=== PATIENT | female | born 1990 | race Caucasian/White ===

== ENCOUNTER 2020-07-30 08:14 | Emergency (ER) | payer OTHER, SELFPAY ==
[2020-07-30 08:21] VITALS: BMI 38.1
[2020-07-30 08:30] VITALS: BP 140/89; PULSE 92; RESP 16; TEMP 36.9; O2SAT 97; O2SAT 98
[2020-07-30] MEDS: diphenhydrAMINE 50 mg/mL SDV 1mL IVP (08:53)
[2020-07-30] MEDS: promethazine 25 mg/mL SDV 1 mL IM (08:55)
[2020-07-30] MEDS: ketorolac 30 mg/mL INJ IVP (08:56)
[2020-07-30] MEDS: sodium chloride 0.9% 1,000 ML 999 ML IV (08:57)
--- NOTE | 2020-07-30 09:04 | ED_ITS ---
HPI - General Adult General: Chief complaint: General Medical Stated complaint: Migrane Time Seen by Provider: 07/30/20 08:20 History of Present Illness: HPI narrative: 30-year-old female presents emergency room with migraine for the last 8 days. She has tried Toradol and Phenergan at the walk-in clinic is also tried various other home remedies and prescription Flexeril with no relief of pain. No vomiting she does have some visual effects she has a dull ache in the left occipital region. This is similar to previous migraines but is become more intense and longer lasting than usual. Normally she treats it with Tylenol and ibuprofen she is on valproic acid for prophylaxis. She was seen this morning in her walk-in clinic at her primary care doctor's office and referred here for potential DHE infusion. Onset (ago): day(s) (8) Location: head Severity: severe Quality: dull and constant Pain Consistency: constant Relieving factors: none Exacerbating factors: none Associated symptoms: Reports headache(s) and nausea; Deny chest pain, confusion, cough, diaphoresis, decreased appetite, dyspnea, fevers/chills, malaise, rash, palpitations, seizures, short of breath, syncope, vomiting or weakness Treatments prior to arrival: none Review of Systems Const: Denies: malaise or diaphoresis ENMT: Denies: throat pain, ear or mastoid pain, nasal discharge or nasal congestion Card: Denies: chest pain, palpitations or syncope Resp: Denies: dyspnea GI: Reports: nausea; Denies: vomiting : Denies: flank pain, difficulty voiding, dysuria, urinary frequency or urinary urgency Skin/Breast: Denies: rash Neuro: Reports: headache(s); Denies: confusion PFSH ED PFSH: Family History Mother Diabetes pre-stage Denies family history of Colon cancer Ovarian cancer Clotting disorder Heart disease Hyperlipidemia Breast cancer Suicide Bleeding disorder Hypertension Uterine cancer Stroke Social History Smoking and tobacco status: former smoker Alcohol intake: current Alcohol intake frequency: few times a week Alcohol type: wine and hard liquor Physical Exam Const: COMMON NORMALS: no acute distress GENERAL APPEARANCE: cooperative and comfortable ORIENTATION/CONSCIOUSNESS: Yes awake, Yes oriented to person, Yes oriented to place and Yes oriented to time HENMT: COMMON NORMALS: normocephalic, atraumatic and hearing grossly normal bilaterally HEAD & SCALP: normocephalic and atraumatic Eye: COMMON NORMALS: Equal, round and reactive pupils present, EOMs intact bilaterally, conjunctivae normal and no scleral icterus CONJUNCTIVA: Yes conjunctivae normal PUPIL: Yes Equal, round and reactive pupils present Neck/C-Spine: COMMON NORMALS: no JVD Resp: COMMON NORMALS: normal respiratory effort, No retractions, No use of accessory muscles and clear to auscultation bilaterally AUSCULTATION: clear to auscultation bilaterally Cardio: COMMON NORMALS: no JVD, regular rate, regular rhythm and No murmurs present (Cardio) RATE: regular rate RHYTHM: regular rhythm Extremity: COMMON NORMALS: normal to inspection, capillary refill normal, no clubbing, cyanosis or edema, no calf tenderness and no pedal edema Neuro: SENSORIUM/ORIENTATION: Yes oriented to person, Yes oriented to place and Yes oriented to time Skin: COMMON NORMALS: no rashes or lesions noted GENERAL SKIN EXAM: no rashes or lesions noted Course Vital Signs: Vital signs: Vital Signs Temperature 98.5 F 07/30/20 08:30 Pulse Rate 86 07/30/20 09:40 Respiratory Rate 12 07/30/20 09:40 Blood Pressure 139/99 07/30/20 09:40 Pulse Oximetry 99 07/30/20 09:40 MDM - General Adult MDM Narrative: Medical decision making narrative: Patient feeling much better. Is requesting to go home. Encouraged her to rest the remainder of the day to prevent or rebound. Discharged home with Phenergan to use as needed for breakthrough headaches follow-up with her primary care doctor. Lab Data: Labs: Lab Results 07/30/20 07/30/20 07/30/20 Range/Units 09:00 09:00 09:00 WBC 11.6 H (4.0-10.0) 10^3/ uL RBC 4.26 (4.1-5.3) 10^6/u L Hgb 11.2 L (11.5-15.3) g/dL Hct 35.5 L (37.0-47.0) % MCV 83.3 (81-99) fL MCH 26.3 L (28.0-34.0) pg MCHC 31.5 (30.0-36.0) g/dL RDW 14.1 (12.1-15.1) % Plt Count 244 (130-400) 10^3/c mm MPV 9.7 (7.4-10.4) fL Neut % (Auto) 62.8 % Lymph % (Auto) 28.3 % [place] % (Auto) 7.2 % Eos % (Auto) 0.9 % Baso % (Auto) 0.5 % Neut # (Auto) 7.28 (1.8-7.7) 10^3/u L Lymph # (Auto) 3.3 (0.8-4.8) 10^3/u L [place] # (Auto) 0.8 (0.2-0.9) 10^3/u L Eos # (Auto) 0.1 (0.0-0.8) 10^3/u L Baso # (Auto) 0.1 (0.0-0.1) 10^3/u L Nucleated RBC % (a uto) 0 % Nucleated RBCs # 0.0 /100WBC Sodium 136 (136-145) mmol/L Potassium 3.9 (3.5-5.1) mmol/L Chloride 102 (98-107) mmol/L Carbon Dioxide 24 (22-29) mmol/L Anion Gap 13.9 (5-19) BUN 9 (6-20) mg/dL Creatinine 0.4 L (0.5-0.9) mg/dL GFR Calculation 185.0 H (90-130) mL/min Glucose 83 (65-115) mg/dL Calculated Osmolal ity 280 L (285-295) mOsm/k g Calcium 8.5 (8.5-10.5) mg/dL Total Bilirubin 0.2 (0.15-1.2) mg/dL AST 14 (0-32) U/L ALT 12 (0-33) U/L Alkaline Phosphata se 59 (35-105) IU/L Total Protein 7.1 (6.6-8.7) g/dL Albumin 3.9 (3.5-5.2) g/dL Globulin 3.2 (1.3-4.6) g/dL HCG, Qual Negative (Negative) Urine Color (Yellow) Urine Appearance (CLEAR) Urine pH (5-7) Ur Specific Gravit y (1.005-1.030) Urine Protein (Negative) Urine Glucose (UA) (Normal) Urine Ketones (Negative) Urine Blood (Negative) Urine Nitrate (Negative) Urine Bilirubin (Negative) Urine Urobilinogen (Negative) mg/dL Ur Leukocyte Bria ase (Negative) Urine RBC (0-2) /hpf Urine WBC (0-5) /hpf Ur Squamous Epith Cells (0-5) /hpf Amorphous Sediment Urine Bacteria (NONE) /hpf Urine Mucus /hpf 07/30/20 Range/Units 09:00 WBC (4.0-10.0) 10^3/ uL RBC (4.1-5.3) 10^6/u L Hgb (11.5-15.3) g/dL Hct (37.0-47.0) % MCV (81-99) fL MCH (28.0-34.0) pg MCHC (30.0-36.0) g/dL RDW (12.1-15.1) % Plt Count (130-400) 10^3/c mm MPV (7.4-10.4) fL Neut % (Auto) % Lymph % (Auto) % [place] % (Auto) % Eos % (Auto) % Baso % (Auto) % Neut # (Auto) (1.8-7.7) 10^3/u L Lymph # (Auto) (0.8-4.8) 10^3/u L [place] # (Auto) (0.2-0.9) 10^3/u L Eos # (Auto) (0.0-0.8) 10^3/u L Baso # (Auto) (0.0-0.1) 10^3/u L Nucleated RBC % (a uto) % Nucleated RBCs # /100WBC Sodium (136-145) mmol/L Potassium (3.5-5.1) mmol/L Chloride (98-107) mmol/L Carbon Dioxide (22-29) mmol/L Anion Gap (5-19) BUN (6-20) mg/dL Creatinine (0.5-0.9) mg/dL GFR Calculation (90-130) mL/min Glucose (65-115) mg/dL Calculated Osmolal ity (285-295) mOsm/k g Calcium (8.5-10.5) mg/dL Total Bilirubin (0.15-1.2) mg/dL AST (0-32) U/L ALT (0-33) U/L Alkaline Phosphata se (35-105) IU/L Total Protein (6.6-8.7) g/dL Albumin (3.5-5.2) g/dL Globulin (1.3-4.6) g/dL HCG, Qual (Negative) Urine Color Yellow (Yellow) Urine Appearance Clear (CLEAR) Urine pH 7 (5-7) Ur Specific Gravit y 1.020 (1.005-1.030) Urine Protein Neg (Negative) Urine Glucose (UA) Norm (Normal) Urine Ketones Negative (Negative) Urine Blood 2+ H (Negative) Urine Nitrate Negative (Negative) Urine Bilirubin Neg (Negative) Urine Urobilinogen Norm (Negative) mg/dL Ur Leukocyte Bria ase Negative (Negative) Urine RBC 0-4 H (0-2) /hpf Urine WBC 0-4 H (0-5) /hpf Ur Squamous Epith Cells 0-4 H (0-5) /hpf Amorphous Sediment Not Reportable Urine Bacteria Trace (NONE) /hpf Urine Mucus 3+ /hpf Discharge Plan Discharge Patient Disposition: Home Clinical Impression: Migraine, intractable Condition: Stable Prescriptions: New promethazine 25 mg tablet 25 mg PO Q6H PRN (Reason: as needed for headache) Qty: 20 RF: 0 No Action divalproex [Depakote ER] 500 mg tablet extended release 24 hr 500 mg PO BID RF: 0 quetiapine [Seroquel] 50 mg tablet 50 mg PO DAILY RF: 0 fluoxetine [Prozac] 10 mg capsule 10 mg PO DAILY RF: 0 drospirenone-estradiol 0.25-0.5 mg tablet PO RF: 0 multivitamin with iron Tablet 1 tab PO DAILY RF: 0 metformin 500 mg tablet 500 mg PO BID Qty: 60 RF: 0 Discharge Orders: Discharge ED (Routine); Ordered 07/30/20 Ordered By: Justin Estrella Discharge Diet: Usual diet Discharge Activity: Increase activity as tolerated Patient Instructions: Opioid Safety Activity Restrictions/Additional Instructions: Recommend you rest for the remainder of the day and resume your usual activities tomorrow. 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
[2020-07-30] MEDS: dihydroergotamine 1 mg/mL Inj 0.5 MG IVP (09:17)
[2020-07-30 09:25] LABS: Basophils # 0.1 10^3/uL (0.0-0.1); Basophils % 0.5 %; Eosinophils # 0.1 10^3/uL (0.0-0.8); Eosinophils % 0.9 %; Hematocrit 35.5 % (37.0-47.0); Hemoglobin 11.2 g/dL (11.5-15.3); Lymphocytes # 3.3 10^3/uL (0.8-4.8); Lymphocytes % 28.3 %; Mean Corpuscular HGB Conc 31.5 g/dL (30.0-36.0); Mean Corpuscular Hemoglobin 26.3 pg (28.0-34.0); Mean Corpuscular Volume 83.3 fL (81-99); Mean Platelet Volume 9.7 fL (7.4-10.4); Monocytes # 0.8 10^3/uL (0.2-0.9); Monocytes % 7.2 %; Neutrophils # 7.28 10^3/uL (1.8-7.7); Neutrophils % 62.8 %; Nucleated Red Blood Cells % 0 %; Platelet Count 244 10^3/cmm (130-400); Red Blood Count 4.26 10^6/uL (4.1-5.3); Red Cell Distribution Width 14.1 % (12.1-15.1); White Blood Count 11.6 10^3/uL (4.0-10.0)
[2020-07-30 09:32] LABS: HCG, Serum Qual Negative (Negative)
[2020-07-30 09:36] LABS: Alanine Aminotransferase 12 U/L (0-33); Albumin Level 3.9 g/dL (3.5-5.2); Alkaline Phosphatase 59 IU/L (35-105); Anion Gap 13.9 (5-19); Aspartate Amino Transferase 14 U/L (0-32); Blood Urea Nitrogen 9 mg/dL (6-20); Calcium 8.5 mg/dL (8.5-10.5); Carbon Dioxide 24 mmol/L (22-29); Chloride 102 mmol/L (98-107); Globulin 3.2 g/dL (1.3-4.6); Glucose 83 mg/dL (65-115); Osmolality Calculated 280 mOsm/kg (285-295); Potassium 3.9 mmol/L (3.5-5.1); Sodium 136 mmol/L (136-145); Total Bilirubin 0.2 mg/dL (0.15-1.2); Total Protein 7.1 g/dL (6.6-8.7)
[2020-07-30 09:40] VITALS: BP 139/99; PULSE 86; RESP 12; O2SAT 99
[2020-07-30 09:47] LABS: Urine Appearance Clear (CLEAR); Urine Color Yellow (Yellow); pH Urine 7 (5-7)
[2020-07-30 09:48] LABS: Add Urine Microscopic? YES; Bilirubin Urine Neg (Negative); Blood Urine 2+ (Negative); Glucose Urine UA Norm (Normal); Ketones Urine Negative (Negative); Leukocyte Esterase Urine Negative (Negative); Nitrate Urine Negative (Negative); Protein Urine Neg (Negative); Urobilinogen Urine Norm (Negative)
[2020-07-30 09:49] LABS: RBC Urine 0-4 /hpf (0-2); Squamous Epithelial Cell Urine 0-4 /hpf (0-5); WBC Urine 0-4 /hpf (0-5)
[2020-07-30 09:50] LABS: Add Urine Culture? No; Bacteria Urine TRACE /hpf; Mucus Urine 3+ /hpf
== END 2020-07-30 09:52 | disposition home or self-care (01) ==
PROVIDERS: Emergency Provider Family Medicine
DX: G43.819 Other migraine, intractable, without status migrainosus (principal); Z87.891 Personal history of nicotine dependence
CPT/HCPCS: 80053; 81001; 84703; 85025; 96361; 96374; 96375; J1110; J1200; J1885; J2550; J7030

== ENCOUNTER → 2020-12-21 10:29 | Outpatient (BNVA) | payer OTHER, SELFPAY | PROVIDERS: Visit Provider Obstetrics & Gynecology | DX: N92.0 Excessive and frequent menstruation with regular cycle (principal) | CPT/HCPCS: 88305 ==

== ENCOUNTER → 2021-01-05 08:05 | Outpatient (BNVA) | payer OTHER, SELFPAY | PROVIDERS: Visit Provider Obstetrics & Gynecology | DX: N88.8 Other specified noninflammatory disorders of cervix uteri (principal); N92.0 Excessive and frequent menstruation with regular cycle; N94.6 Dysmenorrhea, unspecified | CPT/HCPCS: 76830 ==

== ENCOUNTER → 2021-01-21 13:16 | Outpatient (BNVA) | payer OTHER, SELFPAY | PROVIDERS: Visit Provider Obstetrics & Gynecology | DX: N93.9 Abnormal uterine and vaginal bleeding, unspecified (principal); N94.6 Dysmenorrhea, unspecified; R10.2 Pelvic and perineal pain; N92.0 Excessive and frequent menstruation with regular cycle; Z20.822 Contact with and (suspected) exposure to COVID-19 | CPT/HCPCS: 87635 ==

== ENCOUNTER 2021-01-25 08:53 | Observation (INO) | payer OTHER, SELFPAY ==
[2021-01-24 11:11] VITALS: BMI 38.2
[2021-01-25] VITALS (20 sets, daily range): BP systolic 102–145; BP diastolic 64–84; PULSE 53–99; RESP 14–20; TEMP 36.2–36.7; O2SAT 92–100
[2021-01-25] MEDS: sodium chloride 0.9% 1,000 ML 30 ML IV (06:34)
[2021-01-25] MEDS: acetaminophen 1,000 MG/100 ML PIGGYBACK 400 MG IV (06:39)
[2021-01-25] MEDS: CELEcoxib 200 mg Capsule 400 MG PO (06:47)
[2021-01-25] MEDS: gabapentin 300 mg Capsule PO (06:47)
[2021-01-25] MEDS: phenazopyridine 100 mg Tablet 200 MG PO (06:47)
[2021-01-25] MEDS: scopolamine 1.5 Patch 1 PATCH TRANSDERMA (06:47)
[2021-01-25 06:49] LABS: Basophils # 0.1 10^3/uL (0.0-0.1); Basophils % 0.5 %; Eosinophils # 0.1 10^3/uL (0.0-0.8); Eosinophils % 1.1 %; Hematocrit 39.1 % (37.0-47.0); Hemoglobin 12.2 g/dL (11.5-15.3); Lymphocytes # 3.7 10^3/uL (0.8-4.8); Lymphocytes % 36.4 %; Mean Corpuscular HGB Conc 31.2 g/dL (30.0-36.0); Mean Corpuscular Hemoglobin 26.4 pg (28.0-34.0); Mean Corpuscular Volume 84.6 fl (81-99); Mean Platelet Volume 9.8 fL (7.4-10.4); Monocytes # 0.9 10^3/uL (0.2-0.9); Monocytes % 8.9 %; Neutrophils # 5.42 10^3/uL (1.8-7.7); Neutrophils % 52.8 %; Nucleated Red Blood Cells % 0 %; Platelet Count 239 10^3/cmm (130-400); Red Blood Count 4.62 10^6/uL (4.1-5.3); Red Cell Distribution Width 14.2 % (12.1-15.1); White Blood Count 10.3 10^3/uL (4.0-10.0)
[2021-01-25 06:50] LABS: OR HCG Qualitative Urine Negative (Negative)
[2021-01-25] MEDS: ketorolac 30 mg/mL INJ IVP ×4 (06:55→21:22)
--- NOTE | 2021-01-25 06:55 | W.PM.OPSUD ---
Surgery/Procedure H&P Update DATE OF PROCEDURE: January 25, 2021 DATE H&P PERFORMED: 12/21/20 H&P UPDATE INFORMATION: I have reviewed H&P completed within last 30 days, I have examined patient prior to procedure and No changes to prior documentation PREOP DIAGNOSIS: menorrhagia, dysmenorrhea, pelvic pain PLANNED PROCEDURE: Operation Date: 01/25/21 07:00 Proposed Procedures p Laparoscopic assisted vaginal hysterectomy, bilateral salpingectomy (92147) r10.2 n94.6 n93.9(Not Applicable) - Lucy Reynolds MD
--- NOTE | 2021-01-25 06:58 | ANES.PREANE2 ---
Pre-Anesthetic Assessment Pre-Anesthetic Assessment: Height/Weight: Height 1.65 m Weight 104.326 kg Temp Pulse Resp BP Pulse Ox 97.1 F L 90 18 145/84 96 01/25/21 06:21 01/25/21 06:21 01/25/21 06:21 01/25/21 06:21 01/25/21 06:21 Preop Diagnosis: menorrhagia, dysmenorrhea, pelvic pain Proposed Procedure: Operation Date: 01/25/21 07:00 Proposed Procedures p Laparoscopic assisted vaginal hysterectomy, bilateral salpingectomy (44066) r10.2 n94.6 n93.9(Not Applicable) - Lucy Reynolds MD Was Beta Sylvia taken within 24 hours: Yes Was Clonidine taken within 24 hours: N/A Last intake: Intake Last Liquid Date 01/24/21 Last Liquid Time 21:00 Last Solid Date 01/24/21 Last Solid Time 21:00 Social: Social History: No alcohol and No tobacco Exam: Pre-Anes Outpt Exam: alert, oriented x 3, clear to auscultation bilaterally and regular rate & rhythm Airway: Submandibular: WNL Cervical ROM: WNL MP: 2 Dentition: Full Metabolic: Metabolic: Morbid obesity Neuropsych: Neuropsych: Anxiety and Depression Anesthetic Plan: ASA status: 2 Anesthesia: General Risk of > 500 ml blood loss (7ml/kg in children): No Meds/Allergies Current Medications: Current Medications Generic Name Dose Route Start Last Admin Trade Name Freq PRN Reason Stop Dose Admin Sodium Chloride 1,000 mls @ 30 ml s/hr 01/25/21 06:15 01/25/21 06:34 Sodium Chloride 0.9% IV 01/26/21 06:14 30 mls/hr .Q24H TONY Administration PFSH Anesthesia PFSH: Family History Mother Diabetes pre-stage Denies family history of Colon cancer Ovarian cancer Clotting disorder Heart disease Hyperlipidemia Breast cancer Suicide Bleeding disorder Hypertension Uterine cancer Stroke Social History Smoking and tobacco status: former smoker Alcohol intake: current Alcohol intake frequency: few times a week Alcohol type: wine and hard liquor Female Reproductive History: Date of last menstrual period: 01/12/21 Data Anesthesia CBC & Chem 7: 01/25/21 06:34 01/25/21 06:34 Other Labs: Laboratory Results - last 48 hr 01/25/21 01/25/21 06:15 06:34 WBC 10.3 H RBC 4.62 Hgb 12.2 Hct 39.1 MCV 84.6 MCH 26.4 L MCHC 31.2 RDW 14.2 Plt Count 239 MPV 9.8 Neut % (Auto) 52.8 Lymph % (Auto) 36.4 [place] % (Auto) 8.9 Eos % (Auto) 1.1 Baso % (Auto) 0.5 Neut # (Auto) 5.42 Lymph # (Auto) 3.7 [place] # (Auto) 0.9 Eos # (Auto) 0.1 Baso # (Auto) 0.1 Nucleated RBC % (auto) 0 Nucleated RBCs # 0.0 Urine HCG, Qual Negative Cardiac Studies: No Data to Display
[2021-01-25] MEDS: levofloxacin-dextrose 5 % 500 MG/100 ML PREMIX 100 MG IV (07:02)
[2021-01-25] MEDS: metroNIDAZOLE IV 500 MG/100 ML PREMIX 100 MG IV (07:10)
[2021-01-25 07:17] LABS: Anion Gap 15.8 (5-19); Blood Urea Nitrogen 13 mg/dL (6-20); Calcium 8.3 mg/dL (8.5-10.5); Carbon Dioxide 25 mmol/L (22-29); Chloride 102 mmol/L (98-107); Glucose 84 mg/dL (65-115); Osmolality Calculated 287 mOsm/kg (285-295); Potassium 3.8 mmol/L (3.5-5.1); Sodium 139 mmol/L (136-145)
[2021-01-25] MEDS: vasopressin 20 unit/mL INJ INJECTION (08:06)
--- NOTE | 2021-01-25 08:56 | P.OP_ITS ---
Operative Report Date of procedure: January 25, 2021 Pre-op Diagnosis: menorrhagia, dysmenorrhea, pelvic pain Post-op diagnosis: same Post-op Findings: 10 week sized uterus, normal appearing ovaries, falope rings on fallopian tubes, otherwise normal appearing. Procedure Done: laparscopic assisted vaginal hysterectomy with bilateral salpingectomy and cystoscopy Specimens removed/disposition: uterus and bilateral fallopian tubes to pathology Anesthesia: General Estimated blood loss (mL): 100 IV fluids (mL): 1,000 Urine output (mL): 150 Complications: none Condition: stable Disposition: floor Brief History: The patient was seen for a complaint of menorrhagia, dysmenorrhea and pelvic pain. an ultrasound showed an enlarged uterus without fibroids. Procedure: The patient was taken to the operating room where general anesthesia was administered and found to be adequate. She was prepped and draped in the normal sterile fashion in the dorsal lithotomy position in [facility]. A Schwartz catheter was placed. A weighted speculum was placed into the vagina and the anterior lip of the cervix was grasped with a single tooth tenaculum. The Zumi uterine manipulator was placed. The weighted speculum was removed. The gloves were changed and attention was turned to the abdomen. A 5 mm infraumbilical incision was made. Using a 5 mm port with the camera, the port was placed into the abdomen. The abdomen was insufflated. Two low, lateral 5 mm ports were placed on the left and right under direct visualization from the camera. The right tube was grasped and elevated. Using the laparoscopic cautery, the mesosalpinx was divided between the ovary and tube. The tube was removed. This was performed the same way on the left. The uteroovarian ligaments as well as the round ligaments were ligated. Attention was then turned to the vaginal portion of the procedure. The weighted speculum was placed into the vagina. The zumi manipulator was removed. The single tooth tenaculum was removed and replaced with the rose's tenaculum. 10 mL of dilute Pitressin was injected at the vesicovaginal junction. A circumferential incision was made at the vesicovaginal junction and the vaginal mucosa reflected cephalad. The posterior peritoneum was entered sharply with the Metzenbaum scissors and the long weighted speculum replaced. Using the Junior clamps the uterosacral ligaments were clamped cut and suture- ligated. The anterior peritoneum was entered sharply with the metzenbaum scissors. Then sequentially the uterine arteries and cardinal ligaments were clamped cut and suture-ligated. A single-tooth tenaculum was used to deliver the uterus. The remaining segement of the utero-ovarian ligaments were clamped cut and suture-ligated bilaterally and the specimen was removed. There was good hemostasis with only mild bleeding from the cuff. The peritoneum was closed with a pursestring using 2-0 Vicryl. The vaginal cuff was closed with 0 Vicryl in a running locked pattern incorporating the uterosacral ligaments into the la teral aspects of the vaginal cuff. The Schwartz catheter was removed and the cystoscope advanced into the bladder. The patient was given pyridium and bilateral spill was noted. There were no injuries or deficits noted in the bladder. The cystoscope was removed and the Schwartz was replaced. Vaginal packing was placed for good hemostasis. Tolerated the procedure well. Sponge lap and needle counts were correct x3. She was taken to the recovery room in stable condition.
[2021-01-25] MEDS: HYDROmorphone 1 mg/mL INJ 1 mL 0.5 MG IVP ×3 (09:20→09:42)
--- NOTE | 2021-01-25 09:53 | SUR.PHASEI ---
PT AWAKE ALERT TAKIING ICE CHIPS PT STILL C/O OF PAIN TO LOWER BACK NOW AND ABD SEE EARLIER MEDS GIVEN PT RELAX LOOKING NOW WITH HR OF 56 SATS 97% ON 3LNC PT DOZING OFF AND ON , VSS REPORT CALLED TO FLOOR
--- NOTE | 2021-01-25 10:30 | SUR.PHASEI ---
0905 DR DUNAWAY AT BEDSIDE AND ACCOUNTING SUPPORT SPECIALIST AND DR BENAVIDEZ TO GIVE TORDOL 30 MG IV NOW FOR PT PAIN OF 10 SEE OTHER MEDS ORDERED
--- NOTE | 2021-01-25 10:31 | SUR.PHASEI ---
1005 PT TO OB AWAKE ALERT WALKED DOWN TO OB WAITING ROOM, PT MOVES SELF TO BED WITH NO ASSIST, BUT STILL C/O OF PAIN AND NOW NAUSEA, PT REPOSITIONED AND COOL CLOTH TO FOREHEAD. HANDOFF AT BEDSIDE.
[2021-01-25] MEDS: ondansetron 2 mg/ML SDV 2 mL 4 MG IVP (10:32)
[2021-01-25] MEDS: HYDROcodone-acetaminophen 5-325 mg Tablet PO ×2 (10:32→17:56)
[2021-01-25] MEDS: clindamycin 900 MG/50 ML PREMIX 100 MG IV ×2 (10:33→17:48)
[2021-01-25] MEDS: HYDROmorphone 1 mg/mL INJ 1 mL 1.5 MG IVP (12:37)
[2021-01-25] MEDS: dextrose 5%-lactated ringers 1,000 ML 125 ML IV ×2 (14:43→22:55)
--- NOTE | 2021-01-25 16:01 | ANE.PACU2 ---
Inpatient post-anesthesia follow up: Airway intact: Yes Vital signs: Temperature 98.1 F Pulse Rate 69 Respiratory Rate 15 Blood Pressure 118/74 Pulse Oximetry 97 Oxygen Delivery Me thod Nasal Cannula Oxygen Flow Rate 1.5 Fraction of Inspir ed Oxygen Hydration adequate: Yes Nausea and vomiting: No Pain level: 2 Mental status: Baseline
[2021-01-25] MEDS: divalproex ER 500 mg Tablet (24H) 1000 MG PO (17:49)
[2021-01-25] MEDS: docusate sodium 100 mg Capsule PO (17:49)
[2021-01-25] MEDS: hyDROXYzine 25 mg Capsule 50 MG PO (19:27)
[2021-01-25] MEDS: fluoxetine 10 mg Capsule PO (21:20)
[2021-01-25] MEDS: quetiapine 100 mg Tablet 50 MG PO (21:20)
[2021-01-25] MEDS: propranolol 20 mg Tablet 10 MG PO (21:21)
[2021-01-26] MEDS: HYDROcodone-acetaminophen 5-325 mg Tablet PO ×2 (00:23→06:12)
[2021-01-26 01:18] VITALS: RESP 18
[2021-01-26] MEDS: HYDROmorphone 1 mg/mL INJ 1 mL 1.5 MG IVP (01:18)
[2021-01-26] MEDS: ketorolac 30 mg/mL INJ IVP (03:38)
[2021-01-26 03:44] VITALS: BP 97/58; PULSE 75; RESP 17; O2SAT 94
[2021-01-26] MEDS: hyDROXYzine 25 mg Capsule 50 MG PO (04:45)
[2021-01-26 05:48] LABS: Hematocrit 33.8 % (37.0-47.0); Hemoglobin 10.4 g/dL (11.5-15.3); Mean Corpuscular HGB Conc 30.8 g/dL (30.0-36.0); Mean Corpuscular Hemoglobin 27.1 pg (28.0-34.0); Mean Platelet Volume 10.3 fL (7.4-10.4); Platelet Count 190 10^3/cmm (130-400); Red Blood Count 3.84 10^6/uL (4.1-5.3); Red Cell Distribution Width 14.3 % (12.1-15.1); White Blood Count 12.5 10^3/uL (4.0-10.0)
[2021-01-26] MEDS: divalproex ER 500 mg Tablet (24H) PO (06:07)
--- NOTE | 2021-01-26 06:53 | PM.DCS ---
Discharge Providers Date of Admission: 01/25/21 08:53 Date of Discharge: January 26, 2021 Attending Provider at Admission: Lucy Reynolds MD Attending Provider at Discharge: Lucy Reynolds MD Primary Care Provider: Heidi Spangler Diagnoses at Discharge Discharge Diagnosis (1) Postoperative state: Status: Acute Reason for Visit Reason for Visit: Laparoscopic assisted vaginal hysterectomy, bilate Hospital Course Hospital Course The patient was admitted for surgery. She did well postoperatively and was ready for discharge. Physical Exam Narrative: EXAM NARRATIVE: The patient is having some pain this morning. A constant dull ache. otherwise doing well. Const: COMMON NORMALS: no acute distress, patient oriented x3, no limitations, healthy appearing, alert and well nourished GENERAL APPEARANCE: cooperative, comfortable, well kempt and well developed ORIENTATION/CONSCIOUSNESS: Yes awake, Yes oriented to person, Yes oriented to place and Yes oriented to time Resp: COMMON NORMALS: normal respiratory effort EFFORT & INSPECTION: Yes able to speak in complete sentences : OTHER: packing removed Extremity: COMMON NORMALS: no clubbing, cyanosis or edema and no calf tenderness Neuro: COMMON NORMALS: patient oriented x3 SENSORIUM/ORIENTATION: Yes alert, Yes oriented to person, Yes oriented to place and Yes oriented to time Psych: APPEARANCE: Yes well kempt Urinary Catheter Management^: Schwartz: Cath Placed During This Visit: yes, but has since been removed by the nurse Reason for Continuing Indwelling Catheter: Decision to DC Catheter Urinary Catheter Date of Insertion: 01/25/21 Urinary Catheter Time of Insertion: 07:34 Date Urinary Catheter Removed: 01/26/21 Time Urinary Catheter Discontinued: 05:00 Discharge Data Data Completed and Pending: Pending at discharge Category Date Time Status ES surgery / GI i mages Routine Exams 01/25/21 06:40 Taken Urine Culture Rou iv[facility] Lab 01/25/21 07:36 Received Pathology: Surgic al [PTH] Routine Pth 01/25/21 08:49 Received Labs from last 24 hours 01/26/21 01/25/21 05:18 06:34 WBC 12.5 H RBC 3.84 L Hgb 10.4 L Hct 33.8 L MCV 88.0 MCH 27.1 L MCHC 30.8 RDW 14.3 Plt Count 190 MPV 10.3 Sodium 139 Potassium 3.8 Chloride 102 Carbon Dioxide 25 Anion Gap 15.8 BUN 13 Creatinine 0.4 L GFR Calculation 185.0 H Glucose 84 Calculated Osmolal ity 287 Calcium 8.3 L Vitals: Last Vital Signs Temp 98.1 F 01/25/21 09:06 Pulse 75 01/26/21 03:44 Resp 17 01/26/21 03:44 BP 97/58 01/26/21 03:44 Pulse Ox 94 01/26/21 03:44 Discharge Plan Discharge Patient Disposition: Home Condition: Stable Prescriptions: New hydrocodone-acetaminophen 5-325 mg Tablet 1 tab PO Q4H PRN (Reason: Moderate To Severe Pain) Qty: 30 RF: 0 Continued quetiapine [Seroquel] 50 mg tablet 50 mg PO DAILY RF: 0 fluoxetine [Prozac] 10 mg capsule 10 mg PO DAILY RF: 0 multivitamin with iron Tablet 1 tab PO DAILY RF: 0 divalproex [Depakote ER] 500 mg tablet extended release 24 hr See Rx Instructions PO BID RF: 0 propranolol 10 mg tablet 20 mg PO BID RF: 0 hydroxyzine HCl 25 mg tablet 25 mg PO BID PRN (Reason: pain) RF: 0 cyclobenzaprine 5 mg tablet 5 mg PO TID PRN (Reason: muscle spasm ) RF: 0 promethazine 25 mg tablet 25 mg PO Q6H PRN (Reason: nausea) RF: 0 Discharge Orders: Discharge Order (Routine); Ordered 01/26/21 Ordered By: Lucy Reynolds Patient Instructions: Opioid Safety Discharge Attestations Time Spent in Discharge Care*: less than 30 min Quality Metrics Clinical Quality Measures During this hospital stay, did patient experience: None Coding Level of Care Code Acute g DC note Diagnoses Postoperative state Z98.890
[2021-01-26] MEDS: propranolol 20 mg Tablet PO (08:19)
[2021-01-26] MEDS: docusate sodium 100 mg Capsule PO (08:19)
[2021-01-26] MEDS: ibuprofen 800 mg tablet PO (08:19)
[2021-01-26 09:47] VITALS: BP 116/77; PULSE 69; RESP 17; O2SAT 98
--- NOTE | 2021-01-26 18:50 | PC.NURSE ---
Dilaudid waste witnessed with Dionisio Enriquez RN but was not documented in the pixys for 01/25/21 1237 admin.
--- NOTE | 2021-01-27 15:20 | W.PM.OPSUD ---
Surgery/Procedure H&P Update DATE OF PROCEDURE: January 25, 2021 DATE H&P PERFORMED: 01/21/21 H&P UPDATE INFORMATION: I have reviewed H&P completed within last 30 days, I have examined patient prior to procedure and No changes to prior documentation PREOP DIAGNOSIS: menorrhagia, dysmenorrhea, pelvic pain PLANNED PROCEDURE: Operation Date: 01/25/21 07:00 Proposed Procedures p Laparoscopic assisted vaginal hysterectomy, bilateral salpingectomy (32206) r10.2 n94.6 n93.9(Not Applicable) - Lucy Reynolds MD
== END 2021-01-26 10:36 | disposition home or self-care (01) ==
LOC: OBGYN 08:59
PROVIDERS: Anesthesiology; Admitting Provider Obstetrics & Gynecology; PCP Physician Assistant; Visit Provider Obstetrics & Gynecology
PROC: 0UT9FZZ Resection of Uterus, Via Natural or Artificial Opening With Percutaneous Endoscopic Assistance (ICD-10-PCS; CPT 58552; principal; 2021-01-25 07:00)
PROC: (CPT 58661; 2021-01-25 07:00)
PROC: 0TJB8ZZ Inspection of Bladder, Via Natural or Artificial Opening Endoscopic (ICD-10-PCS; CPT 52000; 2021-01-25 07:00)
DX: N92.0 Excessive and frequent menstruation with regular cycle (principal); N94.6 Dysmenorrhea, unspecified; R10.2 Pelvic and perineal pain; E66.01 Morbid (severe) obesity due to excess calories; Z68.38 Body mass index [BMI] 38.0-38.9, adult; F41.9 Anxiety disorder, unspecified; F32.9 Major depressive disorder, single episode, unspecified; Z87.891 Personal history of nicotine dependence
CPT/HCPCS: 58552; 36415; 80048; 81025; 84703; 85025; 85027; 87086; 88307; 96365; 96374; G0378; J1100; J1170; J1885; J1956; J2405; J2704; J2710; J3010; J3490; J7030; S0030

== ENCOUNTER → 2021-01-31 11:10 | Outpatient (BNVA) | payer OTHER, SELFPAY | PROVIDERS: PCP Physician Assistant; Visit Provider Obstetrics & Gynecology | DX: Z98.890 Other specified postprocedural states (principal) | CPT/HCPCS: 80053; 85025 ==

== ENCOUNTER → 2021-12-15 08:45 | Outpatient (BNVA) | payer OTHER, SELFPAY | PROVIDERS: PCP Physician Assistant; Referring Provider Physician Assistant; Visit Provider Internal Medicine | DX: R79.82 Elevated C-reactive protein (CRP) (principal); R76.8 Other specified abnormal immunological findings in serum; M25.50 Pain in unspecified joint; M70.60 Trochanteric bursitis, unspecified hip; M72.2 Plantar fascial fibromatosis; L40.9 Psoriasis, unspecified | CPT/HCPCS: 72202; 73120; 80053; 82784; 83516; 83735; 84100; 85651; 86140; 86704; 86803; 87340 ==

== ENCOUNTER → 2022-01-18 15:27 | Outpatient (BNVA) | payer OTHER, SELFPAY | PROVIDERS: PCP Physician Assistant; Visit Provider Emergency Medicine | DX: J18.9 Pneumonia, unspecified organism (principal) | CPT/HCPCS: 71046 ==

== ENCOUNTER 2022-01-18 17:09 | Observation (INO) | payer OTHER, SELFPAY ==
[2022-01-18 17:52] VITALS: BMI 37.0
[2022-01-18 18:24] VITALS: BP 121/71; PULSE 102; RESP 17; TEMP 37.1; O2SAT 95
[2022-01-18] MEDS: sodium chloride 0.9% 1,000 ML 100 ML IV (19:30)
[2022-01-18] MEDS: cefepime 2,000 MG in sodium chloride 0.9% (plus) 50 ML 100 MG IV (19:31)
--- NOTE | 2022-01-18 19:43 | PM.HP ---
Providers/Chief Complaint Admitting Physician: Rip Gaytan DO Primary Care Provider: Heidi Spangler Chief Complaint: pneumonia History of Present Illness Bibiana Tan is a 31 year old female who began having symptoms around January 03 or . She does not feel well weak and tired with a low-grade fever and occasional nonproductive cough. She was treated with a Z-Aren which was completed on January 10. She was not any better. 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 On January 13 she was flush did not feel well her blood pressure was up heart rate was around 130 and she had a low-grade temp. She went to an urgent care and chest x-ray was done that showed a right middle lobe pneumonia. She was placed on a 5-day course of Levaquin. Which she finished today. She went back to an urgent care for similar complaints a repeat chest x-ray showed pneumonia. She was severely tachycardic with activity. Her resting heart rate was around 110 and elevated to 150 with activity. Review of Systems Const: Denies: chills Eyes: Denies: change in vision ENMT: Denies: throat pain or nasal congestion Card: Denies: chest pain or palpitations Resp: Denies: dyspnea or productive cough GI: Denies: abdominal pain, nausea, vomiting or change in stool character : Denies: dysuria Musc: Denies: back pain or extremity pain Skin/Breast: Denies: rash or lesions Neuro: Denies: dizziness Psych: Denies: anxiety or depression Masoud/Lymph: Denies: easy bruising or easy bleeding Medications/Allergies Home Medications Medication Instructions Recorded Confirmed Last Taken Type cyclobenzaprine 5 mg tablet 5 mg PO TID PRN muscle spasm #20 12/10/21 01/10/22 Unknown Rx tabs hydroxychloroquine 200 mg tablet 200 mg PO BID #60 tabs 01/10/22 01/10/22 Unknown Rx levofloxacin 750 mg tablet 750 mg PO DAILY 01/18/22 01/18/22 Unknown History Allergies Allergy/AdvReac Type Severity Reaction Status Date / Time minocycline Allergy Severe severe Verified 01/18/22 14:52 hives, jiont swelling vancomycin Allergy Severe red man Verified 01/18/22 14:52 syndrome sulfamethoxazole Allergy Mild fine white Verified 01/18/22 14:52 [From Bactrim] rash/ itching trimethoprim [From Bactrim] Allergy Mild fine white Verified 01/18/22 14:52 rash/ itching amoxicillin Allergy hives Verified 01/18/22 14:52 PFSH Acute PFSH: Medical History RAYNE positive Family History Mother Diabetes pre-stage Arthritis Denies family history of Colon cancer Ovarian cancer Clotting disorder Heart disease Hyperlipidemia Breast cancer Suicide Bleeding disorder Hypertension Uterine cancer Stroke Social History Smoking and tobacco status: never smoked Alcohol intake: current Alcohol intake frequency: few times a week Alcohol type: wine and hard liquor Lives independently: Yes Household members: spouse and children Marital status: Female Reproductive History: Date of last menstrual period: 01/12/21 Vitals/I&O/Wt Last Vital Signs Temp 98.8 F 01/18/22 18:24 Pulse 102 H 01/18/22 18:24 Resp 17 01/18/22 18:24 BP 121/71 01/18/22 18:24 Pulse Ox 95 01/18/22 18:24 O2 Del Method 01/18/22 18:24 Weight last 48 hrs Weight 104.054 kg Physical Exam Narrative: In general patient appears her stated age. She is mildly obese. She appears comfortable. H EENT. Head is normocephalic atraumatic pupils are equal round reactive to light and accommodation extraocular muscles are intact there is no scleral icterus neck is supple no JVD carotid bruits or lymphadenopathy mucous membranes in the nasal and pharyngeal pharynx are normal. Lymphatic. No lymphadenopathy appreciated. Chest. Rises symmetrically with inspiration. No use of accessory muscles Cardio. Normal S1-S2 without murmurs clicks gallops or rubs the rate is tachycardic GI. Normal active bowel sounds soft nontender nondistended no hepatosplenomegaly Back. No scoliosis or pain on spine. No CVA tenderness Extremities. No clubbing cyanosis or edema Psych. Patient is alert and oriented with normal thought process and mood. Skin. No lesions or rashes noted. Data Other Labs: Pending labs CXR: My impression: Hazy infiltrate of the right lower lobe. Radiologist's impression: Findings: There is a patchy opacity extending from the right hilum into the right lower lobe which probably represents acute pneumonia. No nodules, masses or effusions are seen. The heart is normal. The pulmonary vascularity is not increased. No pneumothorax is seen. There is an neck plus obscuring minimal detail over the chest. There are calcified granulomas throughout both lungs. XR/XR chest 2V* [id number] Impression: Probable patchy right lower lobe pneumonia. A&P Assessment and plan (1) Pneumonia: Patient will be admitted for IV antibiotics. Due to her multiple allergies, I chose cefepime and repeat Levaquin at higher dose. We will obtain a urine for lead and Legionella. And also baseline labs. Will place on albuterol nebs Status: Acute (2) Tachycardia: Treat with fluids for now and follow. Status: Acute (3) Failure of outpatient treatment: Failed both full course of Zithromax and Levaquin as an outpatient Status: Acute (4) Allergy to multiple antibiotics: Allergic to minocycline and vancomycin Bactrim and amoxicillin. Status: Acute Plan Placed under observation treat with IV antibiotics and IV fluids. I will order a CT scan to rule out PE and/or obstructive pneumonia. Attestations Medical Necessity Statement*: Patient has failed 2 antibiotics as an outpatient for the pneumonia seen on chest x-ray. At this time she requires IV antibiotics and IV fluids and work-up to prevent worsening of symptoms. 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
--- NOTE | 2022-01-18 19:53 | CTR_ITS ---
PROCEDURE INFORMATION: Exam: CTA Chest With Contrast Exam date and time: 01/18/2022 10:33 PM Age: 31 years old Clinical indication: Shortness of breath and other: Tachycardia; Patient HX: Direct admit. C/O SOB with tachycardia. Abnormal cxr from outside facility. ; Additional info: Abnormal cxr, tachycardia TECHNIQUE: Imaging protocol: Computed tomographic angiography of the chest with contrast. 3D rendering (Not supervised by radiologist): MIP and/or 3D reconstructed images were created by the technologist. Radiation optimization: All CT scans at this facility use at least one of these dose optimization techniques: automated exposure control; mA and/or kV adjustment per patient size (includes targeted exams where dose is matched to clinical indication); or iterative reconstruction. Contrast material: OMNI 350; Contrast volume: 95 ml; Contrast route: INTRAVENOUS (IV); COMPARISON: CR XR chest 2V* [id number] 01/18/2022 3:36 PM RADIATION DOSE METRICS: Total DLP (mGy-cm): 396.52 FINDINGS: Pulmonary arteries: Normal. No pulmonary emboli. Aorta: Unremarkable. No aortic aneurysm. No aortic dissection. Lungs: Follow-up CT scan after clearing of pneumonia may be helpful to rule out underlying tumor. No obvious endobronchial lesion. Pleural spaces: Unremarkable. No pneumothorax. No pleural effusion. Heart: Unremarkable. No cardiomegaly. No pericardial effusion. Lymph nodes: Dense airspace disease in the right middle lobe with perihilar adenopathy consistent with prominent right middle lobe pneumonia and reactive adenopathy. Liver: Severe fatty infiltration of the liver. Spleen: Calcified splenic granulomas. Bones/joints: Unremarkable. No acute fracture. Soft tissues: Unremarkable. CT/CT angio chest PE protcl [id number] IMPRESSION: 1. Dense airspace disease in the right middle lobe with perihilar adenopathy consistent with prominent right middle lobe pneumonia and reactive adenopathy. 2. Follow-up CT scan after clearing of pneumonia may be helpful to rule out underlying tumor. 3. Severe fatty infiltration of the liver.
[2022-01-18 20:00] VITALS: BP 144/82; PULSE 115; RESP 18; TEMP 37; O2SAT 96
[2022-01-18 20:25] VITALS: PULSE 128; RESP 18; O2SAT 98
[2022-01-18 20:25] LABS: Basophils # 0.1 10^3/uL (0.0-0.1); Basophils % 0.4 %; Eosinophils # 0.1 10^3/uL (0.0-0.8); Eosinophils % 0.5 %; Hematocrit 41.7 % (37.0-47.0); Hemoglobin 13.3 g/dL (11.5-15.3); Lymphocytes # 3.3 10^3/uL (0.8-4.8); Lymphocytes % 22.8 %; Mean Corpuscular HGB Conc 31.9 g/dL (30.0-36.0); Mean Corpuscular Hemoglobin 26.3 pg (28.0-34.0); Mean Corpuscular Volume 82.6 fl (81-99); Mean Platelet Volume 9.5 fL (7.4-10.4); Neutrophils # 10.07 10^3/uL (1.8-7.7); Nucleated Red Blood Cells % 0 %; Platelet Count 309 10^3/cmm (130-400); Red Blood Count 5.05 10^6/uL (4.1-5.3); Red Cell Distribution Width 13.4 % (12.1-15.1); White Blood Count 14.6 10^3/uL (4.0-10.0)
[2022-01-18 20:27] VITALS: O2SAT 98
[2022-01-18 20:29] VITALS: PULSE 118
[2022-01-18] MEDS: ipratropium-albuterol 3 mL Neb INHALATION (20:30)
[2022-01-18] MEDS: levofloxacin-dextrose 5 % 750 MG/150 ML PREMIX 100 MG IV (20:38)
[2022-01-18 20:46] LABS: Alanine Aminotransferase 25 U/L (0-33); Albumin Level 4.2 g/dL (3.5-5.2); Alkaline Phosphatase 91 U/L (35-105); Anion Gap 18.1 (5-19); Aspartate Amino Transferase 14 U/L (0-32); Blood Urea Nitrogen 10 mg/dL (6-20); Calcium 9.2 mg/dL (8.5-10.5); Carbon Dioxide 26 mmol/L (22-29); Chloride 100 mmol/L (98-107); Globulin 2.7 g/dL (1.3-4.6); Glomerular Filtration Rate 142.1 mL/min (90-130); Glucose 79 mg/dL (65-115); Magnesium 1.8 mg/dL (1.7-2.3); Osmolality Calculated 288 mOsm/kg (285-295); Phosphorus 4.2 mg/dL (2.5-4.5); Potassium 4.1 mmol/L (3.5-5.1); Sodium 140 mmol/L (136-145); Total Bilirubin 0.4 mg/dL (0.15-1.2); Total Protein 6.9 g/dL (6.6-8.7)
[2022-01-18] MEDS: acetaminophen 325 mg Tablet 650 MG PO (21:33)
[2022-01-18] MEDS: diphenhydrAMINE 50 mg Capsule PO (21:55)
[2022-01-18] MEDS: iohexol 350 mg/mL 100 mL Btl IV (22:35)
[2022-01-18 23:52] VITALS: BP 121/82; PULSE 113; RESP 20; TEMP 36.8; O2SAT 96
[2022-01-19] VITALS (9 sets, daily range): BP systolic 106–131; BP diastolic 66–85; PULSE 77–107; RESP 14–17; TEMP 36.8–37.3; O2SAT 94–99
--- NOTE | 2022-01-19 00:54 | PC.NURSE ---
Assumed pt care at this time. Report given from MING Kennedy.
[2022-01-19] MEDS: ipratropium-albuterol 3 mL Neb INHALATION ×2 (03:37→09:47)
[2022-01-19] MEDS: cefepime 2,000 MG in sodium chloride 0.9% (plus) 50 ML 100 MG IV (06:52)
--- NOTE | 2022-01-19 09:02 | PC.PHAR ---
pt states she finished her zpac and prednisone on 01/10/22 rx filled on 01/06/22-pt states she is no longer taking divalproex dr 500mg,prozac 10mg,propranolol 20mg or vit d 50,000units filled on 10/14/21 30d/s-pt states she hasnt started taking hydroxychloroquine 200mg bid filled on 01/10/22 30d/s-notes are made in the pharmacy comments
--- NOTE | 2022-01-19 10:33 | PC.CHAP ---
Pastoral Care Encounter/Spiritual Assessment Type of Contact [x] Declined freelance interpreter/translator visit [] Patient/Family/Request visit [] Outpatient visit [] Follow-up visit [] Physician referral [] Code/Alert [] Routine visit [] Staff referral [] Actively dying [] Patient sleeping [] Family support [] [] Out of room [] Palliative care [] [] Receiving care in room [] Pre-surgical visit [] Trauma [] Long length of stay [] ICU visit [] Other: Relational/Emotional Strength [] Patient feels connected with others/family/visitors/staff [] Distress [] Loneliness/isolation [] Abandonment Spirituality of Patient [] Person of Alondra [] Attends Jew of their Alondra [] Believes in Prayer [] Reads Bible or Worship materials [] There are Spiritual issues to be addressed Cloth Packer Interventions [] Prayer [] Active listening [] Non-anxious presence [] Spiritual/emotional support [] Crisis/trauma care [] Spiritual counseling [] Bereavement support [] Provided bereavement packet [] Provided Bible/devotional materials [] Provided toy/stuffed animal, coloring book to patient or family member [] Provided Communion [] Anointing/[place] [] Salvation [] Completed spiritual assessment [] Other: Impact on Illness or Injury [] Angry [] Fearful [] Anxious [] Often cries [] Exhaustion [] Unable to work [] Unable to attend gnosticist [] Unable to walk/stand [] Unable to read [] Unable to drive [] Unable to eat/drink [] Unable to sleep [] Unable to be with family [] Patient intubated [] Other: Summary Declined freelance interpreter/translator visit Time spent with patient 5 mins
--- NOTE | 2022-01-19 18:17 | PM.DCS ---
Discharge Providers Date of Admission: 01/18/22 17:09 Date of Discharge: January 19, 2022 Attending Provider at Admission: Rip Gaytan DO Attending Provider at Discharge: Rip Gaytan DO Primary Care Provider: Heidi Spangler Diagnoses at Discharge Discharge Diagnosis (1) Pneumonia: Status: Acute (2) Tachycardia: Status: Acute (3) Failure of outpatient treatment: Status: Acute (4) Allergy to multiple antibiotics: Status: Acute Reason for Visit Reason for Visit: pneumonia Brief History: Symptomatic pneumonia resistant to 2 rounds to outpatient antibiotics. Hospital Course Hospital Course Patient was admitted to the hospital placed on fluids. She was started on IV antibiotics including a cephalosporin and the Levaquin. I did a side consult with infectious disease who stated that strep pneumonia is losing its sensitivity to Levaquin. She agreed with starting the cephalosporin. We kept the Levaquin on for atypicals just for a longer course. Sent a urine for Legionella which was negative. MR Darrel henley screening is pending. Will follow up on MRSA tomorrow. If positive will prescribe Zyvox twice daily for 10 to 14 days. And still continue the other 2 antibiotics. If continues to be symptomatic she will likely need referral to pulmonology for bronchoscopy with sputum cultures. Also have asked her to stay off work until Sunday. Physical Exam Narrative: In general patient appears her stated age. She is mildly obese. She appears comfortable. H EENT. Head is normocephalic atraumatic pupils are equal round reactive to light and accommodation extraocular muscles are intact there is no scleral icterus neck is supple no JVD carotid bruits or lymphadenopathy mucous membranes in the nasal and pharyngeal pharynx are normal. Lymphatic. No lymphadenopathy appreciated. Chest. Rises symmetrically with inspiration. No use of accessory muscles Cardio. Normal S1-S2 without murmurs clicks gallops or rubs the rate is tachycardic GI. Normal active bowel sounds soft nontender nondistended no hepatosplenomegaly Back. No scoliosis or pain on spine. No CVA tenderness Extremities. No clubbing cyanosis or edema Psych. Patient is alert and oriented with normal thought process and mood. Skin. No lesions or rashes noted. Discharge Data Studies Completed and Pending Completed Studies During Hospitalization Category Date Time Status CTA chest [CT angio chest PE protcl [id number]] Stat Cat Scan 01/18/22 19:53 Completed Pending at discharge Category Date Time Status MRSA by PCR Stat Lab 01/19/22 15:00 Received Radiology Impressions Chest CTA 01/18/22 19:53 IMPRESSION: 1. Dense airspace disease in the right middle lobe with perihilar adenopathy consistent with prominent right middle lobe pneumonia and reactive adenopathy. 2. Follow-up CT scan after clearing of pneumonia may be helpful to rule out underlying tumor. 3. Severe fatty infiltration of the liver. Laboratory Results WBC 14.6 10^3/uL (4.0-10.0) H 01/18/22 19:32 RBC 5.05 10^6/uL (4.1-5.3) 01/18/22 19:32 Hgb 13.3 g/dL (11.5-15.3) 01/18/22 19:32 Hct 41.7 % (37.0-47.0) 01/18/22 19:32 MCV 82.6 fl (81-99) 01/18/22 19:32 MCH 26.3 pg (28.0-34.0) L 01/18/22 19:32 MCHC 31.9 g/dL (30.0-36.0) 01/18/22 19:32 RDW 13.4 % (12.1-15.1) 01/18/22 19:32 Plt Count 309 10^3/cmm (130-400) 01/18/22 19:32 MPV 9.5 fL (7.4-10.4) 01/18/22 19:32 Neut % (Auto) 69.0 % 01/18/22 19:32 Lymph % (Auto) 22.8 % 01/18/22 19:32 [place] % (Auto) 7.0 % 01/18/22 19:32 Eos % (Auto) 0.5 % 01/18/22 19:32 Baso % (Auto) 0.4 % 01/18/22 19:32 Neut # (Auto) 10.07 10^3/uL (1.8-7.7) H 01/18/22 19:32 Lymph # (Auto) 3.3 10^3/uL (0.8-4.8) 01/18/22 19:32 [place] # (Auto) 1.0 10^3/uL (0.2-0.9) H 01/18/22 19:32 Eos # (Auto) 0.1 10^3/uL (0.0-0.8) 01/18/22 19:32 Baso # (Auto) 0.1 10^3/uL (0.0-0.1) 01/18/22 19:32 Nucleated RBC % (auto) 0 % 01/18/22 19:32 Nucleated RBCs # 0.0 /100WBC 01/18/22 19:32 Sodium 140 mmol/L (136-145) 01/18/22 19:32 Potassium 4.1 mmol/L (3.5-5.1) 01/18/22 19:32 Chloride 100 mmol/L (98-107) 01/18/22 19:32 Carbon Dioxide 26 mmol/L (22-29) 01/18/22 19:32 Anion Gap 18.1 (5-19) 01/18/22 19:32 BUN 10 mg/dL (6-20) 01/18/22 19:32 Creatinine 0.5 mg/dL (0.5-0.9) 01/18/22 19:32 GFR Calculation 142.1 mL/min (90-130) H 01/18/22 19:32 Glucose 79 mg/dL (65-115) 01/18/22 19:32 Calculated Osmolality 288 mOsm/kg (285-295) 01/18/22 19:32 Calcium 9.2 mg/dL (8.5-10.5) 01/18/22 19:32 Phosphorus 4.2 mg/dL (2.5-4.5) 01/18/22 19:32 Magnesium 1.8 mg/dL (1.7-2.3) 01/18/22 19:32 Total Bilirubin 0.4 mg/dL (0.15-1.2) 01/18/22 19:32 AST 14 U/L (0-32) 01/18/22 19:32 ALT 25 U/L (0-33) 01/18/22 19:32 Alkaline Phosphatase 91 U/L (35-105) 01/18/22 19:32 Total Protein 6.9 g/dL (6.6-8.7) 01/18/22 19:32 Albumin 4.2 g/dL (3.5-5.2) 01/18/22 19:32 Globulin 2.7 g/dL (1.3-4.6) 01/18/22 19:32 Urine HCG, Qual Negative (Negative) 01/18/22 20:45 Imaging CXR: Radiologist's impression: Right middle lobe pneumonia Vitals Last Vital Signs Temp 99.2 F 01/19/22 16:00 Pulse 107 H 01/19/22 16:33 Resp 14 01/19/22 16:00 BP 130/85 01/19/22 16:00 Pulse Ox 95 01/19/22 16:33 O2 Del Method 01/19/22 16:33 Discharge Plan Discharge Patient Disposition: Home Prescriptions: New levofloxacin 750 mg tablet 750 mg PO Q24H 14 Days Qty: 14 0RF cefdinir 300 mg capsule 300 mg PO Q12H 14 Days Qty: 28 0RF Continued cyclobenzaprine 5 mg tablet 5 mg PO TID PRN (Reason: muscle spasm) Qty: 20 0RF hydroxychloroquine 200 mg tablet 200 mg PO BID Qty: 60 3RF Advil 200 mg Tablet 600 mg PO Q6H PRN (Reason: Pain) albuterol sulfate 90 mcg/actuation HFA aerosol inhaler 2 puff INHALATION QID PRN (Reason: Shortness Of Breath) Excedrin Migraine 250-250-65 mg Tablet 2 tab PO Q6H PRN (Reason: Migraine Headache) Discontinued levofloxacin 750 mg tablet 750 mg PO DAILY Rx Instructions: rx filled 01/13/22 7d/s Discharge Orders: Discharge Order (Routine); Ordered 01/19/22 Ordered By: Rip aGytan Referrals: Heidi Spangler PA [Primary Care Provider] - 01/26/22 11:00 am Discharge Diet: Advance as tolerated Discharge Activity: Increase activity as tolerated and Return to work/school after cleared by PCP/Specialist Discharge Attestations Time Spent in Discharge Care*: greater than 30 min Quality Metrics Clinical Quality Measures [ No reported AMI, CVA or VTE this stay] Coding Level of Care Code Acute Chg FW DC note Diagnoses Pneumonia J18.9 Tachycardia R00.0 Failure of outpatient treatment Z78.9 Allergy to multiple antibiotics Z88.1
== END 2022-01-19 19:00 | disposition home or self-care (01) ==
PROVIDERS: Admitting Provider Internal Medicine; PCP Physician Assistant; Visit Provider Internal Medicine
DX: J18.9 Pneumonia, unspecified organism (principal); R00.0 Tachycardia, unspecified; Z78.9 Other specified health status; Z88.1 Allergy status to other antibiotic agents
CPT/HCPCS: 36415; 71275; 80053; 81025; 83735; 84100; 85025; 87449; 87641; 94640; 94664; G0378; G0379; J0692; J1956; J7030; Q0163; Q9967

== ENCOUNTER 2022-06-16 15:35 | Emergency (ER) | payer OTHER, SELFPAY ==
[2022-06-16 15:42] VITALS: BP 174/103; PULSE 94; RESP 16; TEMP 36.7; O2SAT 98
--- NOTE | 2022-06-16 16:03 | ED_ITS ---
HPI - Headache General: Chief Complaint: Headache Stated Complaint: Headache Time Seen by Provider: 06/16/22 15:46 Source: patient Mode of arrival: ambulatory Limitations: no limitations History of Present Illness: See nursing assessment. Patient states she has had a migraine headache to the left side of her head for the past 4 to 5 days. She states she has had occasional nausea and dry heaves. She has had mild blurred vision at times. She denies any other neurological symptoms. She denies any neck or back pain. She denies any rash. She denies any photophobia. She states this headache is similar to previous migraines. She states she has tried Advil migraine, Excedrin Migraine medications. She went to the clinic yesterday and got a Toradol injection that did help with her headache for about 2 to 3 hours. She states Imitrex does not help typically and usually causes her chest discomfort. Patient has a history of migraine headaches, histoplasmosis. She denies any history of hypertension. She states her blood pressure normally runs 130s over 80s. Associated symptoms: Reports nausea and vomiting; Deny chest pain, confusion, fever(s) or rash Review of Systems Const: Denies: fever(s) or chills Eyes: Reports: blurry vision; Denies: blind spots, photophobia or seeing flashes ENMT: Denies: throat pain Card: Denies: chest pain, palpitations or irregular heart rhythm Resp: Denies: dyspnea, productive cough, non-productive cough or wheezing GI: Reports: nausea and vomiting; Denies: abdominal pain : Denies: flank pain Musc: Denies: neck pain, back pain, extremity pain or extremity swelling Skin/Breast: Denies: rash or pruritus Neuro: Reports: headache(s); Denies: numbness in extremities, weakness in extremities, sensory changes, lack of coordination, difficulty walking, dizziness, vertigo or confusion Psych: Denies: anxiety Masoud/Lymph: Denies: enlarged lymph nodes PFSH ED PFSH: Medical History RAYNE positive Family History Mother Diabetes pre-stage Arthritis Denies family history of Colon cancer Ovarian cancer Clotting disorder Heart disease Hyperlipidemia Breast cancer Suicide Bleeding disorder Hypertension Uterine cancer Stroke Social History Smoking and tobacco status: never smoked Alcohol intake: current Alcohol intake frequency: few times a week Alcohol type: wine and hard liquor Lives independently: Yes Household members: spouse and children Marital status: Female Reproductive History: Date of last menstrual period: 01/12/21 Physical Exam Const: COMMON NORMALS: no acute distress, patient oriented x3, no limitations and well nourished GENERAL APPEARANCE: cooperative OTHER: Appears in minimal discomfort due to headache. Speech is clear. No focal neurological deficits. HENMT: COMMON NORMALS: normocephalic and atraumatic HEAD & SCALP: normocephalic and atraumatic FACE & SINUS: normal facial exam Eye: COMMON NORMALS: Equal, round and reactive pupils present and EOMs intact bilaterally PUPIL: Yes Equal, round and reactive pupils present and Yes Pupil accommodation reflex normal Neck/C-Spine: COMMON NORMALS: full ROM, no lymphadenopathy, supple and no meningeal signs GENERAL: Yes normal visual inspection Lymph: LYMPHATIC: no lymphadenopathy noted Chest: COMMONS NORMALS: normal inspection of the chest and normal palpation of entire chest wall CHEST: No Ecchymosis present and No rash Resp: COMMON NORMALS: normal respiratory effort, No retractions and clear to auscultation bilaterally EFFORT & INSPECTION: No respiratory distress AUSCULTATION: clear to auscultation bilaterally Cardio: COMMON NORMALS: regular rate, regular rhythm and Peripheral pulses 2+ throughout JUGULAR VENOUS DISTENTION: no JVD RATE: regular rate RHYTHM: regular rhythm PERIPHERAL PULSES: Peripheral pulses 2+ throughout GI: COMMON NORMALS: Normal to inspection, nondistended, normoactive bowel sounds present and non-tender : COMMON NORMALS: Yes no CVA tenderness BLADDER/KIDNEY EXAM: Yes no CVA tenderness Back/Pelvis: COMMON NORMALS: no CVA tenderness Extremity: COMMON NORMALS: normal to inspection, full ROM and capillary refill normal Neuro: COMMON NORMALS: patient oriented x3, CN's II-XII intact bilaterally, no focal motor deficits and no sensory deficits noted MENINGEAL SIGNS: Yes no meningeal signs Psych: COMMON NORMALS: mental status grossly normal and Normal thought process present THOUGHT PROCESS: Normal thought process present Skin: COMMON NORMALS: no rashes or lesions noted and no wounds GENERAL SKIN EXAM: no rashes or lesions noted Course Vital Signs: Vital signs: Vital Signs Temperature 98.1 F 06/16/22 15:42 Pulse Rate 94 06/16/22 15:42 Respiratory Rate 16 06/16/22 15:42 Blood Pressure 174/103 06/16/22 15:42 Pulse Oximetry 98 06/16/22 15:42 MDM - Headache Medical Decision Making Persistent migraine headache. Do not see any signs of intracranial hemorrhage. Therefore, I do not believe CT scan of the head is warranted at this time. Patient states she is drive herself home. Therefore we will give patient prescriptions to fill at home. Discharge Plan Discharge Patient Disposition: Home Clinical Impression: Migraine Qualifiers: Migraine type: without aura Status migrainosus presence: without status migrainosus Intractability: not intractable Qualified Code(s): G43.009 - Migraine without aura, not intractable, without status migrainosus Nausea & vomiting Qualifiers: Vomiting type: unspecified Qualified Code(s): R11.2 - Nausea with vomiting, unspecified Condition: Stable Prescriptions: New Depakote ER 500 mg tablet extended release 24 hr 500 mg PO DAILY PRN (Reason: for headache) Qty: 5 1RF Compazine 5 mg tablet 5 mg PO Q8H PRN (Reason: headache or nausea) Qty: 10 1RF No Action cyclobenzaprine 5 mg tablet 5 mg PO TID PRN (Reason: muscle spasm) Qty: 20 0RF hydroxychloroquine 200 mg tablet 200 mg PO BID Qty: 60 3RF Advil 200 mg Tablet 600 mg PO Q6H PRN (Reason: Pain) albuterol sulfate 90 mcg/actuation HFA aerosol inhaler 2 puff INHALATION QID PRN (Reason: Shortness Of Breath) Excedrin Migraine 250-250-65 mg Tablet 2 tab PO Q6H PRN (Reason: Migraine Headache) Discharge Orders: Discharge ED (Routine); Ordered 06/16/22 Ordered By: Benito Louis Referrals: Heidi Spangler PA [Primary Care Provider] - 06/19/22 Discharge Diet: Advance as tolerated Discharge Activity: Increase activity as tolerated Patient Instructions: Migraine Headache (ED), Acute Nausea and Vomiting (ED) Activity Restrictions/Additional Instructions: May take Depakote daily for the next few days as needed for headache. May take Compazine or Zofran as needed for headache or nausea. May take Benadryl 50 mg every 6-8 hours as needed for headache also. Follow-up family doctor early this coming week. Return if symptoms worsen. 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
[2022-06-16] MEDS: divalproex ER 500 mg Tablet (24H) PO (16:09)
[2022-06-16] MEDS: diphenhydrAMINE 50 mg Capsule PO (16:09)
[2022-06-16] MEDS: ketorolac 30 mg/mL INJ IM (16:12)
== END 2022-06-16 16:14 | disposition home or self-care (01) ==
PROVIDERS: Emergency Provider Family Medicine; PCP Physician Assistant
DX: G43.009 Migraine without aura, not intractable, without status migrainosus (principal); R11.2 Nausea with vomiting, unspecified
CPT/HCPCS: 96372; 99284; J1885; Q0163

== ENCOUNTER 2022-06-17 14:45 | Emergency (ER) | payer OTHER, SELFPAY ==
[2022-06-17 15:08] VITALS: BP 164/93; PULSE 87; RESP 16; TEMP 36.7; O2SAT 97
--- NOTE | 2022-06-17 16:17 | PC.NURSE ---
WHILE IN LOBBY WITH PT IS SITTING IN CHAIR AWAKE AND ALERT AND IN NAD.
--- NOTE | 2022-06-17 17:43 | ED_ITS ---
Documented by User: Pete Tejada DO 06/17/22 17:46 HPI - Headache General: Chief Complaint: Headache Stated Complaint: Migraine Time Seen by Provider: 06/17/22 16:55 History of Present Illness: 31-year-old female presents with migraine. Is been going on for couple days. She was seen 2 days ago and got a Toradol shot. She was seen in in the ER yesterday and received medications. She reports that she is continue to have a migraine. The last time she had a migraine similar to this was in July 2000 in which she needed DHE infusion to help stop it. She reports that she had had a headache since that infusion. She complains of some photophobia, nausea, no vomiting, difficulty with both sounds and smells. Associated symptoms: Reports nausea; Deny chest pain, fever(s), rash or vomiting Review of Systems Const: Denies: fever(s) or chills Card: Denies: chest pain or palpitations Resp: Denies: dyspnea or productive cough GI: Reports: nausea; Denies: abdominal pain or vomiting : Denies: flank pain or difficulty voiding Musc: Denies: neck pain or back pain Skin/Breast: Denies: rash Neuro: Reports: headache(s) Psych: Denies: anxiety or depression PFSH ED PFSH: Medical History Allergy to multiple antibiotics RAYNE positive Failure of outpatient treatment Pneumonia Tachycardia Family History Mother Diabetes pre-stage Arthritis Denies family history of Colon cancer Ovarian cancer Clotting disorder Heart disease Hyperlipidemia Breast cancer Suicide Bleeding disorder Hypertension Uterine cancer Stroke Social History Smoking and tobacco status: never smoked Alcohol intake: current Alcohol intake frequency: few times a week Alcohol type: wine and hard liquor Lives independently: Yes Household members: spouse and children Marital status: Female Reproductive History: Date of last menstrual period: 01/12/21 Course Vital Signs: Vital signs: Vital Signs Temperature 98.1 F 06/17/22 15:08 Pulse Rate 87 06/17/22 15:08 Respiratory Rate 16 06/17/22 15:08 Blood Pressure 164/93 06/17/22 15:08 Pulse Oximetry 97 06/17/22 15:08 Discharge Plan Discharge Patient Disposition: Home Clinical Impression: Headache Condition: Stable Prescriptions: No Action cyclobenzaprine 5 mg tablet 5 mg PO TID PRN (Reason: muscle spasm) Qty: 20 0RF hydroxychloroquine 200 mg tablet 200 mg PO BID Qty: 60 3RF Advil 200 mg Tablet 600 mg PO Q6H PRN (Reason: Pain) albuterol sulfate 90 mcg/actuation HFA aerosol inhaler 2 puff INHALATION QID PRN (Reason: Shortness Of Breath) Excedrin Migraine 250-250-65 mg Tablet 2 tab PO Q6H PRN (Reason: Migraine Headache) Depakote ER 500 mg tablet extended release 24 hr 500 mg PO DAILY PRN (Reason: for headache) Qty: 5 1RF Compazine 5 mg tablet 5 mg PO Q8H PRN (Reason: headache or nausea) Qty: 10 1RF Discharge Orders: Discharge ED (Routine); Ordered 06/17/22 Ordered By: Rola Duran Referrals: Heidi Spangler PA [Primary Care Provider] - 1-3 days Discharge Diet: Advance as tolerated Discharge Activity: Resume usual activity Patient Instructions: General Headache (ED) Coding Level of Care Code ED Healthcare Market Consultant for Chg Fwd Documented by User: Rola Duran MD 06/17/22 18:36 HPI - Headache General: Chief Complaint: Headache Stated Complaint: Migraine Time Seen by Provider: 06/17/22 16:55 PFSH ED PFSH: Medical History Allergy to multiple antibiotics RAYNE positive Failure of outpatient treatment Pneumonia Tachycardia Family History Mother Diabetes pre-stage Arthritis Denies family history of Colon cancer Ovarian cancer Clotting disorder Heart disease Hyperlipidemia Breast cancer Suicide Bleeding disorder Hypertension Uterine cancer Stroke Social History Smoking and tobacco status: never smoked Alcohol intake: current Alcohol intake frequency: few times a week Alcohol type: wine and hard liquor Lives independently: Yes Household members: spouse and children Marital status: Course Vital Signs: Vital signs: Vital Signs Temperature 98.1 F 06/17/22 15:08 Pulse Rate 87 06/17/22 15:08 Respiratory Rate 16 06/17/22 15:08 Blood Pressure 164/93 06/17/22 15:08 Pulse Oximetry 97 06/17/22 15:08 MDM - Headache Medical Decision Making Patient presents with headache likely migraine headache she feels much improved. Headache has resolved no signs of meningitis or subarachnoid hemorrhage she is stable for discharge she is to follow-up with PCP and return if worsening. Discharge Plan Discharge Patient Disposition: Home Clinical Impression: Headache Condition: Stable Prescriptions: No Action cyclobenzaprine 5 mg tablet 5 mg PO TID PRN (Reason: muscle spasm) Qty: 20 0RF hydroxychloroquine 200 mg tablet 200 mg PO BID Qty: 60 3RF Advil 200 mg Tablet 600 mg PO Q6H PRN (Reason: Pain) albuterol sulfate 90 mcg/actuation HFA aerosol inhaler 2 puff INHALATION QID PRN (Reason: Shortness Of Breath) Excedrin Migraine 250-250-65 mg Tablet 2 tab PO Q6H PRN (Reason: Migraine Headache) Depakote ER 500 mg tablet extended release 24 hr 500 mg PO DAILY PRN (Reason: for headache) Qty: 5 1RF Compazine 5 mg tablet 5 mg PO Q8H PRN (Reason: headache or nausea) Qty: 10 1RF Discharge Orders: Discharge ED (Routine); Ordered 06/17/22 Ordered By: Rola Duran Referrals: Heidi Spangler PA [Primary Care Provider] - 1-3 days Discharge Diet: Advance as tolerated Discharge Activity: Resume usual activity Patient Instructions: General Headache (ED) Coding Level of Care Code ED Healthcare Market Consultant for Maxine Mcgee
[2022-06-17] MEDS: diphenhydrAMINE 50 mg/mL SDV 1mL 25 MG IVP (18:00)
[2022-06-17] MEDS: metoclopramide 5 mg/mL SDV 2 mL 10 MG IVP (18:00)
[2022-06-17] MEDS: dihydroergotamine 1 mg/mL Inj IVP (18:01)
[2022-06-17] MEDS: sodium chloride 0.9% 500 ML IV (18:01)
[2022-06-17 19:08] VITALS: BP 136/79; PULSE 81; RESP 14; TEMP 36.9; O2SAT 99
== END 2022-06-17 18:57 | disposition home or self-care (01) ==
PROVIDERS: Emergency Provider Emergency Medicine; PCP Physician Assistant
DX: R51.9 Headache, unspecified (principal)
CPT/HCPCS: 96374; 96375; 99284; J1110; J1200; J2765; J7040

== ENCOUNTER 2022-08-17 06:08 | Outpatient (CLI) | payer OTHER, SELFPAY ==
--- NOTE | 2022-08-17 06:30 | CT_ITS ---
WS: [id number] CT CHEST WITHOUT INTRAVENOUS CONTRAST HISTORY: Follow-up histoplasmosis. TECHNIQUE: Contiguous 5 mm axial imaging performed on the thorax. Coronal and sagittal reformats are submitted. All CT scans at [facility] use at least one of these dose optimization techniques: automated exposure control; mA and/or kV adjustment per patient size (includes targeted exams where dose is matched to clinical indication); or iterative reconstruction. CONTRAST: None DLP: 513.86 mGy.cm COMPARISON: 01/18/2022 Lungs and central airway: Marked improvement in the previously described RIGHT lung pneumonia since . There is persistent bronchial wall thickening with atelectasis beginning at the RIGHT hilum extending into the RIGHT middle lobe and along the minor fissure. There is a additional irregular op acification RIGHT lower lobe measuring 11 x 13 mm. There is subtle 7 mm nodule LEFT upper lobe not de finitely visualized on the prior exam. Pleura: Normal. No pleural effusion. Heart and pericardium: Normal size heart with no pericardial effusion. Mediastinum and johnna: Mediastinal lymph nodes are very difficult to evaluate without IV contrast. The re is fullness at the RIGHT hilum and lymph nodes were noted on the prior study. I suspect there are probably residual lymph nodes with adjacent atelectasis contributing to the hilar fullness. Vessels: Normal size aortic and pulmonary artery. No coronary artery calcifications. Chest wall and lower neck: No soft tissue masses. Upper abdomen: Hepatic steatosis. Gallstones are suspected without acute cholecystitis. No adrenal ma ss. Spleen is not enlarged. Osseous structures: No destructive process. CT/CT chest [facility] [id number] IMPRESSION: 1. Significant improvement in the areas of consolidation and pneumonia through out the RIGHT lung as described on 01/18/2022. 2. Residual bronchial wall thickening and subsegmental atelectasis beginning a t the RIGHT hilum extending into the RIGHT middle lobe. 3. Residual opacification RIGHT lower lobe measures 11 x 13 mm. 4. 7 mm subtle nodule LEFT upper lobe. 5. Fullness at the RIGHT hilum cannot be further evaluated without IV contrast . Lymph nodes were noted on the prior study in this location. Fullness is proba ni due to combination of residual hilar lymph nodes and the atelectasis in the RIGHT middle lobe beginning at the hilum. 6. Recommend [address] follow-up with IV contrast. 7. Cholelithiasis.
== END 2022-08-17 06:09 | disposition home or self-care (01) ==
PROVIDERS: PCP Physician Assistant; Visit Provider Student in an Organized Health Care Education/Training Program
DX: B39.9 Histoplasmosis, unspecified (principal); K80.20 Calculus of gallbladder without cholecystitis without obstruction; R91.1 Solitary pulmonary nodule; J98.11 Atelectasis; J18.9 Pneumonia, unspecified organism
CPT/HCPCS: 71250

== ENCOUNTER 2022-11-03 18:11 | Emergency (ER) | payer OTHER, MEDICAID, SELFPAY ==
[2022-11-03 18:17] VITALS: BP 146/90; PULSE 91; RESP 16; TEMP 36.8; O2SAT 96
--- NOTE | 2022-11-03 18:20 | ECG_ITS ---
[facility] Test Date: 2022-11-03 Pat Name: Bibiana Tan Department: Room: Gender: Female Student Services Representative: : 1990 Requested By: Leoncio Christensen Order Number: [id number] Teo MD: Héctor Bailey M.D. Measurements Intervals [place] Rate: 94 P: 24 WI: 153 QRS: -18 QRSD: 81 T: 5 QT: 342 QTc: 428 Interpretive Statements SINUS RHYTHM LOW QRS VOLTAGE IN PRECORDIAL LEADS [QRS DEFLECTION < 1.0 mV IN CHEST LEADS] PATTERN CONSISTENT WITH PULMONARY DISEASE VOLTAGE CRITERIA FOR LVH [MEETS CRITERIA IN ONE OF: R(aVL), S(V1), R(V5), R(V5/V6)+S(V1)] No previous ECG available for comparison Electronically Signed On 11-04-2022 10:25:07 CDT by Héctor Bailey M.D. [email or web address]
--- NOTE | 2022-11-03 18:32 | ED_ITS ---
HPI - Chest Pain General: Chief Complaint: Chest Pain Stated Complaint: chest discomfert, SOB Time Seen by Provider: 11/03/22 18:32 History of Present Illness: Ms. Tan is a 32-year-old lady with significant past medical history of pulmonary histoplasmosis presented to the emergency department for chest discomfort and abnormal heart rate. She notes onset of symptoms 2 nights ago while at rest with an episode of racing heart that persisted for a number of hours. Mild associated shortness of breath. Subsequently she has developed intermittent episodes of palpitations associated with substernal chest discomfort with radiation right shoulder. She has had chronic cough for 2 months which is not worse or nonproductive, no other URI or infectious symptoms. At times she has been nauseous but no vomiting. No other specific changes in health, exacerbating, or alleviating factors identified. Onset (ago): day(s) Timing of current episode: constant Prior episodes: Yes Onset: during rest Pain location: substernal Pain radiation: right shoulder Severity: moderate Quality: aching and heaviness Relieving factors: nothing Exacerbating factors: nothing Associated symptoms: Reports nausea, palpitations and other Review of Systems General: Reports: 10 or more systems reviewed and unremarkable except in HPI and below Card: Reports: palpitations GI: Reports: nausea PFSH ED PFSH: Medical History Allergy to multiple antibiotics RAYNE positive Failure of outpatient treatment Palpitation Pneumonia Tachycardia Family History Mother Diabetes pre-stage Arthritis Denies family history of Colon cancer Ovarian cancer Clotting disorder Heart disease Hyperlipidemia Breast cancer Suicide Bleeding disorder Hypertension Uterine cancer Stroke Social History Smoking and tobacco status: never smoked Alcohol intake: current Alcohol intake frequency: few times a week Alcohol type: wine and hard liquor Substance/Drug Use: never Lives independently: Yes Household members: spouse and children Marital status: Physical Exam Const: COMMON NORMALS: alert GENERAL APPEARANCE: cooperative and well developed HENMT: COMMON NORMALS: normocephalic and atraumatic HEAD & SCALP: normocephalic and atraumatic Eye: COMMON NORMALS: conjunctivae normal CONJUNCTIVA: Yes conjunctivae normal SCLERA: sclerae normal Neck/C-Spine: COMMON NORMALS: supple GENERAL: Yes trachea midline Resp: COMMON NORMALS: clear to auscultation bilaterally EFFORT & INSPECTION: Yes able to speak in complete sentences AUSCULTATION: clear to auscultation bilaterally Cardio: COMMON NORMALS: regular rate and regular rhythm RATE: regular rate RHYTHM: regular rhythm GI: COMMON NORMALS: Soft to palpation PALPATION: Yes Soft to palpation and No Tenderness to palpation present (GI) Extremity: GENERAL: Yes normal exam except as noted and No edema Neuro: COMMON NORMALS: moves all extremities SENSORIUM/ORIENTATION: Yes alert and No Orientation impaired Psych: COMMON NORMALS: mental status grossly normal and Normal thought process present THOUGHT PROCESS: Normal thought process present Course Vital Signs: Vital signs: Vital Signs Temperature 98.2 F 11/03/22 18:17 Pulse Rate 97 11/03/22 20:55 Respiratory Rate 13 11/03/22 20:30 Blood Pressure 124/97 11/03/22 20:55 Pulse Oximetry 96 11/03/22 20:55 Oxygen Delivery Me thod Room Air 11/03/22 18:17 MDM - Chest Pain Medical Decision Making 32-year-old lady with complex history including pulmonary histoplasmosis and related complications presenting to the emergency department for chest discomfort and shortness of breath. EKG demonstrates sinus rhythm with borderline left axis deviation, normal intervals, no STEMI. Labs notable for minimal leukocytosis and hemoconcentration, normal hemoglobin and platelet count. Metabolic panel without acute electrolyte derangement. D- dimer is negative. Negative troponin with greater than 6 hours of symptoms. Chest x-ray negative for infiltrate or pneumothorax. Patient feels improved with Toradol. Patient is high risk for atypical infection given pulmonary history and will be treated. The results of ED evaluation were discussed with the patient including prescriptions and/or symptomatic cares (if applicable) including appropriate and responsible use, followup plan, and return precautions. The patient verbalized understanding and felt safe for discharge. Medical Records I reviewed the patient's medical records. Lab Data I reviewed the patient's lab results. 11/03/22 18:50 11/03/22 18:50 Radiology Impressions Chest X-Ray 11/03/22 18:42 IMPRESSION: No acute findings. Laboratory Results WBC 10.3 10^3/uL (4.0-10.0) H 11/03/22 18:50 RBC 5.33 10^6/uL (4.1-5.3) H 11/03/22 18:50 Hgb 14.5 g/dL (11.5-15.3) 11/03/22 18:50 Hct 45.2 % (37.0-47.0) 11/03/22 18:50 MCV 84.8 fl (81-99) 11/03/22 18:50 MCH 27.2 pg (28.0-34.0) L 11/03/22 18:50 MCHC 32.1 g/dL (30.0-36.0) 11/03/22 18:50 RDW 13.2 % (12.1-15.1) 11/03/22 18:50 Plt Count 280 10^3/cmm (130-400) 11/03/22 18:50 MPV 10.2 fL (7.4-10.4) 11/03/22 18:50 Neut % (Auto) 56.2 % 11/03/22 18:50 Lymph % (Auto) 34.5 % 11/03/22 18:50 [place] % (Auto) 7.4 % 11/03/22 18:50 Eos % (Auto) 1.2 % 11/03/22 18:50 Baso % (Auto) 0.4 % 11/03/22 18:50 Neut # (Auto) 5.77 10^3/uL (1.8-7.7) 11/03/22 18:50 Lymph # (Auto) 3.5 10^3/uL (0.8-4.8) 11/03/22 18:50 [place] # (Auto) 0.8 10^3/uL (0.2-0.9) 11/03/22 18:50 Eos # (Auto) 0.1 10^3/uL (0.0-0.8) 11/03/22 18:50 Baso # (Auto) 0.0 10^3/uL (0.0-0.1) 11/03/22 18:50 Nucleated RBC % (auto) 0 % 11/03/22 18:50 Nucleated RBCs # 0.0 /100WBC 11/03/22 18:50 D-Dimer 0.30 ug/mIFEU (0-0.59) 11/03/22 18:50 Sodium 138 mmol/L (136-145) 11/03/22 18:50 Potassium 3.9 mmol/L (3.5-5.1) 11/03/22 18:50 Chloride 103 mmol/L (98-107) 11/03/22 18:50 Carbon Dioxide 24 mmol/L (22-29) 11/03/22 18:50 Anion Gap 14.9 (5-19) 11/03/22 18:50 BUN 10 mg/dL (6-20) 11/03/22 18:50 Creatinine 0.5 mg/dL (0.5-0.9) 11/03/22 18:50 GFR Calculation 141.2 mL/min (90-130) H 11/03/22 18:50 Glucose 78 mg/dL (65-115) 11/03/22 18:50 Calculated Osmolality 284 mOsm/kg (285-295) L 11/03/22 18:50 Calcium 8.8 mg/dL (8.5-10.5) 11/03/22 18:50 Magnesium 2.1 mg/dL (1.7-2.3) 11/03/22 18:50 Total Bilirubin 0.3 mg/dL (0.15-1.2) 11/03/22 18:50 AST 25 U/L (0-32) 11/03/22 18:50 ALT 35 U/L (0-33) H 11/03/22 18:50 Alkaline Phosphatase 81 U/L (35-105) 11/03/22 18:50 Troponin T Baseline 6 ng/L (0-10) 11/03/22 18:50 NT-Pro-B Natriuret Pep 36 pg/mL (0-125) 11/03/22 18:50 Total Protein 7.8 g/dL (6.6-8.7) 11/03/22 18:50 Albumin 4.6 g/dL (3.5-5.2) 11/03/22 18:50 Globulin 3.2 g/dL (1.3-4.6) 11/03/22 18:50 Lipase 18 U/L (13-60) 11/03/22 18:50 TSH 1.18 uIU/mL (0.27-4.20) 11/03/22 18:50 Discharge Plan Discharge Patient Disposition: Home Clinical Impression: Heart palpitations, Chest discomfort, Light-headedness Condition: Stable Prescriptions: New azithromycin 250 mg tablet See Rx Instructions .ROUTE .COMPLEX Qty: 6 0RF Rx Instructions: For 250 mg dose pack: take 500 mg today (day 1), then 250 mg for 4 days (days 2-5) No Action miscellaneous medical supply Misc 1 ea miscellaneous .prn Qty: 1 0RF Rx Instructions: knee immobilizer Advil 200 mg Tablet 600 mg PO Q6H PRN (Reason: Pain) albuterol sulfate 90 mcg/actuation HFA aerosol inhaler 2 puff INHALATION QID PRN (Reason: Shortness Of Breath) Excedrin Migraine 250-250-65 mg Tablet 2 tab PO Q6H PRN (Reason: Migraine Headache) Discharge Orders: Discharge ED (Routine); Ordered 11/03/22 Ordered By: Kameron France Referrals: Heidi Spangler PA [Primary Care Provider] - Discharge Diet: Usual diet Discharge Activity: Increase activity as tolerated Patient Instructions: Chest Pain (ED), Heart Palpitations (ED), Lightheadedness (ED) Activity Restrictions/Additional Instructions: Thank you for visiting the emergency department. You were seen and evaluated for shortness of breath, chest discomfort, palpitations, lightheadedness. The exact cause of your symptoms is unclear however does not appear to need hospitalization at this time. Given pulmonary history you may have underlying lung disease and this will be treated with azithromycin. Additionally I will discuss with infectious disease for further recommendations. You may try Xopenex instead of albuterol as this sometimes causes less tachyca rdia. Please follow-up with your primary care provider. Return to the emergency department for worsening symptoms or anything else that you are concerned about and feel needs emergency department evaluation. Stand Alone Forms: Work/School Release Coding Level of Care Code ED Patient Account Representative for Maxine Mcgee
--- NOTE | 2022-11-03 18:42 | XRR_ITS ---
PROCEDURE INFORMATION: Exam: XR Chest Exam date and time: 11/03/2022 6:58 PM Age: 32 years old Clinical indication: Pain; Chest pressure; Additional info: Cp, tachycardia TECHNIQUE: Imaging protocol: Radiologic exam of the chest. Views: 1 view. COMPARISON: CT chest con [id number] 08/17/2022 6:37 AM FINDINGS: Lungs: Unremarkable. No consolidation. Pleural spaces: Unremarkable. No pleural effusion. No pneumothorax. Heart/Mediastinum: Unremarkable. No cardiomegaly. Bones/joints: Unremarkable. XR/XR chest 1V portable [id number] IMPRESSION: No acute findings.
[2022-11-03 19:00] VITALS: BP 128/93; PULSE 91; RESP 16; O2SAT 97
[2022-11-03 19:02] LABS: Basophils % 0.4 %; Eosinophils # 0.1 10^3/uL (0.0-0.8); Eosinophils % 1.2 %; Hematocrit 45.2 % (37.0-47.0); Hemoglobin 14.5 g/dL (11.5-15.3); Lymphocytes # 3.5 10^3/uL (0.8-4.8); Lymphocytes % 34.5 %; Mean Corpuscular HGB Conc 32.1 g/dL (30.0-36.0); Mean Corpuscular Hemoglobin 27.2 pg (28.0-34.0); Mean Corpuscular Volume 84.8 fl (81-99); Mean Platelet Volume 10.2 fL (7.4-10.4); Monocytes # 0.8 10^3/uL (0.2-0.9); Monocytes % 7.4 %; Neutrophils # 5.77 10^3/uL (1.8-7.7); Neutrophils % 56.2 %; Nucleated Red Blood Cells % 0 %; Platelet Count 280 10^3/cmm (130-400); Red Blood Count 5.33 10^6/uL (4.1-5.3); Red Cell Distribution Width 13.2 % (12.1-15.1); White Blood Count 10.3 10^3/uL (4.0-10.0)
[2022-11-03 19:39] LABS: Troponin(5th) Baseline 6 ng/L (0-10)
[2022-11-03 19:49] LABS: Alanine Aminotransferase 35 U/L (0-33); Albumin Level 4.6 g/dL (3.5-5.2); Alkaline Phosphatase 81 U/L (35-105); Aspartate Amino Transferase 25 U/L (0-32); Blood Urea Nitrogen 10 mg/dL (6-20); Calcium 8.8 mg/dL (8.5-10.5); Carbon Dioxide 24 mmol/L (22-29); Chloride 103 mmol/L (98-107); Globulin 3.2 g/dL (1.3-4.6); Glomerular Filtration Rate 141.2 mL/min (90-130); Glucose 78 mg/dL (65-115); Lipase 18 U/L (13-60); Magnesium 2.1 mg/dL (1.7-2.3); NT Pro B Type Natriuretic Pept 36 pg/mL (0-125); Osmolality Calculated 284 mOsm/kg (285-295); Sodium 138 mmol/L (136-145); Thyroid Stimulating Hormone 1.18 uIU/mL (0.27-4.20); Total Bilirubin 0.3 mg/dL (0.15-1.2); Total Protein 7.8 g/dL (6.6-8.7)
[2022-11-03 19:53] LABS: Anion Gap 14.9 (5-19); Potassium 3.9 mmol/L (3.5-5.1)
[2022-11-03 19:56] VITALS: PULSE 93; RESP 18; O2SAT 97
[2022-11-03 20:00] VITALS: PULSE 94; RESP 14; O2SAT 97
[2022-11-03 20:30] VITALS: PULSE 94; RESP 13; O2SAT 97
[2022-11-03 20:55] VITALS: BP 124/97; PULSE 97; O2SAT 96
== END 2022-11-03 20:56 | disposition home or self-care (01) ==
PROVIDERS: Emergency Provider Emergency Medicine; PCP Physician Assistant
DX: R07.89 Other chest pain (principal); R00.2 Palpitations; R42 Dizziness and giddiness
CPT/HCPCS: 71045; 80053; 83690; 83735; 83880; 84443; 84484; 85025; 85378; 93005; 99285

== ENCOUNTER → 2022-11-05 17:58 | Outpatient (BNVA) | payer OTHER, SELFPAY | PROVIDERS: PCP Physician Assistant; Visit Provider Emergency Medicine | DX: M23.91 Unspecified internal derangement of right knee (principal) | CPT/HCPCS: 73562 ==

== ENCOUNTER 2022-11-16 07:11 | Outpatient (CLI) | payer MEDICAID, SELFPAY ==
--- NOTE | 2022-11-16 07:20 | MR_ITS ---
WS: [id number] MRI RIGHT KNEE NONCONTRAST TECHNIQUE: Axial PD, coronal PD fat sat, coronal PD, sagittal PD, and sagittal PD fat-sat images obta ined. CLINICAL INFORMATION: BUCKET HANDLE TEAR OF MENISCUS,CURRENT INJURY R KNEE COMPARISON: None. FINDINGS: Distal quadriceps and patella tendons are intact. Tiny suprapatellar effusion. ACL and PCL appear int act. Normal bone marrow signal in the femoral condyles and tibial plateau. Small amount of prepatella r and infrapatellar soft tissue edema. Slightly hypertrophic patella. Moderate chondromalacia patella . Normal medial and lateral patellar retinaculum. Medial and lateral collateral ligaments are intact. Normal popliteus. Peripheral extrusion of the med ial meniscus. Narrowing of the medial joint compartment with complex bucket-handle type tear extendin g to the meniscal root. Displaced fragment extends into the posterior intercondylar notch deep to the PCL. Normal lateral meniscus. MR/MR knee RT wo con* [id number] IMPRESSION: 1. ACL and PCL appear intact. 2. Small suprapatellar effusion. 3. Medial and lateral collateral ligaments appear intact. 4. Bucket-handle type tear of the medial meniscus with displaced meniscal frag ment deep to the PCL. Narrowing of the medial joint compartment. 5. Normal lateral meniscus. 6. Moderate chondromalacia patella. Outbridge grading: grade II: blister-like swelling/fraying of articular cartila ge extending to surface
== END 2022-11-16 07:12 | disposition home or self-care (01) ==
LOC: RAD 07:12
PROVIDERS: PCP Physician Assistant; Visit Provider Nurse Practitioner Family
DX: S83.211A Bucket-handle tear of medial meniscus, current injury, right knee, initial encounter (principal); M22.41 Chondromalacia patellae, right knee; M25.461 Effusion, right knee; X58.XXXA Exposure to other specified factors, initial encounter; Y93.9 Activity, unspecified; Y92.9 Unspecified place or not applicable; Y99.9 Unspecified external cause status
CPT/HCPCS: 73721

== ENCOUNTER 2022-11-28 11:42 | Day surgery (SDC) | payer MEDICAID, SELFPAY ==
[2022-11-27 17:04] VITALS: BMI 35.5
[2022-11-28] VITALS (12 sets, daily range): BP systolic 106–143; BP diastolic 62–99; PULSE 87–97; RESP 16–18; TEMP 36.6–36.7; O2SAT 92–97
[2022-11-28] MEDS: ketorolac 30 mg/mL INJ IVP (12:26)
[2022-11-28] MEDS: scopolamine 1.5 Patch 1 PATCH TRANSDERMA (12:28)
[2022-11-28] MEDS: sodium chloride 0.9% 1,000 ML 30 ML IV (12:29)
[2022-11-28] MEDS: acetaminophen 1,000 MG/100 ML PIGGYBACK 400 MG IV (12:30)
--- NOTE | 2022-11-28 12:55 | W.PM.OPSFHP ---
Same Day Surgery H&P Indication for Procedure/HPI DATE OF PROCEDURE: November 28, 2022 CHIEF COMPLAINT/INDICATIONFOR SURGICAL PROCEDURE: Right knee medial meniscus tear bucket-handle Patient was initially seen evaluated worked up by my partner MRI findings consistent with a right knee medial meniscus bucket-handle tear. This has been going on for several months however she did have a more recent incident where she bent down to grab a chicken and felt her knee lock. She had an MRI and worked up by my partner. Unfortunately my partner is no longer with the practice and this patient was inherited by me. I reviewed the MRI as well as the patient's history and physical examination I agree with his findings at this point time given her young age would like to strive for meniscal preservation if at all possible. We talked about her treatment options for his nonoperative and operative intervention. Through shared decision-making she agreed to proceed with surgical intervention of her right knee diagnostic and surgical arthroscopy with possible partial medial meniscectomy versus meniscal repair. Patient understands the risk benefits complication alternatives with surgery. Risk of surgery include not limited to make a better make it worse injury to nerves vessels or tendons, arthrofibrosis, persistent pain, possible retear, infection. Understanding risk of surgery she agrees to proceed with surgical intervention. All questions answered. PREOP DIAGNOSIS: Right knee medial meniscus tear PLANNED PROCEDURE: Operation Date: 11/28/22 13:25 Proposed Procedures p right knee arthroscopy with meniscectomy vs repair/ 2988, S83.211A(Right) - Rell Hou, Medications/Allergies* Home Medications Medication Instructions Recorded Confirmed Type ibuprofen 200 mg tablet (Advil) 600 mg PO Q6H PRN Pain 01/19/22 11/27/22 History Allergies/Adverse Reactions Allergy/AdvReac Type Severity Reaction Status Date / Time minocycline Allergy Severe severe Verified 11/27/22 17:07 hives, jiont swelling vancomycin Allergy Severe red man Verified 11/27/22 17:07 syndrome sulfamethoxazole Allergy Mild fine white Verified 11/27/22 17:07 [From Bactrim] rash/ itching trimethoprim [From Bactrim] Allergy Mild fine white Verified 11/27/22 17:07 rash/ itching amoxicillin Allergy hives Verified 11/27/22 17:07 Current Medications: Generic Name Dose Route Start Last Admin Trade Name Freq PRN Reason Stop Dose Admin Sodium Chloride 1,000 mls @ 30 mls/hr 11/28/22 11:45 11/28/22 12:29 Sodium Chloride 0.9% IV 11/29/22 11:44 30 mls/hr .Q24H TONY Administration Scopolamine 1 patch 11/28/22 11:45 11/28/22 12:28 Scopolamine 1.5 Patch TRANSDERMA 1 patch ONCE PRN Administration anesthetic related nausea Pertinent History/Comorbid Conditions* Medical History (Updated 11/11/22 @ 00:01 by CAYLA Lazo) Allergy to multiple antibiotics RAYNE positive Failure of outpatient treatment Palpitation Pneumonia Tachycardia Family History (Updated 12/15/21 @ 09:01 by Rosa Glaser RN) Diabetes Mother pre-stage Arthritis Mother Denies family history of Colon cancer Ovarian cancer Clotting disorder Heart disease Hyperlipidemia Breast cancer Suicide Bleeding disorder Hypertension Uterine cancer Stroke Social History Smoking and tobacco status: never smoked Alcohol intake: current Alcohol intake frequency: few times a week Alcohol type: wine and hard liquor Substance/Drug Use: never Lives independently: Yes Household members: spouse and children Marital status: Pertinent Exam Findings alert, oriented x 3, operative site marked and procedure specific exam findings Right knee examination mild joint effusion noted. Patient is able to perform full extension however she does have guarding past 110 degrees of flexion. Medial joint line tenderness to palpation positive Arslan's medially. Stable varus valgus stress, negative Becca's. Patient is able to wiggle toes plantarflex and dorsiflex ankle sensations intact light touch distally. Recommendations Surgery/Procedure today Other Plans: Understands the risk benefits complication alternatives with surgery and elects proceed with surgical intervention of the right knee diagnostic and surgical arthroscopy with partial medial meniscectomy versus meniscal repair. All questions answered. We will proceed with surgery today. Coding Level of Care Code Acute Code for Chg Fwd Diagnoses
--- NOTE | 2022-11-28 12:58 | P.ANESASSM_ITS ---
Pre-Anesthetic Assessment Height/Weight: Height 1.68 m Weight 99.79 kg Temp Pulse Resp BP Pulse Ox O2 Del Method 98.1 F 91 18 143/99 97 Room Air 11/28/22 12:04 11/28/22 12:04 11/28/22 12:04 11/28/22 12:28 11/28/22 12:04 11/28/22 12:10 Preop Diagnosis: Right knee medial meniscus tear Operation Date: 11/28/22 13:25 Proposed Procedures p right knee arthroscopy with meniscectomy vs repair/ 2988, S83.211A(Right) - Rell Unicoi, Familial anesthetic complications: None Was Beta Sylvia taken within 24 hours: N/A Was Clonidine taken within 24 hours: N/A Last intake: Intake Last Liquid Date 11/27/22 Last Liquid Time 11:36 Last Solid Date 11/27/22 Last Solid Time 20:00 Social No alcohol and No tobacco Exam alert, oriented x 3, clear to auscultation bilaterally and regular rate & rhythm Airway Submandibular: within normal limits Cervical ROM: within normal limits Mallampati: Class II Dentition: full History/ROS No significant history except as noted Pulmonary Cough (Chronic) History of pulmonary histoplasmosis CV/HEM Hypertension None reported Hepatic None reported GI None reported Metabolic Morbid Obesity Musc/skel None reported Neuropsych Anxiety and Headache (Migraines) Anesthetic Plan ASA status: 2 Anesthesia: Anesthesia Evaluation and General Risk of > 500 ml blood loss (7ml/kg in children): No Medications/Allergies Home Medications Medication Instructions Recorded Confirmed Last Taken Type ibuprofen 200 mg tablet (Advil) 600 mg PO Q6H PRN Pain 01/19/22 11/27/22 2 Days Ago History ~11/25/22 miscellaneous medical supply 1 ea miscellaneous .prn #1 ea 11/05/22 11/24/22 Unknown Rx Allergies Allergy/AdvReac Type Severity Reaction Status Date / Time minocycline Allergy Severe severe Verified 11/27/22 17:07 hives, jiont swelling vancomycin Allergy Severe red man Verified 11/27/22 17:07 syndrome sulfamethoxazole Allergy Mild fine white Verified 11/27/22 17:07 [From Bactrim] rash/ itching trimethoprim [From Bactrim] Allergy Mild fine white Verified 11/27/22 17:07 rash/ itching amoxicillin Allergy hives Verified 11/27/22 17:07 Current Medications Generic Name Dose Route Start Last Admin Trade Name Freq PRN Reason Stop Dose Admin Sodium Chloride 1,000 mls @ 30 mls/hr 11/28/22 11:45 11/28/22 12:29 Sodium Chloride 0.9% IV 11/29/22 11:44 30 mls/hr .Q24H TONY Administration Scopolamine 1 patch 11/28/22 11:45 11/28/22 12:28 Scopolamine 1.5 Patch TRANSDERMA 1 patch ONCE PRN Administration anesthetic related nausea PFSH Anesthesia Medical History Allergy to multiple antibiotics RAYNE positive Failure of outpatient treatment Palpitation Pneumonia Tachycardia Family History Mother Diabetes pre-stage Arthritis Denies family history of Colon cancer Ovarian cancer Clotting disorder Heart disease Hyperlipidemia Breast cancer Suicide Bleeding disorder Hypertension Uterine cancer Stroke Social History Smoking and tobacco status: never smoked Alcohol intake: current Alcohol intake frequency: few times a week Alcohol type: wine and hard liquor Substance/Drug Use: never Lives independently: Yes Household members: spouse and children Marital status: Data Anesthesia Cardiac Studies: No Data to Display
[2022-11-28] MEDS: clindamycin 600 MG/50 ML PREMIX 100 MG IV (13:12)
[2022-11-28] MEDS: clindamycin 300 MG/50 ML PREMIX 100 MG IV (13:13)
[2022-11-28] MEDS: lidocaine-epi 2% 20 mL INJ INJECTION (13:47)
[2022-11-28] MEDS: HYDROmorphone 1 mg/mL INJ 1 mL 0.5 MG IVP (16:04)
[2022-11-28] MEDS: ondansetron 2 mg/ML SDV 2 mL 4 MG IVP (16:09)
--- NOTE | 2022-11-28 16:25 | PM.OP2 ---
Brief Operative Note Date of procedure: 11/28/22 Pre-op diagnosis: Right knee medial meniscus bucket-handle tear Post-op diagnosis: same (Right knee synovitis) Procedure Done: Right knee diagnostic and surgical arthroscopy with all inside medial meniscus bucket-handle repair Right knee diagnostic and surgical arthroscopy with limited synovectomy Surgeon: Rell Hou Estimated blood loss (mL): 2 Complications: None Post-op Plan: Patient taken to PACU in stable condition. Patient recovering well. Patient will receive appropriate discharge instructions as well as pain medication postoperatively. Placed in a [place] hinged knee brace and locked in full extension. To be toe-touch weightbearing. Utilize crutches. Meniscal repair postoperative protocol. We will follow-up in the orthopedic office in 2 weeks. Given appropriate dressing changes. Patient given aspirin for blood clot prevention. Condition: stable Disposition: same day Coding Level of Care Code Acute Code for Maxine Mcgee
--- NOTE | 2022-11-28 16:25 | PM.PACU ---
PACU note Narrative: Patient is taken to PACU in stable condition recovering well. Pain controlled. Dressings on in place clean dry and intact distal pulses are palpable toes warm well perfused. Right knee examination limited secondary to dressing. Patient is able to wiggle toes plantarflex and dorsiflex ankle. Sensations intact light touch distally. Exam: awake Disposition: discharged
--- NOTE | 2022-11-28 16:25 | PM.OP ---
Operative Report Date of procedure: November 28, 2022 Pre-op diagnosis: Preop Diagnosis Right knee medial meniscus tear Procedure: Post-op diagnosis: Right knee medial meniscus tear bucket handle Right knee synovitis Procedure done: Right knee diagnostic and surgical arthroscopy with medial meniscus repair (all inside and outside in repair) Right knee diagnostic and surgical arthroscopy with limited synovectomy Surgeon: Rell Hou DO Estimated blood loss: 2 Tourniquet: None IV fluids: See anesthesia record Complications: None Findings: See operative report narrative Condition: stable Disposition: same day Brief History: Patient been worked up in the outpatient setting and findings consistent with preoperative diagnosis.? Pt had an MRI.? Given her meniscal injury failure to improve with conservative approach as well as concern for preservation of the meniscus we talked about nonoperative and operative intervention given her meniscal tear and age and healthy cartilage would recommend meniscal preservation with a right knee diagnostic and surgical arthroscopy with medial meniscus repair vs partial menisectomy. Patient understand the ins and outs of the procedure the risk benefits complication alternatives to treatment options.? Understanding risk of surgery they agree to proceed with surgical intervention.? ? Understanding this and they agree to proceed with surgical intervention all questions answered. MR/MR knee RT wo con* [id number] IMPRESSION: ? 1.? ACL and PCL appear intact. 2.? Small suprapatellar effusion. 3.? Medial and lateral collateral ligaments appear intact. 4.? Bucket-handle type tear of the medial meniscus with displaced meniscal fragment deep to the PCL. Narrowing of the medial joint compartment. 5.? Normal lateral meniscus. 6.? Moderate chondromalacia patella. ? Outbridge grading: grade II: blister-like swelling/fraying of articular cartilage extending to surface ? ? ? Procedure: Patient seen and evaluated in the preoperative holding area.? Consent was reviewed and signed with patient.? Correct extremity was then marked.? Patient seen evaluated Anesthesia Department once cleared for surgery patient was taken back to the operative suite.? Patient was transported onto the OR table in supine position.? All bony prominences well-padded patient was appropriate secured to the bed.? Once appropriately anesthetized a nonsterile tourniquet was applied to the right thigh.? The right lower extremity was then prepped and draped in standard orthopedic fashion.? Final timeout performed.? Patient received appropriate preoperative antibiotics. Patient received local anesthetic of lidocaine with epinephrine into the joint as well as around the portal sites.??Esmarch tourniquet was used exsanguinate the right lower extremity and tourniquet was insufflated to 250 mmHg. A standard 2 portal vertical incision diagnostic and surgical arthroscopy of the right knee was performed in standard fashion.? Small stab incision made in the inferolateral portal introduced trocar and arthroscope into the suprapatellar pouch.? Suprapatellar pouch was subsequently visualized and found to have significant synovitis but no loose bodies.? Patient had noticeable significant inflamed infrapatellar fat pad. ?The medial gutter was free of loose bodies I then introduced the arthroscope into the medial compartment.? Within the medial compartment I then established my inferior medial working portal utilizing spinal needle outside in technique.? Once established I then visualized our articular cartilage of the medial compartment with a valgus stress.? Patient was found to have grade 1 chondromalacia throughout the medial compartment.? Articular cartilage was found to be intact with no defects.? Next I inspected the meniscus.? Patient had a large bucket-handle meniscus tear. Bucket-handle attached anteriorly was more in the white white to white-red zone junction posteriorly this did track into the white-red zone. Given patient's young age pristine cartilage as well as my preoperative discussion with patient to try and salvage meniscus is much as possible I felt as though this would be appropriate to give this patient a chance to heal this bucket-handle meniscus tear utilizing posteriorly and all inside technique and around the periphery utilizing an outside in technique. Arthroscopic probe was utilized to visual? all aspects of the meniscus.? Meniscal root was found to be intact.? I proceeded with the rest of the diagnostic portion of the arthroscopy and then was going to finish with the meniscal repair. Next a introduced the arthroscope to the intercondylar notch.? PCL and ACL were intact.? I then performed an limited synovectomy with the arthroscopic shaver of the patellofemoral and intercondylar notch. Advance the scope into the retrocruciate space and no loose bodies were found. Next I introduced the arthroscope into the lateral compartment the lateral compartment was found to have grade?0 chondromalacia.??Arthroscopic probe was utilized to evaluate the lateral meniscus this was pristine and intact with no evidence of tearing. Meniscal root was intact. Next of the arthroscope was placed into the lateral gutter and this was free of loose bodies.? Finally I reintroduced the arthroscope into the patellofemoral compartment.? The patellofemoral was found to have grade 0 chondromalacia.??At this point I utilized arthroscopic shaver as well as thermal wand to perform finalize my limited synovectomy of the patellofemoral and intercondylar notch.? Once again visualized the articular surface of the patella and trochlea and was found to be grade 0 chondromalacia and pristine with no injury.? Patella was found to have excellent tracking.? I then switch my portal sites to the medial working portal.? And the rest of my examination was normal. I then turned my attention back towards the medial compartment. In order to have appropriate trajectory for my initial all inside repair technique I switched portals visualizing the medial and passing my plan stitches from the lateral portal. I utilized an 18-gauge spinal needle to fenestrate the MCL to open up the medial joint space to accommodate for less chondral injury during my repair. Once I had excellent visualization I utilized the arthroscopic shaver to debride the edges of the meniscus to stimulate bleeding and healing from my repair. Once I had excellent visualization I then utilized the arthroscopic probe to reduce the bucket-handle meniscus tear. At this point in time at the body to posterior horn junction I then subsequently passed an Arthrex fiber stitch utilizing all inside technique. I subsequently pierced the bucket-handle tear and then in attempted to perform this in a horizontal mattress fashion this did not have appropriate security and the meniscus still had some instability in the corner and as a result I removed the stitch and plan to perform vertical mattress stitches in a hay bale fashion as this seemed to appropriately lay down the meniscus as best as possible otherwise the meniscus would bunched up in its repair. As result I planned on utilizing a bale stitch throughout the posterior to anterior portion. As result I then placed sequentially 3 fiber stitches in vertical fashion performing a tibial stitch starting at the posterior horn to the posterior horn body junction all the way to the body junction these were spaced out roughly 1 cm each and had excellent fixation. Once I was satisfied with the posterior horn and body repair I finalize my repair of the anterior horn. Once again this did taper into the more the white white zone however I felt appropriate with my discussion with this patient of trying to salvage this meniscus. I then utilized a spinal needle and PDS suture spinal needle was then passed just above the meniscus and shuttled the PDS suture into the joint and then utilizing a BirdBeak grasper I then penetrated the capsule inferiorly to the meniscus and grabbed the PDS suture and once again hay bale fashion and then utilizing an arthroscopic knot pusher subsequently tied and secured the PDS suture. This was performed at the body to anterior horn junction first. [place] as though there would be improvement in fixation with 1 more stitch at the anterior horn and then subsequently in standard sequential repeat fashion shuttled the PDS suture through the spinal needle superiorly grabbed it with the BirdBeak inferiorly and again a bale stitch then tied utilizing arthroscopic knot pusher and tied this over the capsule anteriorly. This had excellent fixation. I then switched my camera into the lateral viewing portal introduced the arthroscopic probe and then subsequently attempted to stress my repair and the meniscus bucket-handle repair stayed in excellent position and had appropriate opposition. This completed patient's diagnostic and surgical arthroscopy.? All fluid was suctioned from the joint.? Once again hemostasis was satisfactory.? All instruments were withdrawn.? Portal sites were closed with interrupted nylon suture.?? portal sites were then covered with with Xeroform 4 x 4's ABD Curlex and [place] wrap.? Patient was then subsequently awakened from anesthesia and taken to PACU in stable condition. Disposition: Patient taken to PACU in stable condition recovering well.? Will receive appropriate discharge structure as well as pain medication postoperatively as well as daily aspirin for DVT prophylaxis.? We will have patient follow-up with us in the office in 2 weeks.? We will Toe touch WB to the right lower extremity.? Patient placed into a brace locked in extension until followup. ? We will work with PT/OT for meniscal repair protocol.? Patient and parent understands and agrees with current plan.? All questions answered.
[2022-11-28] MEDS: oxyCODONE 5 mg IR Tab/Cap PO (16:33)
--- NOTE | 2022-11-28 16:40 | ANE.PACU2 ---
Inpatient post-anesthesia follow up: Airway intact: Yes Vital signs: Temperature 98 F Pulse Rate 97 Respiratory Rate 16 Blood Pressure 130/74 Pulse Oximetry 94 Oxygen Delivery Me thod Room Air Oxygen Flow Rate Fraction of Inspir ed Oxygen Hydration adequate: Yes Nausea and vomiting: Yes Pain level: 1 Mental status: Baseline
== END 2022-11-28 17:10 | disposition home or self-care (01) ==
PROVIDERS: PCP Physician Assistant; Visit Provider Student in an Organized Health Care Education/Training Program
PROC: (CPT 29870; principal; 2022-11-28 13:15)
DX: S83.211A Bucket-handle tear of medial meniscus, current injury, right knee, initial encounter (principal); X58.XXXA Exposure to other specified factors, initial encounter; I10 Essential (primary) hypertension; E66.01 Morbid (severe) obesity due to excess calories; Z68.35 Body mass index [BMI] 35.0-35.9, adult
CPT/HCPCS: 29882; C1713; J0131; J1100; J1170; J1200; J1885; J2250; J2405; J2704; J3010; J3490; J7030; L1832

== ENCOUNTER 2022-12-14 13:16 | Outpatient (RCR) | payer SELFPAY | END 2023-01-01 23:59 | disposition home or self-care (01) | LOC: SPT 13:16 | PROVIDERS: PCP Physician Assistant; Visit Provider Student in an Organized Health Care Education/Training Program | DX: Z47.89 Encounter for other orthopedic aftercare (principal) | CPT/HCPCS: 97110; 97161 ==

== ENCOUNTER 2023-01-02 06:00 | Outpatient (RCR) | payer SELFPAY | END 2023-02-01 23:59 | disposition home or self-care (01) | LOC: SPT 06:00 | PROVIDERS: PCP Physician Assistant; Visit Provider Student in an Organized Health Care Education/Training Program | DX: Z47.89 Encounter for other orthopedic aftercare (principal) | CPT/HCPCS: 97110 ==

== ENCOUNTER 2023-02-02 06:00 | Outpatient (RCR) | payer OTHER, BC, MEDICAID, SELFPAY | END 2023-03-03 23:59 | disposition home or self-care (01) | LOC: SPT 06:00 | PROVIDERS: PCP Physician Assistant; Visit Provider Student in an Organized Health Care Education/Training Program | DX: Z47.89 Encounter for other orthopedic aftercare (principal) | CPT/HCPCS: 97110 ==

== ENCOUNTER → 2023-03-08 14:45 | Outpatient (BNVA) | payer BC, MEDICAID, SELFPAY | PROVIDERS: PCP Physician Assistant; Visit Provider Student in an Organized Health Care Education/Training Program | DX: Z98.890 Other specified postprocedural states (principal); M24.661 Ankylosis, right knee | CPT/HCPCS: 73560; 73565 ==

== ENCOUNTER 2023-03-12 05:57 | Day surgery (SDC) | payer BC, MEDICAID, SELFPAY ==
[2023-03-12] VITALS (11 sets, daily range): BP systolic 109–156; BP diastolic 59–96; PULSE 73–87; RESP 16–20; TEMP 36.1–36.4; O2SAT 91–100; BMI 37.1
[2023-03-12] MEDS: sodium chloride 0.9% 1,000 ML 30 ML IV (06:19)
[2023-03-12] MEDS: acetaminophen 1,000 MG/100 ML PIGGYBACK 400 MG IV (06:23)
[2023-03-12] MEDS: scopolamine 1.5 Patch 1 PATCH TRANSDERMA (06:24)
[2023-03-12] MEDS: ketorolac 30 mg/mL INJ IVP (06:26)
--- NOTE | 2023-03-12 07:01 | W.PM.OPSUD ---
Surgery/Procedure H&P Update DATE OF PROCEDURE: March 12, 2023 DATE H&P PERFORMED: 03/08/23 H&P UPDATE INFORMATION: I have reviewed H&P completed within last 30 days, I have examined patient prior to procedure and No changes to prior documentation PREOP DIAGNOSIS: Right knee arthrofibrosis PRIMARY INDICATION FOR PROCEDURE: Right knee arthrofibrosis PLANNED PROCEDURE: Operation Date: 03/12/23 07:35 Proposed Procedures p diagnostic and surgical arthroscopy with lysis of adhesions and manipulation under anesthesia(Right) - Rell Hou DO
[2023-03-12] MEDS: ceFAZolin 2,000 MG in sodium chloride 0.9% (plus) 50 ML 100 MG IV (07:58)
[2023-03-12] MEDS: lidocaine-epi 2% 20 mL INJ 40 ML INJECTION (08:25)
--- NOTE | 2023-03-12 08:44 | ANES.PREANE2 ---
Pre-Anesthetic Assessment Height/Weight: Height 1.68 m Weight 104.326 kg Temp Pulse Resp BP Pulse Ox O2 Del Method 97 F L 87 18 156/96 98 Room Air 03/12/23 06:10 03/12/23 06:10 03/12/23 06:10 03/12/23 06:24 03/12/23 06:10 03/12/23 06:13 Preop Diagnosis: Right knee arthrofibrosis Operation Date: 03/12/23 07:35 Proposed Procedures p diagnostic and surgical arthroscopy with lysis of adhesions and manipulation under anesthesia(Right) - DO Nadine Parikh anesthetic complications: PONV Was Beta Sylvia taken within 24 hours: N/A Was Clonidine taken within 24 hours: N/A Last intake: Intake Last Liquid Date 03/11/23 Last Liquid Time 21:30 Last Solid Date 03/11/23 Last Solid Time 14:20 Social No alcohol and No tobacco Exam alert, oriented x 3, clear to auscultation bilaterally and regular rate & rhythm Airway Submandibular: within normal limits Cervical ROM: within normal limits Mallampati: Class II Dentition: full Metabolic Morbid Obesity Anesthetic Plan ASA status: 2 Anesthesia: General and Regional (specify below) (Right adductor blk) Medications/Allergies Home Medications Medication Instructions Recorded Confirmed Last Taken Type ibuprofen 200 mg tablet (Advil) 600 mg PO Q6H PRN Pain 01/19/22 03/09/23 03/10/23 History aspirin 81 mg tablet,delayed 81 mg PO DAILY 2 weeks #14 tabs 03/12/23 Unknown Rx release hydrocodone 5 mg-acetaminophen 325 1 tab PO Q6H PRN pain 5 days #20 03/12/23 Unknown Rx mg tablet tabs ondansetron 4 mg disintegrating 4 mg PO Q8H PRN nausea and 03/12/23 Unknown Rx tablet vomiting 3 days #9 tabs Allergies Allergy/AdvReac Type Severity Reaction Status Date / Time minocycline Allergy Severe severe Verified 03/08/23 14:42 hives, jiont swelling vancomycin Allergy Severe red man Verified 03/08/23 14:42 syndrome sulfamethoxazole Allergy Mild fine white Verified 03/08/23 14:42 [From Bactrim] rash/ itching trimethoprim [From Bactrim] Allergy Mild fine white Verified 03/08/23 14:42 rash/ itching amoxicillin Allergy hives Verified 03/08/23 14:42 Current Medications Generic Name Dose Route Start Last Admin Trade Name Evan PRN Reason Stop Dose Admin Sodium Chloride 1,000 mls @ 30 mls/hr 03/12/23 06:15 03/12/23 06:19 Sodium Chloride 0.9% IV 03/13/23 06:14 30 mls/hr .Q24H TONY Administration PFSH Anesthesia Medical History Allergy to multiple antibiotics RAYNE positive Failure of outpatient treatment Palpitation Pneumonia Tachycardia Family History Mother Diabetes pre-stage Arthritis Denies family history of Colon cancer Ovarian cancer Clotting disorder Heart disease Hyperlipidemia Breast cancer Suicide Bleeding disorder Hypertension Uterine cancer Stroke Social History Smoking and tobacco status: never smoked Alcohol intake: current Alcohol intake frequency: few times a week Alcohol type: wine and hard liquor Substance/Drug Use: never Lives independently: Yes Household members: spouse and children Marital status: Data Anesthesia Cardiac Studies: Holter Monitor 11/14/22 Anesthesia Procedures Nerve Block Nerve Block 1: Main Anesthesia: general anesthesia Time Out Performed: Yes Consent: requested by attending/covering physician, from patient, risks and benefits reviewed and patient agrees to proceed Nerve block location: adductor canal (right) Anesthesia monitors applied: pulse oximetry, EKG, BP cuff and oxygen Nerve block position: supine Anesthetic Used: bupivacaine 0.5% Amount of anesthesia used (mL): 20 Ultrasound used to: recognize landmarks Nerve Stimulator Used?: No Interscalene/Femoral BLK: 4 stimuplex 21 g needle used for position and inplane approach Injection: neg aspiration of heme Patient Tolerated Procedure: well Complications: none
--- NOTE | 2023-03-12 09:01 | W.PM.BPON ---
Date of procedure: [March 12, 2023] Surgeon name: [Dr. Savi MALIK] Database Security Administrator(s) name(s): [Rigo Hou physician licensed physical therapy assistant] Procedure(s) performed: [Right knee manipulation under anesthesia, right knee diagnostic surgical arthroscopy with lysis of adhesions] Description of findings: [Right knee arthrofibrosis] Estimated blood loss: [5 ml] Specimen(s) removed: [n/a] Post-operative diagnosis: [Right knee arthrofibrosis]
--- NOTE | 2023-03-12 09:05 | PM.PACU ---
PACU note Narrative: Patient is a 32-year-old female that just underwent a right knee diagnostic arthroscopy. pt transferred to PACU in stable condition. Dressing is dry. pt is awake and alert. pt can wiggle toes and plantarflex and dorsiflex foot. pt able to perform straight leg raise, Femoral nerve intact. Distal pulses are palpable toes are warm and well-perfused. Cap refill is normal and under 2 seconds. Sensation to foot is intact. Pain is controlled. Exam: awake Disposition: discharged
--- NOTE | 2023-03-12 09:08 | PM.OP ---
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 Patient is status post roughly 3 months out from a right knee medial meniscus bucket-handle repair. She has noticed some clicking underneath her kneecap as well as has biggest complaint of lack of final end ranges of motion findings consistent with knee arthrofibrosis. At this point time we talked about treatment options and I feel as though her next best step given she has failed conservative approach with therapy and anti-inflammatories plan to proceed with a right knee diagnostic and surgical arthroscopy with lysis of adhesions and right knee manipulation under anesthesia.? Patient would like to proceed with surgical intervention.? Patient understand the ins and outs of the procedure the risk benefits complication alternatives to treatment options.? Understanding risk of surgery they agree to proceed with surgical intervention.?Understanding this and patient agree to proceed with surgical intervention all questions answered. Procedure: Patient seen and evaluated in the preoperative holding area.? Consent was reviewed and signed with patient.? Correct extremity was then marked.? Patient seen evaluated Anesthesia Department once cleared for surgery patient was taken back to the operative suite.? Patient was transported onto the OR table in supine position.? All bony prominences well-padded patient was appropriate secured to the bed.? Once appropriately anesthetized a nonsterile tourniquet was applied to the right thigh.? The right lower extremity was then prepped and draped in standard orthopedic fashion.? Final timeout performed.? Patient received appropriate preoperative antibiotics. Patient received local anesthetic of lidocaine with epinephrine into the joint as well as around the portal sites.? No tourniquet was inflated Prior to the procedure I performed the right knee manipulation under anesthesia.? Her range of motion prior to did have some improvement once she was relaxed but was 0 degrees to roughly 115.? When she was appropriately anesthetized I maintained a short lever arm and performed a right knee manipulation under anesthesia maintaining short lever arm audible crepitus through scar tissue was noted and the regaining of range of motion of the right knee range of motion with 0 to 130 degrees on range of motion.? ? Patient was after the manipulation under anesthesia able to achieve full range of motion comparable to contralateral knee.? I then subsequently elected to proceed with the diagnostic and surgical portion of the procedure A standard 2 portal vertical incision diagnostic and surgical arthroscopy of the right?knee?was performed in standard fashion.? Small stab incision made in the inferolateral portal introduced trocar and arthroscope into the suprapatellar pouch.? Suprapatellar pouch was subsequently visualized and found to have significant synovitis but no loose bodies.? Patient had noticeable scar tissue and thickened bands underneath the patella both on the medial and lateral aspects. ?The medial gutter was free of loose bodies I then introduced the arthroscope into the medial compartment.? Within the medial compartment I then established my inferior medial working portal utilizing spinal needle outside in technique.? Once established I then visualized our articular cartilage of the medial compartment with a valgus stress.? Patient was found to have grade 1chondromalacia throughout the medial compartment and only a small area of grade II chondromalacia on the nonweightbearing portion of the medial femoral condyle..? Next I inspected the meniscus, With an arthroscopic probe was utilized to visual? all aspects of the meniscus.? ? Patient's previous repair was inspected patient had complete incorporation of the meniscus repair and sutures remain intact. no evidence of retearing. The meniscal root was intact. No further intervention required for the meniscus. This completed work on the medial compartment I did perform a synovectomy of the medial compartment. Next a introduced the arthroscope to the intercondylar notch.? PCL and ACL were intact. patient had significant thickening of the infrapatellar fat pad spanning into the medial and lateral compartments.? I then performed an extensive synovectomy with the arthroscopic shaver of the patellofemoral medial and lateral compartments as well as the intercondylar notch. Next I introduced the arthroscope into the lateral compartment the lateral compartment was found to have grade 0 chondromalacia.? Lateral meniscus was found to be intact.? The root was intact.? Given the grade 0 chondromalacia there is no unstable cartilage pieces to perform chondroplasty.? This completed my work of the lateral compartment and then performed a synovectomy of the lateral compartment.? Next of the arthroscope was placed into the lateral gutter and this was free of loose bodies.? Finally I reintroduced the arthroscope into the patellofemoral compartment.? The patellofemoral was found to have grade 0 chondromalacia of the patellofemoral compartment.? At this point I utilized arthroscopic shaver as well as thermal wand to perform extensive synovectomy and lysis of adhesions of the patellofemoral compartment. This completed my work of the patellofemoral space.? I then switch my portal sites to the medial working portal.? Completed the rest of my synovectomy and lysis of adhesions. The rest of my examination arthroscopy was normal.? All fluid was suctioned from the joint.? ?All instruments were withdrawn.? Portal sites were closed with interrupted nylon suture.? portal sites were then covered with with Xeroform 4 x 4's ABD Curlex and Cedrick wrap.? Patient was then subsequently awakened from anesthesia and taken to PACU in stable condition. Disposition: Patient taken to PACU in stable condition recovering well.? Will receive appropriate discharge structure as well as pain medication postoperatively as well as? DVT prophylaxis.we will have patient follow-up with us in the office in 2 weeks.? We will weightbearing as tolerated to the operative lower extremity.? Patient understands and agrees with current plan.? All questions answered.
--- NOTE | 2023-03-12 15:59 | ANE.PACU2 ---
Inpatient post-anesthesia follow up: Airway intact: Yes Vital signs: Temperature 97 F Pulse Rate 83 Respiratory Rate 18 Blood Pressure 116/67 Pulse Oximetry 99 Oxygen Delivery Me thod Room Air Oxygen Flow Rate 2 Fraction of Inspir ed Oxygen Hydration adequate: Yes Nausea and vomiting: No Pain level: 3 Mental status: Baseline
== END 2023-03-12 10:17 | disposition home or self-care (01) ==
PROVIDERS: PCP Physician Assistant; Visit Provider Student in an Organized Health Care Education/Training Program
PROC: (CPT 29870; principal; 2023-03-12 07:25)
DX: M24.661 Ankylosis, right knee (principal); E66.01 Morbid (severe) obesity due to excess calories; Z68.37 Body mass index [BMI] 37.0-37.9, adult; Z79.82 Long term (current) use of aspirin
CPT/HCPCS: 29884; J0131; J0690; J1100; J1200; J1885; J2250; J2405; J2704; J2795; J3010; J7030

== ENCOUNTER 2023-07-06 09:45 | Outpatient (CLI) | payer BC, MEDICAID, SELFPAY ==
--- NOTE | 2023-07-06 10:00 | CT_ITS ---
WS: [id number] CT chest w con* [id number] HISTORY: R93.89 - Abnormal findings on diagnostic imaging of other..., History of histoplasmosis. TECHNIQUE: Axial imaging performed through the thorax. Coronal and sagittal reformats are submitted. All CT scans at [facility] use at least one of these dose optimization techniques: automated exposure control; mA and/or kV adjustment per patient size (includes targeted exams where dose is mat ched to clinical indication); or iterative reconstruction. CONTRAST: Omnipaque 350; 100 mL IV. DLP: 569.35 mGy.cm COMPARISON: 08/17/2022, 01/18/2022 Lungs and central airway: Reidentified is chronic subsegmental atelectasis involving the central RIGH T middle lobe with air bronchograms. Very similar to 08/17/2022 but improved since 01/18/2022. There is an additional subsolid opacification in the RIGHT lower lobe measuring 11 x 9 mm which is also uncha nged since 08/17/2022. No new mass or nodules. No pulmonary calcifications. Pleura: Normal. No pleural effusion. Heart and pericardium: Normal size heart with no pericardial effusion. Mediastinum and johnna: Reidentified is indeterminate hilar lymph nodes. The largest is 11 mm at the RI T hilum. No new or increasing size of any of the pulmonary nodules. Vessels: Normal size aortic and pulmonary artery. No coronary artery calcifications. Chest wall and lower neck: 5 mm nodule RIGHT thyroid. Upper abdomen: Diffuse moderate hepatic steatosis. No adrenal mass. Osseous structures: No destructive process. IMPRESSION: 1. Chronic, subsegmental atelectasis RIGHT middle lobe. 2. Subsolid opacification in the RIGHT lower lobe unchanged at 11 x 9 mm. No new pulmonary mass or n odule. 3. Indeterminate RIGHT hilar lymph node at 11 mm. 4. No pneumonia. 5. Hepatic steatosis.
== END 2023-07-06 09:46 | disposition home or self-care (01) ==
LOC: RAD 09:45
PROVIDERS: PCP Physician Assistant; Visit Provider Internal Medicine Rheumatology
DX: R93.89 Abnormal findings on diagnostic imaging of other specified body structures (principal); B39.9 Histoplasmosis, unspecified; K76.0 Fatty (change of) liver, not elsewhere classified; J98.11 Atelectasis
CPT/HCPCS: 71260; Q9967

== ENCOUNTER 2023-07-25 12:42 | Emergency (ER) | payer BC, MEDICAID, SELFPAY ==
[2023-07-25 13:08] VITALS: BP 166/96; PULSE 113; RESP 16; TEMP 36.7; O2SAT 98
--- NOTE | 2023-07-25 13:56 | ED_ITS ---
HPI - Abdominal Pain 2 General: Chief Complaint: Abdominal Pain Stated Complaint: abd pain Time Seen by Provider: 07/25/23 13:53 History of Present Illness: 33-year-old female presents emergency ro om with complaint of abdominal cramping and pain watery diarrhea no bloody stools. 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 No vomiting but has been very nauseous. No dysuria urgency or frequency. Associated Symptoms: Denies chills, dysuria and fever(s) Review of Systems 2 Const: Denies: fever(s) or chills Card: Denies: chest pain Resp: Denies: dyspnea GI: Denies: abdominal pain : Denies: dysuria, urinary frequency or urinary urgency Musc: Denies: neck pain or back pain Skin/Breast: Denies: rash PFSH ED 2 PFSH: Medical History Shortness of breath High risk medication use Anxiety Depression Chronic migraine Inflammatory arthritis Palpitation Allergy to multiple antibiotics Failure of outpatient treatment Tachycardia Pneumonia RAYNE positive Surgical History H/O tubal ligation Powderly teeth removed History of hysterectomy 2020 History of colonoscopy 2020 Family History Mother Diabetes pre-stage Arthritis Denies family history of Colon cancer Ovarian cancer Clotting disorder Heart disease Hyperlipidemia Breast cancer Suicide Bleeding disorder Hypertension Uterine cancer Stroke Social History Smoking and tobacco/nicotine status: never used tobacco/nicotine Alcohol intake: current Alcohol intake frequency: few times a week Alcohol type: wine and hard liquor Substance/Drug Use: never Lives independently: Yes Household members: spouse and children Marital status: Physical Exam 2 Const: COMMON NORMALS: no acute distress GENERAL APPEARANCE: cooperative and comfortable ORIENTATION/CONSCIOUSNESS: Yes awake, Yes oriented to person, Yes oriented to place and Yes oriented to time HENMT: COMMON NORMALS: normocephalic, atraumatic and hearing grossly normal bilaterally HEAD & SCALP: normocephalic and atraumatic Resp: COMMON NORMALS: normal respiratory effort, No retractions, No use of accessory muscles and clear to auscultation bilaterally AUSCULTATION: clear to auscultation bilaterally Cardio: COMMON NORMALS: regular rate, regular rhythm and No murmurs present (Cardio) RATE: regular rate RHYTHM: regular rhythm GI: COMMON NORMALS: Soft to palpation and No hepatosplenomegaly present A USCULTATION: Yes normoactive bowel sounds PALPATION: Yes Soft to palpation, No Tenderness to palpation present (GI), No Guarding due to palpation present (GI) and Yes No hepatosplenomegaly present Extremity: COMMON NORMALS: normal to inspection, capillary refill normal, no clubbing, cyanosis or edema, no calf tenderness and no pedal edema Neuro: SENSORIUM/ORIENTATION: Yes oriented to person, Yes oriented to place and Yes oriented to time Skin: COMMON NORMALS: no rashes or lesions noted GENERAL SKIN EXAM: no rashes or lesions noted Course 2 Vital Signs: Vital signs: Vital Signs Temperature 98.1 F 07/25/23 13:08 Pulse Rate 103 H 07/25/23 15:20 Respiratory Rate 16 07/25/23 15:20 Blood Pressure 167/77 07/25/23 15:20 Pulse Oximetry 95 07/25/23 15:20 Oxygen Delivery Me thod Room Air 07/25/23 13:08 MDM - Abdominal Pain Medical Decision Making CT does not show any acute abnormalities no leukocytosis urine was unremarkable. Discharge patient home on Protonix 40 twice daily for 10 days and 40 daily promethazine to use periodically with diet for 24 to 48 hours and advance as tolerated symptoms persist follow-up with primary care doctor to consider further evaluation including possible endoscopy if felt to be appropriate. No recent antibiotics. 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 Differential Diagnosis Likely abdominal pain Medical Records I reviewed the patient's medical records. Lab Data I reviewed the patient's lab results. 07/25/23 14:03 07/25/23 14:03 Labs/Radiology: Radiology Impressions Abdomen/Pelvis CT 07/25/23 14:08 IMPRESSION: No acute findings. COMMENTS: Consistent with the [employer]'s Incidental Findings Committee white paper (J Am Rachael Radiol 2018): Any incidental renal lesion less than 1 cm or classified as too small to characterize, or any incidental cystic renal lesion characterized as simple-appearing, is likely benign. No follow-up imaging is recommended for these lesions per consensus recommendations based on imaging criteria. Laboratory Results WBC 11.32 10^3/uL (3.29-11.43) 07/25/23 14:03 RBC 5.02 10^6/uL (3.85-5.65) 07/25/23 14:03 Hgb 14.00 g/dL (11.27-16.99) 07/25/23 14:03 Hct 42.2 % (36-47) 07/25/23 14:03 MCV 84.1 fl (85-98) L 07/25/23 14:03 MCH 27.9 pg (27-33) 07/25/23 14:03 MCHC 33.2 g/dL (30-55) 07/25/23 14:03 RDW 12.6 % (12.1-15.1) 07/25/23 14:03 Plt Count 279 10^3/cmm (157-399) 07/25/23 14:03 MPV 9.7 fL (7.4-10.4) 07/25/23 14:03 Neut % (Auto) 64.3 % 07/25/23 14:03 Lymph % (Auto) 27.5 % 07/25/23 14:03 Baker % (Auto) 5.7 % 07/25/23 14:03 Eos % (Auto) 1.9 % 07/25/23 14:03 Baso % (Auto) 0.4 % 07/25/23 14:03 Neut # (Auto) 7.29 10^3/uL (1.8-7.7) 07/25/23 14:03 Lymph # (Auto) 3.1 10^3/uL (0.8-4.8) 07/25/23 14:03 Baker # (Auto) 0.6 10^3/uL (0.2-0.9) 07/25/23 14:03 Eos # (Auto) 0.2 10^3/uL (0.0-0.8) 07/25/23 14:03 Baso # (Auto) 0.1 10^3/uL (0.0-0.1) 07/25/23 14:03 Nucleated RBC % (auto) 0 % 07/25/23 14:03 Nucleated RBCs # 0.0 /100WBC 07/25/23 14:03 Sodium 140 mmol/L (136-145) 07/25/23 14:03 Potassium 3.8 mmol/L (3.5-5.1) 07/25/23 14:03 Chloride 102 mmol/L (98-107) 07/25/23 14:03 Carbon Dioxide 25 mmol/L (22-29) 07/25/23 14:03 Anion Gap 16.8 (5-19) 07/25/23 14:03 BUN 10 mg/dL (6-20) 07/25/23 14:03 Creatinine 0.6 mg/dL (0.5-0.9) 07/25/23 14:03 GFR Calculation 113.8 mL/min (90-130) 07/25/23 14:03 Glucose 81 mg/dL (65-115) 07/25/23 14:03 Calculated Osmolality 288 mOsm/kg (285-295) 07/25/23 14:03 Calcium 9.3 mg/dL (8.5-10.5) 07/25/23 14:03 Total Bilirubin 0.4 mg/dL (0.15-1.2) 07/25/23 14:03 AST 18 U/L (0-32) 07/25/23 14:03 ALT 26 U/L (0-33) 07/25/23 14:03 Alkaline Phosphatase 86 U/L (35-105) 07/25/23 14:03 Total Protein 8.5 g/dL (6.6-8.7) 07/25/23 14:03 Albumin 4.8 g/dL (3.5-5.2) 07/25/23 14:03 Globulin 3.7 g/dL (1.3-4.6) 07/25/23 14:03 Lipase 26 U/L (13-60) 07/25/23 14:03 HCG, Qual Negative (Negative) 07/25/23 14:03 Urine Color Yellow (Yellow) 07/25/23 13:57 Urine Appearance Sl hazy (CLEAR) A 07/25/23 13:57 Urine pH 5 (5-7) 07/25/23 13:57 Ur Specific [place] 1.025 (1.005-1.030) 07/25/23 13:57 Urine Protein Trace (Negative) 07/25/23 13:57 Urine Glucose (UA) Norm (Normal) 07/25/23 13:57 Urine Ketones 1+ (Negative) H 07/25/23 13:57 Urine Blood Neg (Negative) 07/25/23 13:57 Urine Nitrate Negative (Negative) 07/25/23 13:57 Urine Bilirubin Neg (Negative) 07/25/23 13:57 Urine Urobilinogen Neg mg/dL (Negative) 07/25/23 13:57 Ur Leukocyte Esterase Negative (Negative) 07/25/23 13:57 Urine RBC None /hpf (0-2) 07/25/23 13:57 Urine WBC Rare /hpf (0-5) 07/25/23 13:57 Ur Squamous Epith Cells None /hpf (0-5) 07/25/23 13:57 Amorphous Sediment 1+ /hpf 07/25/23 13:57 Urine Bacteria Trace /hpf (NONE) 07/25/23 13:57 Urine Mucus 3+ /hpf 07/25/23 13:57 All radiology interpretation(s) finalized by discharge Discharge Plan Discharge Patient Disposition: Home Clinical Impression: Abdominal pain Condition: Stable Prescriptions: New Protonix 40 mg tablet,delayed release (DR/EC) 40 mg PO BID 10 Days Qty: 40 0RF Rx Instructions: 1 p.o. twice daily x 10 days then 1 p.o. daily promethazine 25 mg tablet 25 mg PO Q6H PRN (Reason: nausea and vomiting) Qty: 20 0RF No Action (DME) ECONOMY KNEE BRACE RIGHT See Rx Instructions .Route .MEDSUPPLY Qty: 1 0RF Rx Instructions: As directed hydroxychloroquine 200 mg tablet 200 mg PO BID Qty: 60 3RF ibuprofen [Advil] 200 mg Tablet 600 mg PO Q6H PRN (Reason: Pain) spironolactone 25 mg Tablet 25 mg PO DAILY Trulicity 0.75 mg/0.5 mL Pen Injector 0.75 mg SUBCUT Q7D Rx Instructions: ON SUNDAY Discharge Orders: Discharge ED (Routine); Ordered 07/25/23 Ordered By: Justin Estrella Referrals: Heidi Spangler PA [Primary Care Provider] - Discharge Diet: Clear Liquid Discharge Activity: Increase activity as tolerated Patient Instructions: Abdominal Pain (ED), Opioid Safety, Pain Management Activity Restrictions/Additional Instructions: Thank you for choosing [facility] for your healthcare needs today. Please realize this is an emergency room and that we are providing you with a medical screening exam and this may not be complete and all inclusive of all the testing and or work up that you may need to determine your ailment or severity of your illness. It is very important that you follow up as instructed or that you return to the Emergency Department should you have concerns or if your condition changes or worsens in any way. You are seen today for abdominal discomfort. Your white count was normal your other labs did not have any clinically significant abnormalities. Recommend you start on pantoprazole 40 mg twice a day for 10 days then once a day. You can use promethazine as needed for nausea vomiting clear liquid diet for 24 to 48 hours and advance as tolerated. CT done today did not show any acute pathology either. If not improving follow-up with your primary care doctor. 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
--- NOTE | 2023-07-25 14:08 | CTR_ITS ---
PROCEDURE INFORMATION: Exam: CT Abdomen And Pelvis With Contrast Exam date and time: 07/25/2023 2:59 PM Age: 33 years old Clinical indication: Other: Luq & rlq pain; Prior surgery; Surgery date: 6+ months; Surgery type: Hyst; Additional info: Abd pain TECHNIQUE: Imaging protocol: Computed tomography of the abdomen and pelvis with contrast. Contrast material: OMNI 350; Contrast volume: 100 ml; Contrast route: INTRAVENOUS (IV); COMPARISON: CT kidney stone [id number] 07/05/2018 9:25 AM RADIATION DOSE METRICS: Total DLP (mGy-cm): 1005.5 FINDINGS: Liver: Normal. No mass. Gallbladder and bile ducts: Normal. No calcified stones. No ductal dilation. Pancreas: Normal. No ductal dilation. Spleen: Mild 13 cm splenomegaly. Adrenal glands: Normal. No mass. Kidneys and ureters: Nonobstructing right renal calculus. Tiny renal cysts. Stomach and bowel: Unremarkable. No obstruction. No mucosal thickening. Appendix: No evidence of appendicitis. Intraperitoneal space: Unremarkable. No free air. No significant fluid collection. Vasculature: Unremarkable. No abdominal aortic aneurysm. Lymph nodes: Unremarkable. No enlarged lymph nodes. Urinary bladder: Unremarkable as visualized. Reproductive: Unremarkable as visualized. Bones/joints: Unremarkable. No acute fracture. Soft tissues: Unremarkable. CT/CT abdomen pelvis w con* [id number] IMPRESSION: No acute findings. COMMENTS: Consistent with the [employer]'s Incidental Findings Committee white paper (J Am Rachael Radiol 2018): Any incidental renal lesion less than 1 cm or classified as too small to characterize, or any incidental cystic renal lesion characterized as simple-appearing, is likely benign. No follow-up imaging is recommended for these lesions per consensus recommendations based on imaging criteria.
[2023-07-25 14:09] LABS: Basophils # 0.1 10^3/uL (0.0-0.1); Basophils % 0.4 %; Eosinophils # 0.2 10^3/uL (0.0-0.8); Eosinophils % 1.9 %; Hematocrit 42.2 % (36-47); Lymphocytes # 3.1 10^3/uL (0.8-4.8); Lymphocytes % 27.5 %; Mean Corpuscular HGB Conc 33.2 g/dL (30-55); Mean Corpuscular Hemoglobin 27.9 pg (27-33); Mean Corpuscular Volume 84.1 fl (85-98); Mean Platelet Volume 9.7 fL (7.4-10.4); Monocytes # 0.6 10^3/uL (0.2-0.9); Monocytes % 5.7 %; Neutrophils # 7.29 10^3/uL (1.8-7.7); Neutrophils % 64.3 %; Nucleated Red Blood Cells % 0 %; Platelet Count 279 10^3/cmm (157-399); Red Blood Count 5.02 10^6/uL (3.85-5.65); Red Cell Distribution Width 12.6 % (12.1-15.1); White Blood Count 11.32 10^3/uL (3.29-11.43)
[2023-07-25] MEDS: sodium chloride 0.9% 1,000 ML 999 ML IV (14:12)
--- NOTE | 2023-07-25 14:21 | PC.PHAR ---
VERIFIED MEDS WITH PATIENT. PT STATED TAKES SPIRONLACTONE 25 MG DAILY AND TRULICITY EVERY 7 DAYS-NOT SURE THE STRENGTH. PHONED PHARMACY AND VERIFIED DOSAGE AND FILL DATES FOR BOTH THESE MEDS. 07/25/23
[2023-07-25 14:26] LABS: Alanine Aminotransferase 26 U/L (0-33); Albumin Level 4.8 g/dL (3.5-5.2); Alkaline Phosphatase 86 U/L (35-105); Anion Gap 16.8 (5-19); Aspartate Amino Transferase 18 U/L (0-32); Blood Urea Nitrogen 10 mg/dL (6-20); Calcium 9.3 mg/dL (8.5-10.5); Carbon Dioxide 25 mmol/L (22-29); Chloride 102 mmol/L (98-107); Globulin 3.7 g/dL (1.3-4.6); Glomerular Filtration Rate 113.8 mL/min (90-130); Glucose 81 mg/dL (65-115); Lipase 26 U/L (13-60); Osmolality Calculated 288 mOsm/kg (285-295); Potassium 3.8 mmol/L (3.5-5.1); Sodium 140 mmol/L (136-145); Total Bilirubin 0.4 mg/dL (0.15-1.2); Total Protein 8.5 g/dL (6.6-8.7)
[2023-07-25 14:27] LABS: HCG, Serum Qual Negative (Negative)
[2023-07-25 14:53] LABS: Add Urine Microscopic? YES; Bilirubin Urine Neg (Negative); Blood Urine Neg (Negative); Glucose Urine UA Norm (Normal); Ketones Urine 1+ (Negative); Leukocyte Esterase Urine Negative (Negative); Nitrate Urine Negative (Negative); Protein Urine Trace (Negative); Specific Gravity, Urine 1.025 (1.005-1.030); Urine Appearance SL Hazy (CLEAR); Urine Color Yellow (Yellow); Urobilinogen Urine Neg (Negative); pH Urine 5 (5-7)
[2023-07-25 14:54] LABS: Add Urine Culture? No; Amorphous Sediment Urine 1+ /hpf; Bacteria Urine TRACE /hpf; Mucus Urine 3+ /hpf; WBC Urine RARE /hpf (0-5)
[2023-07-25 15:20] VITALS: BP 167/77; PULSE 103; RESP 16; O2SAT 95
== END 2023-07-25 16:05 | disposition home or self-care (01) ==
PROVIDERS: Emergency Provider Family Medicine; PCP Physician Assistant
DX: R10.9 Unspecified abdominal pain (principal); Z79.85 Long-term (current) use of injectable non-insulin antidiabetic drugs
CPT/HCPCS: 74177; 80053; 81001; 83690; 84703; 85025; 96360; 96361; 99285; J7030; Q0162; Q9967

== ENCOUNTER 2023-07-27 07:13 | Outpatient (CLI) | payer BC, MEDICAID, SELFPAY ==
--- NOTE | 2023-07-27 07:30 | US_ITS ---
WS: [id number] THYROID ULTRASOUND HISTORY: E04.1 - Nontoxic single thyroid nodule COMPARISON: None available. Right lobe: 1.8 cm x 1.5 cm x 4.8 cm (w x ap x l). Volume: 6.30 cm3. Normal size gland. Benign cyst superior pole measures 1.0 x 0.6 x 1.0 cm. No solid mass. No echogenic foci. Left lobe: 1.8 cm x 1.4 cm x 4.0 cm (w x ap x l). Volume: 4.99 cm3. Normal sized gland. There is a very small hypoechoic well-circumscribed nodule in the very posterior mid gland measuring 0.8 x 0.4 x 0.3 cm. No increased vascularity and no echogenic focus. Isthmus: 0.4 cm. IMPRESSION: BI-RADS 2: Benign bilateral thyroid nodules.
[2023-07-27 08:34] LABS: Free T4 Free Thyroxine 1.15 ng/dL (0.82-1.77); Thyroid Stimulating Hormone 0.93 uIU/mL (0.27-4.20)
== END 2023-07-27 07:14 | disposition home or self-care (01) ==
LOC: RAD 07:13
PROVIDERS: PCP Physician Assistant; Visit Provider Internal Medicine Rheumatology
DX: E04.1 Nontoxic single thyroid nodule (principal)
CPT/HCPCS: 76536; 84439; 84443

== ENCOUNTER → 2023-08-28 13:55 | Outpatient (BNVA) | payer BC, MEDICAID, SELFPAY | PROVIDERS: PCP Physician Assistant; Visit Provider Student in an Organized Health Care Education/Training Program | DX: B39.2 Pulmonary histoplasmosis capsulati, unspecified (principal) | CPT/HCPCS: 36415; 86698; 87385 ==

== ENCOUNTER → 2023-10-07 17:17 | Outpatient (BNVA) | payer BC, MEDICAID, SELFPAY | PROVIDERS: PCP Physician Assistant; Visit Provider Emergency Medicine | DX: R05.9 Cough, unspecified (principal); J20.8 Acute bronchitis due to other specified organisms; B96.89 Other specified bacterial agents as the cause of diseases classified elsewhere; J98.01 Acute bronchospasm | CPT/HCPCS: 71046 ==

== ENCOUNTER 2023-11-27 12:15 | Outpatient (CLI) | payer BC, MEDICAID, SELFPAY ==
[2023-11-27 12:52] LABS: Basophils # 0.1 10^3/uL (0.0-0.1); Basophils % 0.9 %; Eosinophils # 0.1 10^3/uL (0.0-0.8); Eosinophils % 2.2 %; Hematocrit 39.6 % (36-47); Lymphocytes # 2.7 10^3/uL (0.8-4.8); Mean Corpuscular HGB Conc 33.6 g/dL (30-55); Mean Corpuscular Volume 86.5 fl (85-98); Mean Platelet Volume 11.2 fL (7.4-10.4); Monocytes # 0.5 10^3/uL (0.2-0.9); Neutrophils # 2.98 10^3/uL (1.8-7.7); Neutrophils % 46.7 %; Nucleated Red Blood Cells % 0 %; Platelet Count 218 10^3/cmm (157-399); Red Blood Count 4.58 10^6/uL (3.85-5.65); Red Cell Distribution Width 12.8 % (12.1-15.1); White Blood Count 6.38 10^3/uL (3.29-11.43)
[2023-11-27 13:17] LABS: Alanine Aminotransferase 26 U/L (0-33); Albumin Level 4.4 g/dL (3.5-5.2); Alkaline Phosphatase 66 U/L (35-105); Aspartate Amino Transferase 17 U/L (0-32); C Reactive Protein 5.2 mg/L (0.0-4.9); Globulin 2.7 g/dL (1.3-4.6); Glomerular Filtration Rate 181.6 mL/min (90-130); Total Bilirubin 0.4 mg/dL (0.15-1.2); Total Protein 7.1 g/dL (6.6-8.7)
== END 2023-11-27 12:16 | disposition home or self-care (01) ==
LOC: LAB 12:16
PROVIDERS: PCP Physician Assistant; Visit Provider Internal Medicine Rheumatology
DX: Z79.899 Other long term (current) drug therapy (principal); M19.90 Unspecified osteoarthritis, unspecified site
CPT/HCPCS: 36415; 80076; 82565; 85025; 86140

== ENCOUNTER → 2023-12-12 13:15 | Outpatient (BNVA) | payer BC, MEDICAID, SELFPAY | PROVIDERS: PCP Physician Assistant; Visit Provider Physician Assistant | DX: Z98.890 Other specified postprocedural states (principal); M24.669 Ankylosis, unspecified knee; M17.11 Unilateral primary osteoarthritis, right knee | CPT/HCPCS: 73560; 73565 ==

== ENCOUNTER 2024-01-08 09:44 | Emergency (ER) | payer OTHER, SELFPAY ==
[2024-01-08 10:02] VITALS: BP 139/76; PULSE 92; RESP 20; TEMP 36.8; O2SAT 97
--- NOTE | 2024-01-08 10:12 | ED_ITS ---
HPI - Animal Bite General: Chief Complaint: Animal Bite Stated Complaint: cat bite/ work comp Time Seen by Provider: 01/08/24 09:57 Source: patient Mode of arrival: ambulatory Limitations: no limitations History of Present Illness: Patient is a 33-year-old female presents to ED today after she was sent here from [facility] for rabies PEP following a cat bite to her right pointer finger. 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 She states the provider at [facility] did call her in antibiotics of Levaquin and Flagyl as she has an allergy to penicillins. She did give her a tetanus. She was directed to come to the emergency department to start rabies PEP. complaint: animal bite Onset (ago): hour(s) Animal: cat Description of animal: wild animal and immunizations unknown Mechanism: bite Context: provoked (trying to vaccinate the cat) Associated symptoms: Reports no associated symptoms; Deny fever(s) Related Data: Patient tetanus UTD: Yes (just received at ) Review of Systems Const: Denies: fever(s) Musc: Reports: extremity pain (R index finger) Skin/Breast: Reports: other (cat bites to index finger) Neuro: Denies: numbness in extremities, weakness in extremities or sensory changes PFS ED PFSH: Medical History Shortness of breath High risk medication use Anxiety Depression Chronic migraine Inflammatory arthritis Palpitation Allergy to multiple antibiotics Failure of outpatient treatment Tachycardia Pneumonia RAYNE positive Surgical History H/O tubal ligation [place] teeth removed History of hysterectomy 2020 History of colonoscopy 2020 Family History Mother Diabetes pre-stage Arthritis Denies family history of Colon cancer Ovarian cancer Clotting disorder Heart disease Hyperlipidemia Breast cancer Suicide Bleeding disorder Hypertension Uterine cancer Stroke Social History Smoking and tobacco/nicotine status: never used tobacco/nicotine Alcohol intake: current Alcohol intake frequency: few times a week Alcohol type: wine and hard liquor Substance/Drug Use: never Lives independently: Yes Household members: spouse and children Marital status: Physical Exam Const: COMMON NORMALS: no acute distress, average body habitus, patient oriented x3, no limitations, healthy appearing, alert and well nourished Extremity: COMMON NORMALS: capillary refill normal GENERAL: Yes normal exam except as noted RIGHT UPPER EXTREMITY: Yes hand & digits (multiple superficial bites R index finger; mild swelling) Right hand and digits: Yes ROM exam (normal) and Yes neurovascular exam (normal) OTHER: full ROM of digit at this time Neuro: COMMON NORMALS: patient oriented x3, moves all extremities, no focal motor deficits and no sensory deficits noted SENSORIUM/ORIENTATION: Yes alert Skin: NARRATIVE SKIN EXAM: see above Course Vital Signs: Vital signs: Vital Signs Temperature 98.2 F 01/08/24 10:02 Pulse Rate 92 01/08/24 10:02 Respiratory Rate 20 H 01/08/24 10:02 Blood Pressure 139/76 01/08/24 10:02 Pulse Oximetry 97 01/08/24 10:02 Oxygen Delivery Me thod Room Air 01/08/24 10:02 MDM - Animal Bite Medical Decision Making Patient received tetanus shot at [facility] prior to arrival here. She was called in antibiotics of Levaquin and Flagyl as she has an allergy to penicillins. This should provide adequate coverage. She was started on rabies PEP. She will be given a schedule for the remainder of her rabies vaccines through the infusion center. Return precautions given regarding infection. Differential Diagnosis Likely bite by animal and cat bite Medical Records I reviewed the patient's medical records. No radiology studies performed this visit Discharge Plan Discharge Patient Disposition: Home Clinical Impression: Cat bite of multiple sites of right hand and fingers Condition: Stable Prescriptions: No Action (DME) ECONOMY KNEE BRACE RIGHT See Rx Instructions .Route .MEDSUPPLY Qty: 1 0RF Rx Instructions: As directed leflunomide 20 mg tablet 20 mg PO DAILY Qty: 30 5RF hydroxychloroquine 200 mg tablet 200 mg PO BID Qty: 180 1RF ibuprofen [Advil] 200 mg Tablet 600 mg PO Q6H PRN (Reason: Pain) spironolactone 25 mg Tablet 25 mg PO DAILY Trulicity 0.75 mg/0.5 mL Pen Injector 0.75 mg SUBCUT Q7D Rx Instructions: ON SUNDAY promethazine 25 mg tablet 25 mg PO Q6H PRN (Reason: nausea and vomiting) Qty: 20 0RF Discharge Orders: Discharge ED (Routine); Ordered 01/08/24 Ordered By: Elizabteh Alvarado Referrals: Heidi Spangler PA [Primary Care Provider] - Patient Instructions: Animal Bite (ED) Activity Restrictions/Additional Instructions: Fill your antibiotics and start them immediately. Monitor closely for signs of infection such as worsening swelling, pain, painful or limited range of motion of your finger, redness, red streaking up your hand or arm, discharge/drainage, fevers, or any other concerns you may have. Please seek medical re-evaluation if these occur. You should have been provided a schedule prior to discharge for the remainder of your rabies vaccinations through our infusion center. Coding Level of Care Code ED Watch And Clock Maker And Repairer for Maxine Mcgee
[2024-01-08] MEDS: rabies vaccine 2.5 unit SDV IM (11:14)
[2024-01-08] MEDS: rabies IG 300 unit/mL SDV 1 mL 1920 UNIT IM (11:20)
== END 2024-01-08 11:58 | disposition home or self-care (01) ==
PROVIDERS: Emergency Provider Physician Assistant; PCP Physician Assistant
DX: S61.451A Open bite of right hand, initial encounter (principal); S60.470A Other superficial bite of right index finger, initial encounter; W55.01XA Bitten by cat, initial encounter; Z79.85 Long-term (current) use of injectable non-insulin antidiabetic drugs; Z23 Encounter for immunization; Z20.3 Contact with and (suspected) exposure to rabies; Z29.14 Encounter for prophylactic rabies immune globulin
CPT/HCPCS: 90375; 90471; 90675; 96372; 99283

== ENCOUNTER 2024-01-22 13:15 | Oncology outpatient (recurring) (ONCR) | payer OTHER, SELFPAY ==
[2024-01-11 08:20] VITALS: BP 121/84; PULSE 92; RESP 16; TEMP 36.7; O2SAT 96
[2024-01-11] MEDS: rabies vaccine 2.5 unit SDV IM (08:30)
[2024-01-15] MEDS: rabies vaccine 2.5 unit SDV IM (12:10)
[2024-01-15 12:22] VITALS: BP 125/89; PULSE 95; RESP 17; TEMP 36.5; O2SAT 99
[2024-01-22] MEDS: rabies vaccine 2.5 unit SDV IM (13:28)
== END 2024-02-07 09:18 | disposition home or self-care (01) ==
PROVIDERS: PCP Physician Assistant; Visit Provider Physician Assistant
DX: Z53.9 Procedure and treatment not carried out, unspecified reason (principal); Z20.3 Contact with and (suspected) exposure to rabies; Z23 Encounter for immunization; S61.250A Open bite of right index finger without damage to nail, initial encounter; W55.01XA Bitten by cat, initial encounter; Y99.0 Civilian activity done for income or pay
CPT/HCPCS: 90471; 90675

== ENCOUNTER → 2024-02-11 10:15 | Outpatient (BNVA) | payer BC, MEDICAID, SELFPAY | PROVIDERS: PCP Physician Assistant; Visit Provider Internal Medicine Rheumatology | DX: Z79.899 Other long term (current) drug therapy (principal); M19.90 Unspecified osteoarthritis, unspecified site; R79.82 Elevated C-reactive protein (CRP) | CPT/HCPCS: 36415; 80076; 82565; 85025; 85651; 86140 ==

== ENCOUNTER 2024-03-11 07:15 | Outpatient (CLI) | payer BC, MEDICAID, SELFPAY ==
--- NOTE | 2024-03-11 07:23 | MR_ITS ---
WS: [id number] MRI BRAIN WITHOUT CONTRAST HISTORY: HEADACHE COMPARISON: None available. TECHNIQUE: Diffusion imaging, multiplanar T1, T2 and FLAIR imaging obtained. No acute infarct. Diffusion imaging is normal. No hemorrhage. No prior infarct. There are several areas of increased T2 and FLAIR signal hyperintensities throughou t the white matter. This several of these hyperintensities are associated with the corpus callosum an d greatest on the LEFT. Foci of increased signal adjacent to the anterior horn of the LEFT lateral ve ntricle and also in the corpus callosum of the posterior lateral ventricle. There are a few additiona l scattered subcortical white matter lesions. Slightly greater distribution on the LEFT. No abnormali ty in the posterior fossa. No temporal lobe signal abnormality. No abnormality of the optic nerves al though this exam is not targeted to the optic nerves for neuritis. Ventricles and extra-axial spaces are normal. Normal hippocampal formations. No inferior displacement of cerebellar tonsils. The sella turcica and pituitary gland are unremarkabl e. Dural venous sinuses and [place] demonstrate no abnormality on this unenhanced studies. Paranasal sinuses: Small amount of fluid in the LEFT sphenoid sinus. Mastoid air cells: Normal. Calvarium and scalp: Intact. MR/MR head wo con* [id number] IMPRESSION: 1. No acute infarct or hemorrhage. 2. T2 and FLAIR signal hyperintensities contacting the LEFT corpus callosum. M ore than expected for a patient of this age. Differential includes demyelinatin g disease. Multiple sclerosis needs to be excluded. Additional etiologies to co nsider are smoking history, migraines, diabetes and small vessel disease. Consi jamel evaluation by neurology. Additional MRI imaging recommended. MRI brain with and without contrast with multiple sclerosis protocol. Cervical spine MRI with and without contrast also would be of benefit. 3. No hydrocephalus.
== END 2024-03-11 07:19 | disposition home or self-care (01) ==
PROVIDERS: PCP Physician Assistant; Visit Provider Physician Assistant
DX: R51.9 Headache, unspecified (principal); R94.02 Abnormal brain scan
CPT/HCPCS: 70551

== ENCOUNTER 2024-04-14 07:03 | Outpatient (CLI) | payer BC, MEDICAID, SELFPAY ==
--- NOTE | 2024-04-14 07:11 | MR_ITS ---
WS: [id number] MRI HEAD WITH CONTRAST TECHNIQUE: Sagittal T1, T2 axial, T2 axial FLAIR, axial susceptibility weighted imaging, axial diffus ion weighted images, and coronal T2 images were obtained. Pre and post-T1 axial and post T1 coronal i mages. ADC and FSPGR images. CLINICAL INFORMATION: ABNORMAL MRI OF HEAD COMPARISON: MRI 03/11/2024 FINDINGS: No evidence of restricted diffusion to suggest acute ischemia. Ventricular system and basal cisterns are patent. Again seen are patchy supratentorial white matter changes some in a pericallosal distribu tion unchanged since the recent examination. Focal lesion along the LEFT frontal horn is unchanged. N o significant atrophy of the corpus callosum. No abnormal gadolinium enhancement. Mild T1 hypointense lesion load. No enhancing lesions to indicate active demyelinating disease. Normal posterior fossa. Normal vascular flow voids at the skull base. No extra-axial fluid collection s. No evidence of mass or mass effect. No hemosiderin on the susceptibly weighted images. Temporal lobes and hippocampal formations are norm al in appearance. Small amount of fluid in the LEFT sphenoid sinus. Mastoid air cells are well aerate d. MR/MR head wo/w con [id number] IMPRESSION: 1. Mild patchy supratentorial white matter changes stable compared to previous . This is somewhat prominent but remains nonspecific in a patient this age. Thi s appearance can be seen with demyelinating disease, as well as hypertension, d iabetes, and migraine headaches. Consider neurology consultation as previously described to exclude demyelinating disease 2. No significant atrophy of the corpus callosum. A few pericallosal lesions s uspicious for demyelinating disease but nonspecific 3. Consider MRI cervical spine without and with gadolinium enhancement to asse ss for additional lesions 4. No abnormal gadolinium enhancement. 5. A few T1 hypointense lesions. 6. LEFT sphenoid sinusitis 7. No other acute findings.
[2024-04-14] MEDS: gadobenate dimeglumine 20 mL vial IV (08:04)
== END 2024-04-14 07:04 | disposition home or self-care (01) ==
LOC: RAD 07:04
PROVIDERS: PCP Physician Assistant; Visit Provider Physician Assistant
DX: G93.89 Other specified disorders of brain (principal); J01.30 Acute sphenoidal sinusitis, unspecified
CPT/HCPCS: 70553; A9577

== ENCOUNTER 2024-05-19 12:23 | Outpatient (CLI) | payer BC, SELFPAY | END 2024-05-19 12:24 | disposition home or self-care (01) | LOC: SLEEP 12:25 | PROVIDERS: PCP Physician Assistant; Visit Provider Physician Assistant | DX: G47.33 Obstructive sleep apnea (adult) (pediatric) (principal) | CPT/HCPCS: G0399 ==

== ENCOUNTER 2024-05-23 17:18 | Emergency (ER) | payer BC, MEDICAID, SELFPAY ==
[2024-05-23 17:51] VITALS: BP 136/82; PULSE 102; RESP 17; TEMP 37.2; O2SAT 100; BMI 34.7
[2024-05-23 18:51] LABS: Bilirubin Urine Negative (Negative); Blood Urine Trace (Negative); Glucose Urine UA Negative (Normal); Ketones Urine Negative (Negative); Leukocyte Esterase Urine Negative (Negative); Nitrate Urine Negative (Negative); Protein Urine Negative (Negative); Specific Gravity, Urine 1.024 (1.005-1.030); Urine Appearance Clear (CLEAR); Urine Color Yellow (Yellow); Urobilinogen Urine 0.2 mg/dL (Negative); pH Urine 5.5 (5-7)
[2024-05-23 18:56] LABS: Add Urine Microscopic? YES; Bacteria Urine None Seen /hpf; Hyaline Casts Urine 0.81 /lpf; Squamous Epithelial Cell Urine 0-5 /hpf (0-5); WBC Urine 0-5 /hpf (0-5)
--- NOTE | 2024-05-23 19:00 | CTR_ITS ---
PROCEDURE INFORMATION: Exam: CT Abdomen And Pelvis Without Contrast Exam date and time: 05/23/2024 7:09 PM Age: 33 years old Clinical indication: Abdominal pain; Right; Prior surgery; Surgery date: 6+ months; Surgery type: Tubal; Patient HX: C/O RT flank pain; Additional info: Severe urinary urgency, right flank pain TECHNIQUE: Imaging protocol: Computed tomography of the abdomen and pelvis without contrast. Radiation optimization: All CT scans at this facility use at least one of these dose optimization techniques: automated exposure control; mA and/or kV adjustment per patient size (includes targeted exams where dose is matched to clinical indication); or iterative reconstruction. COMPARISON: CT abdomen pelvis w con* [id number] 07/25/2023 2:59 PM RADIATION DOSE METRICS: Total DLP (mGy-cm): 922.42 FINDINGS: Lungs: Mild patchy reticulonodular opacity in the medial right lung base up to 1.2 x 0.9 cm (series 3, image 1) is unchanged from 07/25/2023 and 08/17/2022, likely focal scarring sequelae of prior right basilar pneumonia on 01/18/2022. Liver: Normal. No mass. Gallbladder and biliary ducts: No biliary dilatation. Small amount of sludge and punctate stones appear to present in the gallbladder. Pancreas: Normal. No ductal dilation. Spleen: Punctate splenic granuloma. Adrenal glands: Normal. No mass. Kidneys and ureters: Punctate nonobstructive lower pole left renal stone. Mild right hydronephrosis and hydroureter due to 4 mm stone in the distal right ureter (series 3, image 190, series 5, image 62), clearly representing a new density along the ureter , with stable adjacent vascular phleboliths. 5 mm nonobstructive lower pole right renal stone again demonstrated. Stomach and bowel: Unremarkable. No obstruction. No mucosal thickening. Appendix: Unremarkable appendix. Intraperitoneal space: Unremarkable. No free air. No significant fluid collection. Vasculature: Unremarkable. No abdominal aortic aneurysm. Lymph nodes: Unremarkable. No enlarged lymph nodes. Urinary bladder: Unremarkable as visualized. Reproductive: Absent uterus. Bones/joints: Mild multilevel lumbar endplate and facet sclerosis. No advanced degenerative changes. No acute osseous abnormality. Soft tissues: Unremarkable. CT/CT kidney stone [id number] IMPRESSION: 1. Mild right hydroureteronephrosis due to a 4 mm distal right ureteric stone near the UV junction. 2. Additional nonobstructive 5 mm right renal stone again demonstrated. Punctate nonobstructive left renal stone. 3. Other chronic and postsurgical findings detailed above.
--- NOTE | 2024-05-23 19:21 | ED_ITS ---
HPI - Female Genitourinary 2 General: Chief complaint: Urogenital-Female Stated complaint: urinary Time Seen by Provider: 05/23/24 18:36 Source: patient Mode of arrival: ambulatory Limitations: no limitations History of Present Illness: Patient is a 33-year-old female who presents to the emergency department complaining of urinary urgency for the past 2 days. She states that initially she had hematuria with her urgency, went to [facility] and was checked for UTI. This was since cultured and negative for any infectious etiology, however she was started on tramadol, Flomax, and Zofran for potential kidney stone picture. She does report a history of kidney stones, and also has seen urology in the past. She states this does not feel like a kidney stone, she has only had some mild right flank pain and the hematuria has since improved. Denies any dysuria. She is not reporting any fevers, nausea/vomiting, or any other concerning symptoms at this time. She is denying any vaginal bleeding, odor, or discharge. MD elicited complaint: other (Urinary urgency) Pertinent past history: other (Kidney stones) Onset (ago): day(s) Vaginal discharge: none Vaginal bleeding: none Urinary symptoms: Urgency Exacerbating factors: none Relieving factors: none Associated symptoms: Deny abdominal pain, headache(s) or nausea Related Data Home Medications Medication Instructions Recorded Confirmed ibuprofen 200 mg tablet (Advil) 600 mg PO Q6H PRN Pain 01/19/22 05/12/24 dulaglutide 0.75 mg/0.5 mL 0.75 mg SUBCUT Q7D 07/25/23 05/12/24 subcutaneous pen injector (Trulicity) spironolactone 25 mg tablet 25 mg PO DAILY 07/25/23 05/12/24 amitriptyline 10 mg tablet 10 mg PO DAILY 02/11/24 05/12/24 cholecalciferol (vitamin D3) 125 125 mcg PO DAILY 02/11/24 05/12/24 mcg (5,000 unit) tablet (Vitamin D3) folic acid 800 mcg tablet 0.8 mg PO DAILY 02/11/24 05/12/24 propranolol 20 mg tablet 20 mg PO BID 02/11/24 05/12/24 Previous Rx's Medication Instructions Recorded ECONOMY KNEE BRACE RIGHT #1 ea 03/27/23 hydroxychloroquine 200 mg tablet 200 mg PO BID #180 tabs 09/24/23 leflunomide 20 mg tablet 20 mg PO DAILY #30 tabs 09/24/23 etanercept 50 mg/mL (1 mL) 50 mg SUBCUT .Q7days #4 mL 03/20/24 subcutaneous syringe (Enbrel) cephalexin 500 mg capsule 500 mg PO TID 7 days #21 caps 05/12/24 Allergies Allergy/AdvReac Type Severity Reaction Status Date / Time minocycline Allergy Severe severe Verified 04/15/24 14:13 hives, jiont swelling vancomycin Allergy Severe red man Verified 04/15/24 14:13 syndrome Penicillins Allergy Intermediate ALGY-Hives Verified 04/15/24 14:13 sulfamethoxazole Allergy Mild fine white Verified 04/15/24 14:13 [From Bactrim] rash/ itching trimethoprim [From Bactrim] Allergy Mild fine white Verified 04/15/24 14:13 rash/ itching amoxicillin Allergy hives Verified 04/15/24 14:13 steroids Allergy ADR-Headach Uncoded 04/15/24 14:13 e Review of Systems 2 General: Reports: 10 or more systems reviewed and unremarkable except in HPI and below Const: Denies: fever(s), chills, change in appetite, change in weight or diaphoresis ENMT: Denies: throat pain or hoarseness Card: Denies: chest pain, palpitations or lightheadedness Resp: Denies: dyspnea, productive cough or wheezing GI: Denies: abdominal pain, nausea, vomiting, diarrhea, constipation, bloating, change in stool character or hematochezia : Reports: urinary urgency; Denies: flank pain, difficulty voiding, dysuria, urinary frequency, hematuria, vaginal odor or vaginal bleeding Musc: Denies: neck pain or back pain Skin/Breast: Denies: rash or new lesions Neuro: Denies: headache(s) or dizziness PFSH ED 2 PFSH: Medical History Immunization counseling Seronegative rheumatoid arthritis of both hands Shortness of breath High risk medication use Anxiety Depression Chronic migraine Inflammatory arthritis Palpitation Allergy to multiple antibiotics Failure of outpatient treatment Tachycardia Pneumonia RAYNE positive Surgical History H/O tubal ligation [place] teeth removed History of hysterectomy 2020 History of colonoscopy 2020 Family History Mother Diabetes pre-stage Arthritis Denies family history of Colon cancer Ovarian cancer Clotting disorder Heart disease Hyperlipidemia Breast cancer Suicide Bleeding disorder Hypertension Uterine cancer Stroke Social History Smoking and tobacco/nicotine status: never used tobacco/nicotine Alcohol intake: current Alcohol intake frequency: few times a week Alcohol type: wine and hard liquor Substance/Drug Use: never Lives independently: Yes Household members: spouse and children Marital status: Physical Exam 2 Const: COMMON NORMALS: no acute distress, average body habitus, no limitations, healthy appearing and well nourished GENERAL APPEARANCE: c ooperative and comfortable ORIENTATION/CONSCIOUSNESS: Yes awake Eye: COMMON NORMALS: Equal, round and reactive pupils present, EOMs intact bilaterally, conjunctivae normal and normal visual bishop by confrontation C ONJUNCTIVA: Yes conjunctivae normal PUPIL: Yes Equal, round and reactive pupils present Neck/C-Spine: COMMON NORMALS: full ROM, supple and no JVD Resp: COMMON NORMALS: normal respiratory effort, No retractions, No use of accessory muscles and clear to auscultation bilaterally AUSCULTATION: clear to auscultation bilaterally, no crackles, no rales, no rhonchi and no wheezes Cardio: COMMON NORMALS: no JVD, regular rate, regular rhythm, S1 normal heart sound present, S2 normal heart sound present, No gallops present (Cardio), No clicks present (Cardio), No murmurs present (Cardio), No rub (Cardio) and Peripheral pulses 2+ throughout RATE: regular rate RHYTHM: regular rhythm HEART SOUNDS: S1 normal heart sound present and S2 normal heart sound present PERIPHERAL PULSES: Peripheral pulses 2+ throughout GI: COMMON NORMALS: Normal to inspection, nondistended, normoactive bowel sounds present, Soft to palpation, non-tender, No hepatosplenomegaly present and no masses AUSCULTATION: Yes normoactive bowel sounds PALPATION: Yes Soft to palpation, No Guarding due to palpation present (GI), No Rigid due to palpation and Yes No hepatosplenomegaly present RECTAL EXAM: deferred : COMMON NORMALS: Yes no CVA tenderness BLADDER/KIDNEY EXAM: Yes no CVA tenderness Back/Pelvis: COMMON NORMALS: no CVA tenderness Extremity: COMMON NORMALS: normal to inspection and full ROM Psych: COMMON NORMALS: mental status grossly normal, cooperative and speech normal SPEECH: Yes normal speech Skin: COMMON NORMALS: no rashes or lesions noted GENERAL SKIN EXAM: no rashes or lesions noted Course 2 Vital Signs: Vital signs: Vital Signs Temperature 99.0 F 05/23/24 17:51 Pulse Rate 102 H 05/23/24 17:51 Respiratory Rate 17 05/23/24 17:51 Blood Pressure 136/82 05/23/24 17:51 Pulse Oximetry 100 05/23/24 17:51 Oxygen Delivery Me thod Room Air 05/23/24 17:51 MDM - Female Medical Decision Making Patient has had 2 days of urgency with urination, seen by primary care had urinalysis that was cultured and did not reveal any signs of infection. Presenting today stating she still having urgency, does have a history of kidney stones. CT here demonstrating ureterolithiasis with 4 mm stone at the distal UVJ, and with her history of previous stones will refer her to urology. She is already on tramadol for pain, Flomax, and Zofran so no new prescriptions added here. Likely her bladder spasms are secondary to the ureterolithiasis, however we will have her follow-up with urology and return with any new or concerning symptoms. Her vitals have been stable throughout ED course, her labs all completely unremarkable including urinalysis not demonstrating infection. Lab Data 05/23/24 19:22 05/23/24 19:22 Radiology Impressions Abdomen/Pelvis CT 05/23/24 19:00 IMPRESSION: 1. Mild right hydroureteronephrosis due to a 4 mm distal right ureteric stone near the UV junction. 2. Additional nonobstructive 5 mm right renal stone again demonstrated. Punctate nonobstructive left renal stone. 3. Other chronic and postsurgical findings detailed above. Laboratory Results WBC 11.62 10^3/uL (3.29-11.43) H 05/23/24 19: RBC 4.50 10^6/uL (3.85-5.65) 05/23/24 19:22 Hgb 13.00 g/dL (11.27-16.99) 05/23/24 19: Hct 40.0 % (36-47) 05/23/24 19:22 MCV 88.9 fl (85-98) 05/23/24 19: MCH 28.9 pg (27-33) 05/23/24 19: MCHC 32.5 g/dL (30-55) 05/23/24 19:22 RDW 12.4 % (12.1-15.1) 05/23/24 19:22 Plt Count 231 10^3/cmm (157-399) 05/23/24 19:22 MPV 10.1 fL (7.4-10.4) 05/23/24 19:22 Neut % (Auto) 62.8 % 05/23/24 19:22 Lymph % (Auto) 27.7 % 05/23/24 19:22 [place] % (Auto) 6.4 % 05/23/24 19:22 Eos % (Auto) 2.3 % 05/23/24 19:22 Baso % (Auto) 0.5 % 05/23/24: Neut # (Auto) 7.30 10^3/uL (1.8-7.7) 05/23/24 19:22 Lymph # (Auto) 3.2 10^3/uL (0.8-4.8) 05/23/24 19:22 [place] # (Auto) 0.7 10^3/uL (0.2-0.9) 05/23/24 19:22 Eos # (Auto) 0.3 10^3/uL (0.0-0.8) 05/23/24:22 Baso # (Auto) 0.1 10^3/uL (0.0-0.1) 05/23/24 19:22 Nucleated RBC % (auto) 0 % 05/23/24 19: Nucleated RBCs # 0.0 /100WBC 05/23/24 19:22 Sodium 138 mmol/L (136-145) 05/23/24 19:22 Potassium 3.8 mmol/L (3.5-5.1) 05/23/24 19:22 Chloride 102 mmol/L (98-107) 05/23/24 19:22 Carbon Dioxide 28 mmol/L (22-29) 05/23/24 19:22 Anion Gap 11.8 (5-19) 05/23/24 19:22 BUN 10 mg/dL (6-20) 05/23/24 19: Creatinine 0.5 mg/dL (0.5-0.9) 05/23/24 19: GFR Calculation 140.4 mL/min (90-130) H 05/23/24 19:22 Glucose 92 mg/dL (65-115) 05/23/24 19:22 Calculated Osmolality 285 mOsm/kg (285-295) 05/23/24 19: Calcium 9.5 mg/dL (8.5-10.5) 05/23/24 19:22 Total Bilirubin 0.3 mg/dL (0.15-1.2) 05/23/24 19: AST 22 U/L (0-32) 05/23/24 19: ALT 22 U/L (0-33) 05/23/24 19: Alkaline Phosphatase 61 U/L (35-105) 05/23/24 19:22 Total Protein 7.3 g/dL (6.6-8.7) 05/23/24 19: Albumin 4.5 g/dL (3.5-5.2) 05/23/24 19: Globulin 2.8 g/dL (1.3-4.6) 05/23/24 19: Urine Color Yellow (Yellow) 05/23/24 18: Urine Appearance Clear (CLEAR) 05/23/24 18: Urine pH 5.5 (5-7) 05/23/24 18:30 Ur Specific [place] 1.024 (1.005-1.030) 05/23/24 18: Urine Protein Negative (Negative) 05/23/24 18: Urine Glucose (UA) Negative (Normal) 05/23/24 18:30 Urine Ketones Negative (Negative) 05/23/24 18:30 Urine Blood Trace (Negative) A 05/23/24 18: Urine Nitrate Negative (Negative) 05/23/24 18: Urine Bilirubin Negative (Negative) 05/23/24 18: Urine Urobilinogen 0.2 mg/dL (Negative) 05/23/24 18:30 Ur Leukocyte Esterase Negative (Negative) 05/23/24 18:30 Urine RBC 3-5 /hpf (0-2) 05/23/24 18: Urine WBC 0-5 /hpf (0-5) 05/23/24 18:30 Ur Squamous Epith Cells 0-5 /hpf (0-5) 05/23/24 18:30 Amorphous Sediment Not Reportable 05/23/24 18:30 Urine Bacteria None seen /hpf (NONE) 05/23/24 18:30 Hyaline Casts 0.81 /lpf 05/23/24 18:30 All radiology interpretation(s) finalized by discharge Discharge Plan Discharge Patient Disposition: Home Clinical Impression: Ureterolithiasis Condition: Stable Prescriptions: No Action (DME) ECONOMY KNEE BRACE RIGHT See Rx Instructions .Route .MEDSUPPLY Qty: 1 0RF Rx Instructions: As directed leflunomide 20 mg tablet 20 mg PO DAILY Qty: 30 5RF Hold Instructions: Doctor's Order hydroxychloroquine 200 mg tablet 200 mg PO BID Qty: 180 1RF amitriptyline 10 mg tablet 10 mg PO DAILY propranolol 20 mg tablet 20 mg PO BID folic acid 800 mcg tablet 0.8 mg PO DAILY cholecalciferol (vitamin D3) [Vitamin D3] 125 mcg (5,000 unit) tablet 125 mcg PO DAILY cephalexin 500 mg capsule 500 mg PO TID 7 Days Qty: 21 0RF Enbrel 50 mg/mL (1 mL) syringe 50 mg SUBCUT .Q7days Qty: 4 4RF ibuprofen [Advil] 200 mg Tablet 600 mg PO Q6H PRN (Reason: Pain) spironolactone 25 mg Tablet 25 mg PO DAILY Trulicity 0.75 mg/0.5 mL Pen Injector 0.75 mg SUBCUT Q7D Rx Instructions: ON SUNDAY Discharge Orders: Discharge ED (Routine); Ordered 05/23/24 Ordered By: Jose J Kennedy Referrals: Heidi Spangler PA [Primary Care Provider] - Patient Instructions: Ureteral Stones (ED) Activity Restrictions/Additional Instructions: Follow-up with urology as discussed, await call to schedule appointment. Follow-up with your primary care provider. Continue taking medications already prescribed to you. Return with any onset of fever, severe nausea/vomiting, burning with urination or signs of UTI, or other concerning symptoms you may have. Coding Level of Care Code ED Rigger Helper for Maxine Mcgee
[2024-05-23 19:26] LABS: Basophils # 0.1 10^3/uL (0.0-0.1); Basophils % 0.5 %; Eosinophils # 0.3 10^3/uL (0.0-0.8); Eosinophils % 2.3 %; Lymphocytes # 3.2 10^3/uL (0.8-4.8); Lymphocytes % 27.7 %; Mean Corpuscular HGB Conc 32.5 g/dL (30-55); Mean Corpuscular Hemoglobin 28.9 pg (27-33); Mean Corpuscular Volume 88.9 fl (85-98); Mean Platelet Volume 10.1 fL (7.4-10.4); Monocytes # 0.7 10^3/uL (0.2-0.9); Monocytes % 6.4 %; Neutrophils % 62.8 %; Nucleated Red Blood Cells % 0 %; Platelet Count 231 10^3/cmm (157-399); Red Cell Distribution Width 12.4 % (12.1-15.1); White Blood Count 11.62 10^3/uL (3.29-11.43)
[2024-05-23 19:46] LABS: Alanine Aminotransferase 22 U/L (0-33); Albumin Level 4.5 g/dL (3.5-5.2); Alkaline Phosphatase 61 U/L (35-105); Anion Gap 11.8 (5-19); Aspartate Amino Transferase 22 U/L (0-32); Blood Urea Nitrogen 10 mg/dL (6-20); Calcium 9.5 mg/dL (8.5-10.5); Carbon Dioxide 28 mmol/L (22-29); Chloride 102 mmol/L (98-107); Creatinine Clr Calc Pharmacy 178.7985; Globulin 2.8 g/dL (1.3-4.6); Glomerular Filtration Rate 140.4 mL/min (90-130); Glucose 92 mg/dL (65-115); Osmolality Calculated 285 mOsm/kg (285-295); Potassium 3.8 mmol/L (3.5-5.1); Sodium 138 mmol/L (136-145); Total Bilirubin 0.3 mg/dL (0.15-1.2); Total Protein 7.3 g/dL (6.6-8.7)
--- NOTE | 2024-05-23 20:44 | PC.NURSE ---
Rounded on pt. Updated on delays. Pt assisted to restroom at this time. Denies further needs.
[2024-05-23 21:46] VITALS: BP 130/71; PULSE 89; RESP 17; O2SAT 98
--- NOTE | 2024-05-27 08:37 | DCPLANNER ---
Referral sent to [facility]
== END 2024-05-23 21:46 | disposition home or self-care (01) ==
PROVIDERS: Emergency Medicine; Emergency Provider Physician Assistant; PCP Physician Assistant
DX: N20.1 Calculus of ureter (principal)
CPT/HCPCS: 36415; 74176; 80053; 81001; 85025; 99284

== ENCOUNTER 2024-05-23 23:48 | Emergency (ER) | payer BC, MEDICAID, SELFPAY ==
[2024-05-23 23:51] VITALS: BP 152/86; PULSE 82; RESP 21; TEMP 36.5; O2SAT 99; BMI 34.7
--- NOTE | 2024-05-24 00:06 | ED_ITS ---
HPI - Abdominal Pain 2 General: Chief Complaint: Abdominal Pain Stated Complaint: kidney stones Time Seen by Provider: 05/23/24 23:58 Source: patient Mode of arrival: ambulatory Limitations: no limitations History of Present Illness: Patient is a 33-year-old female who presents to the emergency department for the second time this evening for worsening right flank pain. I did see this patient a few hours ago, where she was found on CT to have a 4 mm stone at the UVJ as well as a renal stone, she was not having pain at that time just urinary urgency. She states that she went home and the pain suddenly spiked despite taking her tramadol. She has also taken the Flomax and Zofran and has had no relief. Complaining of severe 10/10 pain. No fevers, shortness of breath, or other new symptoms to report. She does state that primarily it is in the right flank, does radiate down into the right lower quadrant. MD elicited complaint: abdominal pain and flank pain Pertinent past history: kidney stones Onset (ago): day(s) Pain Consistency: constant Severity: severe Pain scale (0-10): 10 Quality: stabbing and sharp Exacerbating factors: movement Relieving factors: nothing Context: other (Diagnosed kidney stones) Associated Symptoms: Reports nausea and vomiting; Denies bloating, change in stool character, chills, constipation, diarrhea, dysuria, fever(s), hematochezia and hematuria Related Data Home Medications Medication Instructions Recorded Confirmed ibuprofen 200 mg tablet (Advil) 600 mg PO Q6H PRN Pain 01/19/22 05/12/24 dulaglutide 0.75 mg/0.5 mL 0.75 mg SUBCUT Q7D 07/25/23 05/12/24 subcutaneous pen injector (Trulicity) spironolactone 25 mg tablet 25 mg PO DAILY 07/25/23 05/12/24 amitriptyline 10 mg tablet 10 mg PO DAILY 02/11/24 05/12/24 cholecalciferol (vitamin D3) 125 125 mcg PO DAILY 02/11/24 05/12/24 mcg (5,000 unit) tablet (Vitamin D3) folic acid 800 mcg tablet 0.8 mg PO DAILY 02/11/24 05/12/24 propranolol 20 mg tablet 20 mg PO BID 02/11/24 05/12/24 Previous Rx's Medication Instructions Recorded ECONOMY KNEE BRACE RIGHT #1 ea 03/27/23 hydroxychloroquine 200 mg tablet 200 mg PO BID #180 tabs 09/24/23 leflunomide 20 mg tablet 20 mg PO DAILY #30 tabs 09/24/23 etanercept 50 mg/mL (1 mL) 50 mg SUBCUT .Q7days #4 mL 03/20/24 subcutaneous syringe (Enbrel) cephalexin 500 mg capsule 500 mg PO TID 7 days #21 caps 05/12/24 Allergies Allergy/AdvReac Type Severity Reaction Status Date / Time minocycline Allergy Severe severe Verified 04/15/24 14:13 hives, jiont swelling vancomycin Allergy Severe red man Verified 04/15/24 14:13 syndrome Penicillins Allergy Intermediate ALGY-Hives Verified 04/15/24 14:13 sulfamethoxazole Allergy Mild fine white Verified 04/15/24 14:13 [From Bactrim] rash/ itching trimethoprim [From Bactrim] Allergy Mild fine white Verified 04/15/24 14:13 rash/ itching amoxicillin Allergy hives Verified 04/15/24 14:13 steroids Allergy ADR-Headach Uncoded 04/15/24 14:13 e Review of Systems 2 General: Reports: 10 or more systems reviewed and unremarkable except in HPI and below Const: Denies: fever(s), chills, change in appetite, change in weight or diaphoresis ENMT: Denies: throat pain or hoarseness Card: Denies: chest pain, palpitations or lightheadedness Resp: Denies: dyspnea, productive cough or wheezing GI: Reports: abdominal pain, nausea and vomiting; Denies: diarrhea, constipation, bloating, change in stool character or hematochezia : Reports: flank pain and urinary urgency; Denies: difficulty voiding, dysuria, urinary frequency or hematuria Musc: Denies: neck pain or back pain Skin/Breast: Denies: rash or new lesions Neuro: Denies: headache(s) or dizziness PFSH ED 2 PFSH: Medical History Immunization counseling Seronegative rheumatoid arthritis of both hands Shortness of breath High risk medication use Anxiety Depression Chronic migraine Inflammatory arthritis Palpitation Allergy to multiple antibiotics Failure of outpatient treatment Tachycardia Pneumonia RAYNE positive Surgical History H/O tubal ligation [place] teeth removed History of hysterectomy 2020 History of colonoscopy 2020 Family History Mother Diabetes pre-stage Arthritis Denies family history of Colon cancer Ovarian cancer Clotting disorder Heart disease Hyperlipidemia Breast cancer Suicide Bleeding disorder Hypertension Uterine cancer Stroke Social History Smoking and tobacco/nicotine status: never used tobacco/nicotine Alcohol intake: current Alcohol intake frequency: few times a week Alcohol type: wine and hard liquor Substance/Drug Use: never Lives independently: Yes Household members: spouse and children Marital status: Physical Exam 2 Const: COMMON NORMALS: patient oriented x3, no limitations, alert and well nourished GENERAL APPEARANCE: cooperative ORIENTATION/CONSCIOUSNESS: Yes awake OTHER: Appearing in moderate distress secondary to the pain, in position at time of examination Eye: COMMON NORMALS: Equal, round and reactive pupils present, EOMs intact bilaterally, conjunctivae normal and normal visual bishop by confrontation C ONJUNCTIVA: Yes conjunctivae normal PUPIL: Yes Equal, round and reactive pupils present Neck/C-Spine: COMMON NORMALS: full ROM, supple, no meningeal signs and no JVD Resp: COMMON NORMALS: normal respiratory effort, No retractions, No use of accessory muscles and clear to auscultation bilaterally AUSCULTATION: clear to auscultation bilaterally, no crackles, no rales, no rhonchi and no wheezes Cardio: COMMON NORMALS: no JVD, regular rate, regular rhythm, S1 normal heart sound present, S2 normal heart sound present, No gallops present (Cardio), No clicks present (Cardio), No murmurs present (Cardio), No rub (Cardio) and Peripheral pulses 2+ throughout RATE: regular rate RHYTHM: regular rhythm HEART SOUNDS: S1 normal heart sound present and S2 normal heart sound present PERIPHERAL PULSES: Peripheral pulses 2+ throughout GI: COMMON NORMALS: Normal to inspection, nondistended, normoactive bowel sounds present, Soft to palpation, non-tender, No hepatosplenomegaly present and no masses AUSCULTATION: Yes normoactive bowel sounds PALPATION: Yes Soft to palpation, No Guarding due to palpation present (GI), No Rigid due to palpation and Yes No hepatosplenomegaly present RECTAL EXAM: deferred : BLADDER/KIDNEY EXAM: Yes CVA tenderness on the right Back/Pelvis: GENERAL BACK: Yes CVA tenderness OTHER: Right flank tenderness to palpation Extremity: COMMON NORMALS: normal to inspection and full ROM Neuro: COMMON NORMALS: patient oriented x3, moves all extremities, no focal motor deficits and no sensory deficits noted SENSORIUM/ORIENTATION: Yes alert MENINGEAL SIGNS: Yes no meningeal signs Psych: COMMON NORMALS: mental status grossly normal, cooperative and speech normal SPEECH: Yes normal speech Skin: COMMON NORMALS: no rashes or lesions noted GENERAL SKIN EXAM: no rashes or lesions noted Course 2 Vital Signs: Vital signs: Vital Signs Temperature 97.7 F 05/23/24 23:51 Pulse Rate 82 05/23/24 23:51 Respiratory Rate 21 H 05/23/24 23:51 Blood Pressure 152/86 05/23/24 23:51 Pulse Oximetry 99 05/23/24 23:51 Oxygen Delivery Me thod Room Air 05/23/24 23:51 MDM - Abdominal Pain Medical Decision Making Patient presented for the second time this evening. I saw her earlier for urgency with urination, diagnosed with ureterolithiasis, no obstructing stones and no infectious stones. She was already on tramadol, Zofran, and Flomax at home and she was discharged home with referral to urology. She presented back a couple hours later as the pain had came on very quickly, 10 out of 10 severe pain. Labs were repeated and stable, aside from a urine now showing quite a bit of red blood cells. There was again no infection in her urine and her kidney function was normal. She also notes complete improvement of her pain after receiving Dilaudid through IV along with Reglan for her nausea. After a period of observation she feels comfortable with being discharged home and following up with urology again. Patient discharged home at this time. Lab Data 05/24/24 00:14 05/24/24 00:14 Labs/Radiology: Laboratory Results WBC 11.08 10^3/uL (3.29-11.43) 05/24/24 00:14 RBC 4.57 10^6/uL (3.85-5.65) 05/24/24 00:14 Hgb 13.00 g/dL (11.27-16.99) 05/24/24 00:14 Hct 39.8 % (36-47) 05/24/24 00:14 MCV 87.1 fl (85-98) 05/24/24 00:14 MCH 28.4 pg (27-33) 05/24/24 00:14 MCHC 32.7 g/dL (30-55) 05/24/24 00:14 RDW 12.3 % (12.1-15.1) 05/24/24 00:14 Plt Count 248 10^3/cmm (157-399) 05/24/24 00:14 MPV 10.2 fL (7.4-10.4) 05/24/24 00:14 Neut % (Auto) 69.7 % 05/24/24 00:14 Lymph % (Auto) 21.3 % 05/24/24 00:14 [place] % (Auto) 6.5 % 05/24/24 00:14 Eos % (Auto) 1.8 % 05/24/24 00:14 Baso % (Auto) 0.5 % 05/24/24 00:14 Neut # (Auto) 7.72 10^3/uL (1.8-7.7) H 05/24/24 00:14 Lymph # (Auto) 2.4 10^3/uL (0.8-4.8) 05/24/24 00:14 [place] # (Auto) 0.7 10^3/uL (0.2-0.9) 05/24/24 00:14 Eos # (Auto) 0.2 10^3/uL (0.0-0.8) 05/24/24 00:14 Baso # (Auto) 0.1 10^3/uL (0.0-0.1) 05/24/24 00:14 Nucleated RBC % (auto) 0 % 05/24/24 00:14 Nucleated RBCs # 0.0 /100WBC 05/24/24 00:14 Sodium 139 mmol/L (136-145) 05/24/24 00:14 Potassium 3.6 mmol/L (3.5-5.1) 05/24/24 00:14 Chloride 103 mmol/L (98-107) 05/24/24 00:14 Carbon Dioxide 26 mmol/L (22-29) 05/24/24 00:14 Anion Gap 13.6 (5-19) 05/24/24 00:14 BUN 11 mg/dL (6-20) 05/24/24 00:14 Creatinine 0.6 mg/dL (0.5-0.9) 05/24/24 00:14 GFR Calculation 113.8 mL/min (90-130) 05/24/24 00:14 Glucose 144 mg/dL (65-115) H 05/24/24 00:14 Calculated Osmolality 290 mOsm/kg (285-295) 05/24/24 00:14 Calcium 9.4 mg/dL (8.5-10.5) 05/24/24 00:14 Total Bilirubin 0.4 mg/dL (0.15-1.2) 05/24/24 00:14 AST 24 U/L (0-32) 05/24/24 00:14 ALT 26 U/L (0-33) 05/24/24 00:14 Alkaline Phosphatase 68 U/L (35-105) 05/24/24 00:14 Total Protein 7.2 g/dL (6.6-8.7) 05/24/24 00:14 Albumin 4.6 g/dL (3.5-5.2) 05/24/24 00:14 Globulin 2.6 g/dL (1.3-4.6) 05/24/24 00:14 Lipase 16 U/L (13-60) 05/24/24 00:14 HCG, Qual Negative (Negative) 05/24/24 00:14 Urine Color Yellow (Yellow) 05/24/24 00:24 Urine Appearance Cloudy (CLEAR) A 05/24/24 00:24 Urine pH 5.5 (5-7) 05/24/24 00:24 Ur Specific [place] 1.023 (1.005-1.030) 05/24/24 00:24 Urine Protein Trace (Negative) A 05/24/24 00:24 Urine Glucose (UA) Negative (Normal) 05/24/24 00:24 Urine Ketones Trace (Negative) 05/24/24 00:24 Urine Blood 3+ (Negative) A 05/24/24 00:24 Urine Nitrate Negative (Negative) 05/24/24 00:24 Urine Bilirubin Negative (Negative) 05/24/24 00:24 Urine Urobilinogen 0.2 mg/dL (Negative) 05/24/24 00:24 Ur Leukocyte Esterase Negative (Negative) 05/24/24 00:24 Urine RBC >100 /hpf (0-2) H 05/24/24 00:24 Urine WBC 0-5 /hpf (0-5) 05/24/24 00:24 Ur Squamous Epith Cells 0-5 /hpf (0-5) 05/24/24 00:24 Amorphous Sediment Not Reportable 05/24/24 00:24 Urine Bacteria Trace /hpf (NONE) 05/24/24 00:24 Hyaline Casts 5.77 /lpf 05/24/24 00:24 Urine Mucus 3+ /hpf 05/24/24 00:24 No radiology studies performed this visit Discharge Plan Discharge Patient Disposition: Home Clinical Impression: Ureterolithiasis Condition: Stable Prescriptions: No Action (DME) ECONOMY KNEE BRACE RIGHT See Rx Instructions .Route .MEDSUPPLY Qty: 1 0RF Rx Instructions: As directed leflunomide 20 mg tablet 20 mg PO DAILY Qty: 30 5RF Hold Instructions: Doctor's Order hydroxychloroquine 200 mg tablet 200 mg PO BID Qty: 180 1RF amitriptyline 10 mg tablet 10 mg PO DAILY propranolol 20 mg tablet 20 mg PO BID folic acid 800 mcg tablet 0.8 mg PO DAILY cholecalciferol (vitamin D3) [Vitamin D3] 125 mcg (5,000 unit) tablet 125 mcg PO DAILY cephalexin 500 mg capsule 500 mg PO TID 7 Days Qty: 21 0RF Enbrel 50 mg/mL (1 mL) syringe 50 mg SUBCUT .Q7days Qty: 4 4RF ibuprofen [Advil] 200 mg Tablet 600 mg PO Q6H PRN (Reason: Pain) spironolactone 25 mg Tablet 25 mg PO DAILY Trulicity 0.75 mg/0.5 mL Pen Injector 0.75 mg SUBCUT Q7D Rx Instructions: ON SUNDAY Discharge Orders: Discharge ED (Routine); Ordered 05/24/24 Ordered By: Jose J Kennedy Referrals: Heidi Spangler PA [Primary Care Provider] - Activity Restrictions/Additional Instructions: Return if you have any significantly worsening pain, severe nausea/vomiting, onset of fevers, or other concerning symptoms you may have. Continue taking pain medications you have prescribed. Follow-up with urology. Coding Level of Care Code ED De Ionizer Operator for Maxine Mcgee
[2024-05-24 00:18] LABS: Basophils # 0.1 10^3/uL (0.0-0.1); Basophils % 0.5 %; Eosinophils # 0.2 10^3/uL (0.0-0.8); Eosinophils % 1.8 %; Hematocrit 39.8 % (36-47); Lymphocytes # 2.4 10^3/uL (0.8-4.8); Lymphocytes % 21.3 %; Mean Corpuscular HGB Conc 32.7 g/dL (30-55); Mean Corpuscular Hemoglobin 28.4 pg (27-33); Mean Corpuscular Volume 87.1 fl (85-98); Mean Platelet Volume 10.2 fL (7.4-10.4); Monocytes # 0.7 10^3/uL (0.2-0.9); Monocytes % 6.5 %; Neutrophils # 7.72 10^3/uL (1.8-7.7); Neutrophils % 69.7 %; Nucleated Red Blood Cells % 0 %; Platelet Count 248 10^3/cmm (157-399); Red Blood Count 4.57 10^6/uL (3.85-5.65); Red Cell Distribution Width 12.3 % (12.1-15.1); White Blood Count 11.08 10^3/uL (3.29-11.43)
[2024-05-24] MEDS: HYDROmorphone 1 mg/mL INJ 1 mL IVP ×2 (00:22→01:12)
[2024-05-24] MEDS: metoclopramide 5 mg/mL SDV 2 mL 10 MG IVP (00:22)
[2024-05-24 00:30] LABS: Bilirubin Urine Negative (Negative); Blood Urine 3+ (Negative); Glucose Urine UA Negative (Normal); Ketones Urine Trace (Negative); Leukocyte Esterase Urine Negative (Negative); Nitrate Urine Negative (Negative); Protein Urine Trace (Negative); Specific Gravity, Urine 1.023 (1.005-1.030); Urine Appearance Cloudy (CLEAR); Urine Color Yellow (Yellow); Urobilinogen Urine 0.2 mg/dL (Negative); pH Urine 5.5 (5-7)
[2024-05-24 00:33] LABS: HCG, Serum Qual Negative (Negative)
[2024-05-24 00:35] LABS: Alanine Aminotransferase 26 U/L (0-33); Anion Gap 13.6 (5-19); Aspartate Amino Transferase 24 U/L (0-32); Blood Urea Nitrogen 11 mg/dL (6-20); Calcium 9.4 mg/dL (8.5-10.5); Carbon Dioxide 26 mmol/L (22-29); Chloride 103 mmol/L (98-107); Creatinine Clr Calc Pharmacy 148.9987; Glomerular Filtration Rate 113.8 mL/min (90-130); Glucose 144 mg/dL (65-115); Osmolality Calculated 290 mOsm/kg (285-295); Potassium 3.6 mmol/L (3.5-5.1); Sodium 139 mmol/L (136-145); Total Bilirubin 0.4 mg/dL (0.15-1.2)
[2024-05-24 00:35] LABS: Add Urine Microscopic? YES; Bacteria Urine Trace /hpf; Hyaline Casts Urine 5.77 /lpf; RBC Urine >100 /hpf (0-2); Squamous Epithelial Cell Urine 0-5 /hpf (0-5); Universal Test for UA Present (0); WBC Urine 0-5 /hpf (0-5)
[2024-05-24 00:36] LABS: Albumin Level 4.6 g/dL (3.5-5.2); Alkaline Phosphatase 68 U/L (35-105); Globulin 2.6 g/dL (1.3-4.6); Lipase 16 U/L (13-60); Total Protein 7.2 g/dL (6.6-8.7)
[2024-05-24 00:46] LABS: Add Urine Culture? Yes; Mucus Urine 3+ /hpf
[2024-05-24 01:51] VITALS: BP 138/76; PULSE 68; O2SAT 99
== END 2024-05-24 01:51 | disposition home or self-care (01) ==
PROVIDERS: Emergency Provider Physician Assistant; PCP Physician Assistant
DX: N20.1 Calculus of ureter (principal)
CPT/HCPCS: 80053; 81001; 83690; 84703; 85025; 87086; 96374; 96375; 96376; 99284; J1171; J2765

== ENCOUNTER → 2024-09-03 11:08 | Outpatient (BNVA) | payer BC, MEDICAID, SELFPAY | PROVIDERS: PCP Physician Assistant; Visit Provider Physician Assistant | DX: M17.11 Unilateral primary osteoarthritis, right knee (principal); M23.305 Other meniscus derangements, unspecified medial meniscus, unspecified knee | CPT/HCPCS: 73560; 73565 ==

== ENCOUNTER → 2024-10-06 10:26 | Outpatient (BNVA) | payer BC, MEDICAID, SELFPAY | PROVIDERS: PCP Physician Assistant; Visit Provider Internal Medicine | DX: R13.10 Dysphagia, unspecified (principal); E04.2 Nontoxic multinodular goiter; M06.041 Rheumatoid arthritis without rheumatoid factor, right hand; M06.042 Rheumatoid arthritis without rheumatoid factor, left hand; Z79.899 Other long term (current) drug therapy | CPT/HCPCS: 36415; 80076; 82565; 84439; 84443; 84480; 85025; 85651; 86140 ==

== ENCOUNTER 2024-10-17 14:03 | Outpatient (CLI) | payer BC, MEDICAID, SELFPAY ==
--- NOTE | 2024-10-17 14:15 | US_ITS ---
WS: [id number] THYROID ULTRASOUND HISTORY: Nodule. COMPARISON: 07/27/2023 Right lobe: 1.7 cm x 1.7 cm x 4.5 cm (w x ap x l). Volume: 6.3 cm3. Normal size thyroid. Cyst superior pole measures 1.0 x 0.6 x 1.0 cm. Cystic nodule has been previously described without significant increase in size. No new solid mass or increased vascularity. Left lobe: 1.8 cm x 1.7 cm x 4.0 cm (w x ap x l). Volume: 5.9 cm3. Normal sized gland. Scattered colloid cyst. No mass. Isthmus: 0.4 cm. US/US thyroid [id number] IMPRESSION: TI-RADS 2; no biopsy recommended. Stable thyroid nodules.
== END 2024-10-17 14:04 | disposition home or self-care (01) ==
PROVIDERS: PCP Physician Assistant; Visit Provider Internal Medicine
DX: R13.10 Dysphagia, unspecified (principal); E04.2 Nontoxic multinodular goiter
CPT/HCPCS: 76536

== ENCOUNTER 2024-11-05 07:06 | Outpatient (CLI) | payer BC, MEDICAID, SELFPAY ==
--- NOTE | 2024-11-05 07:15 | MR_ITS ---
WS: [id number] MRI RIGHT KNEE HISTORY: derangement of knee COMPARISON: 11/16/2022 Anterior cruciate ligament: Intact. Posterior cruciate ligament: Intact. Medial collateral ligament: Very slight displacement of the MCL from the joint line by a minimally extruded meniscus. Similar to the prior exam. Posterior lateral corner structures: Intact. Medial menisci: Abnormal signal throughout majority of the posterior horn. There is central globular signal which extends to the superior articular surface. This may be postsurgical in etiology after repair of the meniscus. New horizontal line through the anterior horn just beneath the superior articular surface. There is an additional vertical area of increased T2 signal seen only on the coronal T2 fat-saturated sequence through the free edge of the posterior horn which is highly suspicious for radial tear. This was also not present on the prior study. Lateral meniscus: Intact. Normal signal, size and shape. Extensor mechanism: Distal quadriceps tendon and patellar tendons are intact. Fluid and soft tissue: No joint effusion. No Jarquin's cyst. Osseous and articular structures: Patellofemoral compartment: Normal. Medial compartment: Very mild narrowing of the medial compartment. No marrow edema. Lateral compartment: Normal. New, well-circumscribed nodule measuring 6.8 mm which is low signal on all sequences. This is located along the inferior ACL surrounded by fluid. Not definitely seen on the prior study. Suspicious for an intra-articular body which may be a meniscal fragment. MR/MR knee RT wo con* [id number] IMPRESSION: 1. Normal ACL. 2. New abnormal signal throughout the medial meniscus. Horizontal line through the anterior horn just beneath the superior tickler surface is highly suspicio us for new horizontal tear. 3. Additional vertical signal in the posterior horn towards the free edge cons istent with a radial tear. This is also new. 4. Additional globular signal within the central posterior horn medial meniscu s is probably postoperative repair of a prior tear. 5. Suspect intra-articular body which may be a meniscal fragment closely assoc iated with the distal ACL/intercondylar notch.
== END 2024-11-05 07:07 | disposition home or self-care (01) ==
PROVIDERS: PCP Physician Assistant; Visit Provider Physician Assistant
DX: M17.11 Unilateral primary osteoarthritis, right knee (principal); M23.303 Other meniscus derangements, unspecified medial meniscus, right knee; R93.6 Abnormal findings on diagnostic imaging of limbs
CPT/HCPCS: 73721

== ENCOUNTER → 2024-12-17 12:44 | Outpatient (BNVA) | payer BC, SELFPAY | PROVIDERS: PCP Physician Assistant; Visit Provider Internal Medicine Rheumatology | DX: Z79.899 Other long term (current) drug therapy (principal) | CPT/HCPCS: 36415; 86480; 86704; 86803; 87340 ==

== ENCOUNTER 2024-12-23 14:03 | Emergency (ER) | payer BC, MEDICAID, SELFPAY ==
--- OUTSIDE RECORDS SUMMARY | 2003-06-03 19:00 | XMS_ITS | Continuity of Care Document ---
Author Name [facility] Address [address] [place] [address] Organization Critical access hospital Care Team Providers Care Pediatric Urologist Name Role Phone [facility] Unavailable Unavailable Problems Problem Status Onset Date Problem Type Date of Resolution Comme nts Source Migraine (disorder) Active Condition Allergies, Adverse Reactions, Alerts Substance Category Reaction Severity Reaction type Status Date Reported Comments Source minocycline Assertion Drug allergy Active [facility] vancomycin Assertion Drug allergy Active [facility] penicillins Assertion Drug allergy Active [facility] Bactrim Assertion Drug allergy Active [facility]
[2024-12-23] VITALS (7 sets, daily range): BP systolic 130–148; BP diastolic 72–99; PULSE 96–114; RESP 16–17; TEMP 36.7; O2SAT 95–97
--- OUTSIDE RECORDS SUMMARY | 2024-12-23 14:09 | XMS_ITS | Data Portability ---
Author Organization KODI [facility] Lakshmi Norris, [facility] Address [address] [address] Care Team Providers Care Erp Project Manager Name Role Phone SPANGLERHEIDI Primary Care Provider ALBERTO Whatley Cue Worker Assessment Encounter Date Assessment Date Assessment LastModified by Organization Details LastModified Time 05/23/2024 05/23/2024 Sent to ER for work up. No charge. [email or web address] Not available 05/23/2024 18:06:56 Plan of Treatment Reminders Order Date Submit Date Provider Last Modified By Organization Details Last Modified Time Details Appointments None recorded. Lab hemoglobin A1C/hemoglo bin total, QN, blood 2024 025 [facility] [address], [address], [place], [address], 13:40:57 CMP, serum or plasma 2024 025 [facility], [address], [address], [place], [address], 14:31:25 CBC 2024 025 [facility], [address], [address], [place], [address], 13:41:01 vitamin B12, serum 2024 025 Revel[facility], [address] [facility] [address], [address], [place], [address], 5 06:12:36 vitamin D, 25-hydroxy, total, serum 2024 DON Mir Tesen [facility], [address] [facility] [facility] [address], [address], [place], [address], 5 06:12:37 TSH, serum or plasma 2024 [email or web address], [address], [place], [address], 5 11:53:40 culture, urine 2023 SEARSMONT Mir Tesen [facility], [address] [place] [address] [address], [address], [place], [address], 4 21:38:38 urinalysis, dipstick 2023 024 [facility] ([facility]), [address] [place] [address], [address], 4 11:46:17 Referral None recorded. Procedures None recorded. Surgeries None recorded. Imaging XR, chest, 2 view [address] ([facility]), [address] [place] [address], [address], 5 12:02:59 Medication Orders amitriptyli ne [address] [facility], [address], [place], [address], 5 11:53:42 Mounjaro 5 mg/0.5 mL subcutaneou s pen injector 2024 025 [email or web address] 1 [facility], [address], [place], [address], 5 12:37:18 Mounjaro 7.5 mg/0.5 mL subcutaneou s pen injector [address] [facility], [address], [place], [address], 5 12:37:32 Mounjaro 10 mg/0.5 mL subcutaneou s pen injector 2024 025 [email or web address] 1 [facility] 15, [address], [place], [address], 5 12:37:15 ketorolac 30 mg/mL (1 mL) injection solution 2024 025 [email or web address] 1 Not available 08:50:17 promethazin e 25 mg/mL injection solution 2024 025 [email or web address] 1 Not available 08:50:28 valacyclovi r 1 gram tablet 2024 025 [facility] 15, [address], [place], [address], 5 11:52:01 Flomax 0.4 mg capsule 2023 025 [facility] 15, [address], [place], [address], 5 08:39:05 ondansetron 4 mg disintegrat ing tablet 2023 025 [facility] 15, [address], [place], [address], 5 18:27:04 tramadol 50 mg tablet 2023 024 [email or web address] 1 [facility] 15, [address], [place], [address], 5 20:44:08 Patient TargetsNo targets recorded. Patient InstructionsNo instructions recorded. Reason for Referral None Reported. Results Created Date Observation Date Name Description Value Unit Range Abnormal Flag Note LastModifiedBy Organization Detail LastModifiedTime 05/21/20 24 05/22/2024 CULTU RE, URINE , ROUTI NE culture, urine, routine SEE NOTE CULTU RE, URINE , ROUTI NE Micro Numbe r: [id number] Test Statu s: Final Speci men Sourc e: Urine Speci men Quali ty: Adequ ate Resul t: No Growt h Not Available [address] [address] [place], [address], 05/22/2024 21:38:38 05/21/20 24 05/21/2024 urina lysis , dipst ick Leukocytes Negati ve Not Available [facility] ([facility]) [address] [place] [address], [address], 05/21/2024 11:20:58 05/21/20 24 05/21/2024 urina lysis , dipst ick Nitrite negati ve Not Available [facility] ([facility]) [address] [place], [address], 05/21/2024 11:20:58 05/21/20 24 05/21/2024 urina lysis , dipst ick Urobilinogen .2 Not Available [facility] ([facility]) [address] [place], [address], 05/21/2024 11:20:58 05/21/20 24 05/21/2024 urina lysis , dipst ick Protein 100 Not Available [facility] ([facility]) [address] [place], [address], 05/21/2024 11:20:58 05/21/20 24 05/21/2024 urina lysis , dipst ick pH 6.0 Not Available [facility] ([facility]) [address] [place], [address], 05/21/2024 11:20:58 05/21/20 24 05/21/2024 urina lysis , dipst ick Blood Large Not Available [facility] ([facility]) [address] [place], [address], 05/21/2024 11:20:58 05/21/20 24 05/21/2024 urina lysis , dipst ick Specific Morton 1.030 Not Available [facility] ( [facility]) [address] [place], [address], 05/21/2024 11:20:58 05/21/20 24 05/21/2024 urina lysis , dipst ick Ketone Negati ve Not Available [facility] ([facility]) [address] [place], [address], 05/21/2024 11:20:58 05/21/20 24 05/21/2024 urina lysis , dipst ick Bilirubin Negati ve Not Available [facility] ([facility]) [address] [place], [address], 05/21/2024 11:20:58 05/21/20 24 05/21/2024 urina lysis , dipst ick Glucose Negati ve Not Available [facility] ([facility]) [address] [place], [address], 05/21/2024 11:20:58 05/21/20 24 05/21/2024 urina lysis , dipst ick Appearance Clear Not Available [facility] ( [facility]) [address] [place], [address], 05/21/2024 11:20:58 05/21/20 24 05/21/2024 urina lysis , dipst ick Color Dark Yellow Not Available [facility] ([facility]) [address] [place], [address], 05/21/2024 11:20:58 12/10/19 25 12/09/2024 HBA1C hemaglobin A1C 5.3 4.2-6. 5 Not Available [facility] [address] [facility] Radha [facility] 1, [place], [address], 12/09/2024 13:40:57 12/10/19 25 12/09/2024 CBC WBC 7.8 x10 4.0-10 .5 Not Available [facility] [address] [facility] Radha [facility] 1, [place], [address], 12/09/2024 13:41:01 12/10/19 25 12/09/2024 CBC RBC 4.65 x10 3.50-5 .50 Not Available [facility] [address] [facility] Radha [facility] 1, [place], [address], 12/09/2024 13:41:01 12/10/19 25 12/09/2024 CBC HGB 13.7 g/dL 12.0-1 6.0 Not Available [facility] [address] [facility] Radha [facility] 1, [place], [address], 12/09/2024 13:41:01 12/10/19 25 12/09/2024 CBC HCT 41.8 % 37.0-4 7.0 Not Available [facility] [address] [facility] Radha [facility] 1, [place], [address], 12/09/2024 13:41:01 12/10/19 25 12/09/2024 CBC MCV 89.8 fL 80.0-9 9.9 Not Available [facility] [address] [facility] 1, [place], [address], 12/09/2024 13:41:01 12/10/19 25 12/09/2024 CBC MCH 29.4 pg 27.0-3 2.0 Not Available [facility] [address] [facility] 1, [place], [address], 12/09/2024 13:41:01 12/10/19 25 12/09/2024 CBC MCHC 32.7 g/dL 32.0-3 6.0 Not Available [facility] [address] [facility] 1, [place], [address], 12/09/2024 13:41:01 12/10/19 25 12/09/2024 CBC RDW 13.4 % 11.5-1 4.5 Not Available [facility] [address] [facility] 1, [place], [address], 12/09/2024 13:41:01 12/10/19 25 12/09/2024 CBC plt 232.7 x10 140.0- 451.0 Not Available [facility] [address] [facility] 1, [place], [address], 12/09/2024 13:41:01 12/10/19 25 12/09/2024 CBC lymphocytes % 36.6 % 20.0-5 0.0 Not Available [facility] [address] [facility] 1, [place], [address], 12/09/2024 13:41:01 12/10/1912/09/2024 CBC granulcytes % 53.6 % 30.0-7 0.0 Not Available [facility] [address] [facility] 1, [place], [address], 12/09/2024 13:41:01 12/10/19 25 12/09/2024 CBC monocytes % 7.6 % 2.0-16 .0 Not Available [facility] [address] [facility], [place], [address], 12/09/2024 13:41:01 12/10/19 25 12/09/2024 CBC granulcytes# 4.2 x10 Not Rosario ilable [facility] [address] [facility] [facility] [address], [place], [address], 12/09/2024 13:41:01 12/10/19 25 12/09/2024 CBC lymphocytes # 2.9 x10 Not Available [facility] [address] [address], [place], [address], 12/09/2024 13:41:01 12/10/19 25 12/09/2024 CBC monocytes # 0.6 x10 Not Avai lable [facility] [address] [address], [place], [address], 12/09/2024 13:41:01 12/10/19 25 12/09/2024 CMP (FEMA LE) glucose 86.0 mg/dL 60.0-9 9.0 Not Available [facility] [address] [address], [place], [address], 12/09/2024 14:31:25 12/10/19 25 12/09/2024 CMP (FEMA LE) BUN (blood urea nitrogen) 11.0 mg/dL 10.0-2 6.0 Not Available [facility] [address] [facility] [address] [address], [place], [address], 12/09/2024 14:31:25 12/10/1912/09/2024 CMP (FEMA LE) creatinine (serum) 0.5 mg/dL 0.4-1. 5 Not Available [facility] [address] [facility] [address] [address], [place], [address], 12/09/2024 14:31:25 12/10/19 25 12/09/2024 CMP (FEMA LE) BUN/creatini ne ratio 22.00 ratio Not Available [facility] [address] [facility] 1, [place], [address], 12/09/2024 14:31:25 12/10/19 25 12/09/2024 CMP (FEMA LE) eGFR calculated 148.4 Not Available [facility] [address] [facility], [place], [address], 12/09/2024 14:31:25 12/10/1912/09/2024 CMP (FEMA LE) total protein 7.9 g/dL 6.0-8. 5 Not Available [facility] [address] [facility] 1, [place], [address], 12/09/2024 14:31:25 12/10/1912/09/2024 CMP (FEMA LE) total bilirubin 0.7 mg/dL 0.2-1. 3 Not Available [facility] [address] [facility], [place], [address], 12/09/2024 14:31:25 12/10/1912/09/2024 CMP (FEMA LE) albumin 4.7 g/dL 3.5-5. 5 Not Available [facility] [address] [facility] 1, [place], [address], 12/09/2024 14:31:25 12/10/1912/09/2024 CMP (FEMA LE) globulin 3.2 calc Not Available [facility] [address] [facility] Radha [facility] 1, [place], [address], 12/09/2024 14:31:25 12/10/19 25 12/09/2024 CMP (FEMA LE) AST (SGOT) 26.0 U/L 0.0-46 .0 Not Available [facility] [address] [facility] 1, [place], [address], 12/09/2024 14:31:25 12/10/1912/09/2024 CMP (FEMA LE) altv (SGPT) 31.0 U/L 13.0-6 9.0 normal Not Available [facility] [address] [facility] 1, [place], [address], 12/09/2024 14:31:25 12/10/1912/09/2024 CMP (FEMA LE) A/G ratio 1.[address] [facility] [address] [facility] 1, [place], [address], 12/09/2024 14:31:25 12/10/1912/09/2024 CMP (FEMA LE) ALP phos 53.0 U/L 30.0-1 40.0 normal Not Available [facility] [address] [facility] 1, [place], [address], 12/09/2024 14:31:25 12/10/1912/09/2024 CMP (FEMA LE) calcium 9.3 mg/dL 8.4-10 .5 Not Available [facility] [address] [facility] 1, [place], [address], 12/09/2024 14:31:25 12/10/1912/09/2024 CMP (FEMA LE) sodium 140.0 mmol/ L 136.0- 145.0 Not Available [facility] [address] [facility] 1, [place], [address], 12/09/2024 14:31:25 12/10/1912/09/2024 CMP (FEMA LE) potassium 3.9 mmol/ L 3.5-5. 1 Not Available [facility] [address] [facility], [place], [address], 12/09/2024 14:31:25 12/10/1912/09/2024 CMP (FEMA LE) chloride 103.0 mmol/ L 98.0-1 10.0 normal Not Available [facility] [address] [facility] 1, [place], [address], 12/09/2024 14:31:25 12/10/1912/09/2024 CMP (FEMA LE) C02 28.0 mmol/ L 22.0-3 1.0 Not Available [facility] [address] [facility] 1, [place], [address], 12/09/2024 14:31:25 12/10/1912/09/2024 CMP (FEMA LE) anion gap 9.0 calc Not Available [facility] [address] [facility] 1, [place], [address], 12/09/2024 14:31:25 12/10/1912/09/2024 CMP (FEMA LE) osmolality 288.0 calc Not Available [facility] 805 [facility] 1, [place], [address], 12/09/2024 14:31:25 12/10/1912/09/2024 TSH TSH 0.52 uIU/m L 0.49-3 .82 Not Available [facility] 805 [facility], [place], [address], 12/09/2024 14:31:37 12/10/1912/10/2024 VITAM IN B12 vitamin B12 307 pg/mL 200-11 00 normal Pleas e Note: Altho ugh the refer ence range for vitam in B12 is 200-1 100 pg/mL , it has been repor daniel that betwe en 5 and 10% of patie nts with value s betwe en 200 and 400 pg/mL may exper ience neuro psych iatri c and hemat ologi c abnor malit ies due to occul t B12 defic iency ; less than 1% of patie nts with value s above 400 pg/mL will have sympt oms. Not Available [email or web address] [address] [place], [address], 12/10/2024 06:12:36 12/10/1912/10/2024 VITAM IN D,25- OH,TO VIKA,I A vitamin D,25-oh,tota l,ia 28 NG/mL 30-100 low Vitam in D Statu s 25-OH Vitam in D: Defic iency : <20 ng/mL Insuf ficie ncy: 20 - 29 ng/mL Optim al: > or = 30 ng/mL For 25-OH Vitam in D testi ng on patie nts on D2-george pplem entat ion and patie nts for whom quant itati on of D2 and D3 fract ions is requi red, the [employer] Assur eD(TM ) 25-OH VIT D, (D2,D 3), LC/MS /MS is recom ginny d: order code 70358 (clovis ents >2yrs ). See Note 1 Note 1 For addit ional infor javier greenfield refer to http: //cornell torrez.Orestes stDia gnost ics.c om/fa q/FAQ 199 (This link is being provi ded for infor kathryn bacon/ marc mahajan purpo ses only. ) Not Available [email or web address] [address], [place], [address], 12/10/2024 06:12:37 05/29/20 24 05/27/2024 home sleep study No observ ation record ed. [email or web address] [facility] [address] [place] [address], [facility] [address], [address], 06/03/2024 16:10:11 05/29/20 24 05/27/2024 home sleep study No observ ation record ed. [address] [facility], [facility] [address], [address], 06/03/2024 16:10:12 08/15/19 25 08/14/2024 XR, chest , 2 view No observ ation record ed. [address] ([facility]) [address] [place], [address], 08/14/2024 12:01:04 08/15/19 25 08/14/2024 XR, chest , 2 view No observ ation record ed. [address] ([facility]) [address] [place], [address], 08/18/2024 14:42:17 09/05/19 25 05/29/2024 home sleep testi ng (PROC ) No observ ation record ed. [email or web address] Not Available 09/05 09:10:22 Result Notes None recorded. Problems Name Problem SNOMED Code Status Onset Date Resolution Date Notes Provider Name and Address Organization Details Recorded Time Polycystic ovary syndrome 471269965 Active 2021 PCOS (POLYCYSTI C OVARIAN SYNDROME); Recorded 03/09/2022 1:20PM by Lana Bermudez LPN, Office Visit; Promoted; acuity set as *; KODI Price [facility] Lakshmi Norris 20:44:57 Obesity 947184233 Active 2021 CLASS 2 OBESITY WITH BODY MASS INDEX (BMI) OF 38.0 TO 38.9 IN ADULT; Recorded 03/09/2022 1:20PM by Lana Bermudez LPN, Office Visit; Promoted; acuity set as *; OBESITY (BMI 30-39.9); Recorded 03/09/2022 1:20PM by Lana Bermudez LPN, Office Visit; Promoted; acuity set as *; LANA bowden [place] [facility], Lakshmi 5 20:44:46 Bipolar II disorder 28548056 Active 2021 BIPOLAR II DISORDER, MOST RECENT EPISODE HYPOMANIC; Recorded 03/09/2022 1:20PM by Lana Bermudez LPN, Office Visit; Promoted; acuity set as *; LANA bowden [employer], Lakshmi 5 20:44:27 Pain of multiple joints 89712879 Active 2021 POLYARTHRA LGIA; Recorded 03/09/2022 1:20PM by Lana Bermudez LPN, Office Visit; Promoted; acuity set as *; LANA bowden [employer], Lakshmi 20:44:43 Refractory migraine with aura 013301661 Active 2021 INTRACTABL E MIGRAINE WITH AURA WITHOUT STATUS MIGRAINOSU S; Recorded 03/09/2022 1:20PM by Lana Bermudez LPN, Office Visit; Promoted; acuity set as *; LANA bowden [employer], GeorgetteLRodo 5 14:13:17 Vitamin D deficiency 38184113 Active 2021 VITAMIN D DEFICIENCY ; Recorded 03/28/2022 9:52AM by Lana Bermudez LPN, Historical Summary; Promoted; acuity set as *; LANA bowden [employer], Lakshmi 5 20:45:06 Finding of palpation of heart 224547704 Active 2022 LANA bowden [employer], GeorgetteLFelipeCFelipe 5 20:44:39 Chronic headache disorder 444745540 Active 2023 LANA bowden [employer], Lakshmi 5 20:44:36 Type 2 diabetes mellitus 26585977 Active 2023 LANA HAEFFNER [facility], L.LFelipeCFelipe 5 20:45:03 Obstructiv e sleep apnea syndrome 82251516 Active 2023 LANA BERMUDEZ [facility], LFelipeLFelipeCFelipe 5 20:44:50 Problem Notes None recorded. Procedures Surgical History Date Name Laterality Status Provider Name and Address Organization Details Recorded Time 01/03/20 21 Tubal Ligation completed [facility], L.L.CFelipe 01/08/2024 09:37:53 01/03/20 21 Partial Hysterectomy completed [facility], LFelipeLFelipeCFelipe 01/08/2024 09:38:03 Imaging Results None recorded. Procedure Notes None recorded. Medical Equipment None Reported. Allergies Allergen ID Allergen Name Allergen Category Reaction Reaction Severity Criticality Documentation Date Start Date Code Code System Note Provider Name and Address Organization Details Recorded Time 3190 vancomyci n medicatio n pleitez-j ohnson syndrome severe high 10/18/2022 68771 RxNorm [facility], L.L.CFelipe 4 09:28:18 00761 amoxicill in medicatio n rash mild low 12/30/2022 723 RxNorm 20PM by Malvin killian, FACILITIES PAINTER, Offic e Visit ; Promo daniel; Signi em ce: *; Reaso n: Drug aller gy; ; [facility], L.L.CFelipe 4 09:27:41 61558 minocycli ne hydrochlo ride medicatio n hives myalgias (muscle pain) respirato ry distress mild moderate severe high 12/30/2022 6979 RxNorm [facility]C. 4 09:28:01 05961 Product containin g penicilli n (product) medicatio n rash mild low 01/08/2024 86914 8001 SNOMED [facility], Lakshmi 4 09:27:39 82225 Substance with sulfonami de structure and antibacte rial mechanism of action (substanc e) medicatio n rash mild low 01/08/2024 53695 8003 SNCAMILLE Marroquin Francis bowden [employer], Lakshmi 4 09:28:32 Medications Name Sig Start Date Stop Date Status Note LastModified by Organization Details LastModified Time cyclobenz aprine 10 mg tablet TAKE 1 TABLET BY MOUTH THREE TIMES DAILY NEEDED FOR LOW BACK PAIN, MAY CAUSE DROWSINE SS 10/18 completed Not Available Not Available Not Available Flomax 0.4 mg capsule Take 1 capsule every day by oral route for 5 days. 08/11 completed Not Available Not Available Not Available metformin 500 mg tablet Take 1 tablet twice a day by oral route for 30 days. 09/16 completed Not Available Not Available Not Available valacyclo vir 1 gram tablet TAKE 1 TABLET BY MOUTH EVERY 12 HOURS active Not Available Not Available No t Available hydrocodo ne 5 mg-acetam inophen 325 mg tablet TAKE ONE TABLET BY MOUTH EVERY 6 HOURS NEEDED FOR PAIN FOR five DAYS 06/05 completed Not Available Not Available Not Available prochlorp erazine maleate 5 mg tablet TAKE 1 TABLET BY MOUTH EVERY 8 HOURS NEEDED FOR NAUSEA OR HEADACHE 10/18 completed Not Available Not Available Not Available phenazopy ridine 200 mg tablet TAKE 1 TABLET BY MOUTH THREE TIMES DAILY NEEDED 12/09 completed Not Available Not Available Not Available prednison e 20 mg tablet Take 2 tablets every day by oral route for 5 days. 12/27 completed Not Available Not Available Not Available Zithromax Z-Aren 250 mg tablet 2 po today, then one po qd x 4d 12/27 completed Not Available Not Available Not Available Diflucan 150 mg tablet TAKE 1 TABLET BY MOUTH ON DAY 1 THEN REPEAT IN 3 DAYS 06/05 completed Not Available Not Available Not Available valacyclo vir 500 mg tablet TAKE 2 TABLETS BY MOUTH TWICE DAILY FOR 5 DAYS 12/07 completed Not Available Not Available Not Available ciproflox acin 500 mg tablet TAKE ONE TABLET BY MOUTH TWICE DAILY 10/18 completed Not Available Not Available Not Available aspirin 81 mg tablet,de layed release TAKE ONE TABLET BY MOUTH DAILY FOR two WEEKS 06/05 completed Not Available Not Available Not Available leflunomi de 20 mg tablet Take 1 tablet every day by oral route. 04/18 completed Not Available Not Available Not Available tramadol 50 mg tablet Take 1 tablet every 6 hours by oral route as needed. 08/11 completed Not Available Not Available Not Available spironola ctone 25 mg tablet TAKE 1 TABLET BY MOUTH ONCE DAILY active Not Available Not Available No t Available ketorolac 30 mg/mL (1 mL) injection solution Inject 1 mL by intramus cular route. 12/07 completed Not Available Not Available Not Available ondansetr on 8 mg disintegr ating tablet 10/18 completed Not Available Not Available Not Available amitripty line 25 mg tablet TAKE 1 TABLET BY MOUTH ONCE DAILY active Not Available Not Available No t Available methotrex ate sodium 2.5 mg tablet DIRECTED WEEKLY 10/18 completed Not Available Not Available Not Available amitripty line 10 mg tablet TAKE 1 TABLET BY MOUTH ONCE DAILY active Not Available Not Available No t Available Flagyl 500 mg tablet Take 1 tablet every 8 hours by oral route for 7 days. 01/16 completed Not Available Not Available Not Available promethaz ine 25 mg/mL injection solution Take 0.5 mL by injectio n route for 1 day. 12/07 completed Not Available Not Available Not Available divalproe x ER 500 mg tablet,ex tended release 24 hr TAKE 1 TABLET BY MOUTH ONCE DAILY NEEDED FOR HEADACHE 10/18 completed Not Available Not Available Not Available promethaz ine 25 mg tablet Take 1 tablet every 6 hours by oral route as needed, for nausea and vomiting . 01/16 completed Not Available Not Available Not Available folic acid 1 mg tablet 1 tablet Orally Once a day 30 day(s) 10/18 completed Not Available Not Available Not Available hydroxych loroquine 200 mg tablet TAKE 1 TABLET BY MOUTH TWICE DAILY active Not Available Not Available No t Available levofloxa yahir 750 mg tablet Take 1 tablet every day by oral route for 7 days. 01/16 completed Not Available Not Available Not Available albuterol sulfate HFA 90 mcg/actua tion aerosol inhaler every four hours, as needed 12/27 completed Not Available Not Available Not Available ketorolac 60 mg/2 mL intramusc ular solution Inject 2 mL every day by intramus cular route for 1 day. 01/07 completed Not Available Not Available Not Available propranol ol 20 mg tablet TAKE 1 TABLET BY MOUTH TWICE DAILY active Not Available Not Available No t Available ondansetr on 4 mg disintegr ating tablet Place 1 tablet 3 times a day by translin gual route as needed, for nausea/v omiting. 12/02 completed Not Available Not Available Not Available cefdinir 300 mg capsule Take 1 capsule every 12 hours by oral route for 7 days. 12/27 completed Not Available Not Available Not Available itraconaz ole 100 mg capsule TAKE 2 CAPSULES BY MOUTH ((200MG) ) THREE TIMES DAILY FOR 3 DAYS then 1 TABLET BY MOUTH TWICE DAILY (take with acidic beverage ) 10/18 completed Not Available Not Available Not Available diazepam 5 mg tablet TAKE 1 TABLET BY MOUTH ONCE DAILY 1 HOUR PRIOR TO SCHEDULE D PROCEDUR E FOR 1 DOSE 12/07 completed Not Available Not Available Not Available Vitamin B-12 ER 1,000 mcg tablet,ex tended release daily 12/27 completed vo KM/; Recorded 01/27/20 22 6:40AM by Lana Bermudez LPN, Office Visit; Refill Quantity : 90; Tablet; Not Available Not Available Not Available azithromy yahir 500 mg tablet TAKE 1 TABLET BY MOUTH DAILY FOR 5 DAYS UNTIL GONE (ALSO TAKE A PROBIOTI C DAILY TWO HOURS APART OR YOGURT TWO HOURS APART FROM ANTIBIOT IC) 10/18 completed Not Available Not Available Not Available cyclobenz aprine 5 mg tablet TAKE 1 TABLET BY MOUTH THREE TIMES DAILY NEEDED FOR MUSCLE SPASM active Not Available Not Available No t Available nitrofura ntoin monohydra te/macroc rystals 100 mg capsule TAKE 1 CAPSULE BY MOUTH TWICE DAILY DIRECTED 12/02 completed Not Available Not Available Not Available Enbrel 50 mg/mL (1 mL) subcutane ous syringe Inject ONE syringe UNDER THE SKIN EVERY SEVEN DAYS 12/18 completed Not Available Not Available Not Available levalbute rol HFA 45 mcg/actua tion aerosol inhaler INHALE 2 PUFFS INTO LUNGS EVERY 4 HOURS NEEDED FOR SHORTNES S OF BREATH 12/27 completed Not Available Not Available Not Available fluoxetin e daily 06/05 completed vo KM/dh; 21472; Recorded 01/27/20 22 6:40AM by Lana Bermudez LPN (Authori meghan through Heidi Spangler PA-C), Office Visit; Refill Quantity : 90; Capsule; Not Available Not Available Not Available hydroxyzi ne HCl three times daily, as needed 06/05 completed vo KM/dh; 23100; Recorded 01/27/20 22 6:40AM by Lana Bermudez LPN (Authori meghan through Heidi Spangler PA-C), Office Visit; Refill Quantity : 30; Tablet; Not Available Not Available Not Available folic acid daily 06/05 completed 0; Recorded 03/09/20 22 2:49PM by Lana Bermudez LPN, Office Visit; Not Available Not Available Not Available methotrex ate sodium 06/05 completed tapering up dose Dr Levy; 0; Recorded 03/09/20 22 2:49PM by Lana Bermudez LPN, Office Visit; Not Available Not Available Not Available Vitamin D once a week 07/04 completed vo KM/dh; Recorded 03/28/20 22 9:54AM by Lana Bermudez LPN, Historic al Summary; Refill Quantity : 12; Capsule; Not Available Not Available Not Available Divalproe x Sodium (Migraine ) as directed 06/05 completed vo KM/dh; 66047; Recorded 01/27/20 22 6:40AM by Lana Bermudez LPN (Authori meghan through Heidi Spangler PA-C), Office Visit; Refill Quantity : 270; Tablet; Not Available Not Available Not Available Symbicort 80 mcg-4.5 mcg/actua tion HFA aerosol inhaler two times daily 06/05 completed vo IRVIN/litzy; Recorded 02/08/20 22 7:16AM by Lana Bermudez LPN, Office Visit; Refill Quantity : 1; Applicat or; Not Available Not Available Not Available cholecalc iferol (vitamin D3) 1,250 mcg (50,000 unit) capsule Take 1 capsule every week by oral route. 2023 active Not Available Not Available Not Avai lable Trulicity 1.5 mg/0.5 mL subcutane ous pen injector Inject 1.5 mg every week by subcutan eous route for 30 days. 05/21 completed Not Available Not Available Not Available Trulicity 0.75 mg/0.5 mL subcutane ous pen injector Inject 0.75 mg every week by subcutan eous route as directed for 28 days. 01/16 completed Not Available Not Available Not Available Ozempic 0.25 mg or 0.5 mg (2 mg/1.5 mL) subcutane ous pen injector Inject 0.25 mg every week by subcutan eous route for 30 days. 12/16 completed Not Available Not Available Not Available Ajovy 225 mg/1.5 mL subcutane ous auto-inje ctor Inject 225 mg every month by subcutan eous route as directed . 2024 active Not Available Not Available Not Avai lable Trulicity 3 mg/0.5 mL subcutane ous pen injector INJECT 3MG UNDER THE SKIN ONCE WEEKLY 12/17 completed Not Available Not Available Not Available Mounjaro 7.5 mg/0.5 mL subcutane ous pen injector Inject 7.5 mg every week by subcutan eous route for 28 days. 12/16 completed Not Available Not Available Not Available Mounjaro 5 mg/0.5 mL subcutane ous pen injector active Not Available Not Available Not Available Mounjaro 10 mg/0.5 mL subcutane ous pen injector INJECT 10MG SUBCUTAN EOUSLY ONCE WEEKLY 12/16 completed Not Available Not Available Not Available Ozempic 0.25 mg or 0.5 mg (2 mg/3 mL) subcutane ous pen injector INJECT 0.5MG SUBCUTAN EOUSLY ONCE A WEEK active Not Available Not Available No t Available Vitals Date Recorded Body height Body mass index (BMI) Body weight Oxygen saturation Oxygen saturation in Arterial blood by Pulse oximetry Heart rate Respiratory rate Body temperature Systolic And Diastolic Provider Name and Address Organization Details Last Updated DateTime 5 165.1 cm 36.1 kg/m2 59405.5 4 g 97 % 97 % 78 /min 18 /min 98 [degF] 122/70 mm[Hg] [facility] 5 11:11:21 Date Recorded Body height Body mass index (BMI) Body weight Oxygen saturation Oxygen saturation in Arterial blood by Pulse oximetry Heart rate Respiratory rate Body temperature Systolic And Diastolic Provider Name and Address Organization Details Last Updated DateTime 5 165.1 cm 36.4 kg/m2 82842.7 3 g 99 % 99 % 76 /min 16 /min 98.6 [degF] 150/100 mm[Hg] Mai Earl [facility] 5 18:29:17 Date Recorded Body height Body mass index (BMI) Body weight Oxygen saturation Oxygen saturation in Arterial blood by Pulse oximetry Heart rate Respiratory rate Body temperature Systolic And Diastolic Provider Name and Address Organization Details Last Updated DateTime 5 165.1 cm 36.8 kg/m2 650916. 91 g 98 % 98 % 72 /min 18 /min 97 [degF] 138/80 mm[Hg] [facility] 5 11:21:55 Date Recorded Body height Body mass index (BMI) Body weight Oxygen saturation Oxygen saturation in Arterial blood by Pulse oximetry Heart rate Respiratory rate Body temperature Systolic And Diastolic Provider Name and Address Organization Details Last Updated DateTime 4 165.1 cm 34.6 kg/m2 18345.2 1 g 97 % 97 % 89 /min 16 /min 98.2 [degF] 128/80 mm[Hg] John Paul Pelletier [facility] 4 11:32:26 Social History Question Answer Notes LastModified by [employer] Details LastModified Time Tobacco Smoking Status Never Smoker Jordan bowden [facility] 09/17/2023 09:23:59 What Was The Date Of Your Most Recent Tobacco Screening? 12/02/2024 [email or web address] Information not available 12/02/2024 Sex: Unknown Functional Status Question Answer Note LastModified by [employer] Details LastModified Time Do you use any illicit or recreational drugs? No Information not available 01/08/2024 What is your level of alcohol consumption? None Information not available 01/08/2024 Mental Status None recorded. Family History Nothing Reported. Medical History Condition Response Coronary Artery Disease N Other Y Gout N Kidney Stones N Blood Diseases N Hyperthyroidism N Breast Cancer N Blood Transfusion N Hypothyroidism N Lung Disease N COPD N Depression N Defects or Inherited Disease N Developmental or Behavioral Disorders N Breast Problem N Difficulty Swallowing N Anesthesia Complications N Meniere's disease N Anxiety Disorder N Muscle, Joint, or Bone Problems Y Vision or Eye Problems N Arthritis N Infertility N Polyps N Cancer N Stroke N Varicosities N Endometriosis N Bladder or Kidney Problems N High Cholesterol N Liver Disease N Fibromyalgia N Headaches Y Kidney Disease N Allergies/Hayfever N Heart Problems Y Ear or Hearing Problems N Hospitalizations N Thyroid Problems N GI Problems N ADD/ADHD N Skin Problems N Eating Disorder N Anemia N Constipation N Mental Illness Y Ovarian Cancer N Diabetes Y Bedwetting N Seizures/Epilepsy N Tuberculosis N Eczema N Diverticulitis N Abuse/Domestic Violence N Asthma N Reflux/GERD N Hepatitis N Heart Disease N Pulmonary Embolism N Chronic Ear Infections N Pre-Eclampsia N Hypertension N Chicken Pox N Autism Spectrum Disorder (ASD) N Osteoporosis N Thrombophilias N Gynecological HistoryNo gynecological history recorded. Obstetrics History GPAL:G 0 P 0 0 0 0 Immunizations Vaccine Type Date Status Note Provider Nam e and Address Organization Details Recorded Time Tdap 7 completed Not Available [facility] 12/30/2022 02:38:33 Influenza, split virus, trivalent, preservative 6 completed Not Available [facility] 12/30/2022 02:38:34 Influenza, split virus, trivalent, preservative 2 completed [facility]08[facility]24 09:32:30 Influenza, split virus, trivalent, preservative 0 completed Not Available [facility] 12/30/2022 02:38:34 Influenza, split virus, trivalent, PF 7 completed Not Available [facility] 12/30/2022 02:38:34 MMR 0 completed [facility] 01/08/2024 09:32:30 MMR 0 completed [facility] 01/08/2024 09:32:30 COVID-19, mRNA, LNP-S, PF, 100 mcg/0.5mL dose or 50 mcg/0.25mL dose 1 completed [facility] 01/08/2024 09:32:30 COVID-19, mRNA, LNP-S, PF, 100 mcg/0.5mL dose or 50 mcg/0.25mL dose 0 completed Cara Pliler null, [facility] 01/08/2024 09:32:30 Tdap 4 completed Cara Pliler null, [facility] 01/08/2024 09:32:30 DTP 9 completed Cara Pliler null, [facility] 01/08/2024 09:32:30 DTP 0 completed [facility] 01/08/2024 09:32:30 DTP 9 completed Cara Pliler null, [facility] 01/08/2024 09:32:30 DTP 4 completed [facility] 01/08/2024 09:32:30 DTP 9 completed Cara Pliler null, [facility] 01/08/2024 09:32:30 Hep B, unspecified formulation 0 completed [facility] 01/08/2024 09:32:30 Hep B, unspecified formulation 0 completed [facility] 01/08/2024 09:32:30 OPV, trivalent 9 completed [facility] 01/08/2024 09:32:30 OPV, trivalent 0 completed Cara Pliler null, [facility] 01/08/2024 09:32:30 OPV, trivalent 9 completed Cara Pliler null, [facility] 01/08/2024 09:32:30 OPV, trivalent 4 completed [facility] 01/08/2024 09:32:30 Hep B, adult 4 completed Cara Pliler null, [facility] 01/08/2024 09:32:30 Influenza, split virus, quadrivalent, PF 2 completed [facility] 01/08/2024 09:32:30 Hep B, adolescent or pediatric 8 completed Not Available [facility] 12/09/2024 11:01:20 Influenza, split virus, quadrivalent, PF 8 completed Not Available [facility] 12/09/2024 11:01:20 Hep B, adolescent or pediatric 8 completed Not Available [facility] 12/09/2024 11:01:20 Hep B, adult 9 completed Not Available [facility] 12/09/2024 11:01:20 Rabies - IM fibroblast culture 4 completed Not Available [facility] 12/09/2024 11:01:20 Rabies - IM fibroblast culture 4 completed Not Available [facility] 12/09/2024 11:01:20 Rabies - IM fibroblast culture 4 completed Not Available [facility] 12/09/2024 11:01:20 Rabies - IM fibroblast culture 4 completed Not Available [facility] 12/09/2024 11:01:20 Tdap 4 completed NANI SLATER [address] [place] [address], [phone], [facility]/08/[facility] 17:15:03 Past Encounters Encounter ID Performer Location Encounter Start Date Encounter Closed Date Diagnosis/Indication Diagnosis SNOMED-CT Code Diagnosis ICD10 Code Diagnosis Note [id number] HEIDI SPANGLER PA-C [facility] ([facility]) [address] [place] [address] 10/18/2022 15:37:01 11/01/2022 09:53:44 Thoracic back pain 480080317 M54.6 Headache 09575787 R51.9 Hypertrophy of breast 37 3485541 N62 Neck pain 38289392 M54.2 [id number] MARLO HENDERSON [facility] ([facility]) [address] [place] [address] 11/02/2022 09:50:40 11/02/2022 11:59:35 Intermittent palpitations 372128484 R00.2 Will check CBC, CMP, Magnesium, and TSH today. EKG performed in clinic today and was normal. Encouraged patient to increase fluids. Will call with lab results. If labs are normal, will consider event monitor and echo. Patient had normal echo several years ago. Discussed with patient that if she has another long run of palpitatio ns with SOB or starts having chest pain, she should go to ED. Patient verbalized understand ing. [id number] HEIDI SPANGLER PA-C [facility] ([facility]) [address] [place] [address] 11/03/2022 18:11:33 11/15/2022 11:28:25 Finding of palpation of heart 116195690 R01.2 Dyspnea on exertion 6084 5006 R06.09 Chest pain 22545590 R07. 9 pt sent to ER to R/O ACS and PE. [id number] MARLO HENDERSON [facility] ([facility]) [address] [place] [address] 03/02/2023 15:17:03 03/02/2023 17:50:50 Dysuria 27921542 R30.0 Acute urin alin tract infection 951906668 N39.0 Start Macrobid BID x7 days, take as prescribed . Encouraged to increase water intake and decrease caffeine and sugary drinks. If still having symptoms after completion of antibiotic s, recommend a urine re-check. Urine was sent for culture. Will call with culture results. If worsening condition or no improvemen t in 3-5 days, recommend returning for re-evaluat ion. Patient verbalized understand ing. Patient reports frequent yeast infections with antibiotic s. Will start diflucan today and can repeat in 3 days if needed. Patient given instructio ns for this. [id number] HEIDI SPANGLER PA-C [facility] ([facility]) [address] [place] [address] 05/17/2023 15:58:38 05/21/2023 16:38:31 [id number] HEIDI SPANGLER PA-C [facility] ([facility]) [address] [place] [address] 05/29/2023 14:48:00 05/29/2023 15:46:38 Migraine 68648787 G43.909 Polymyalgia 43488996 M35 .3 Hyperglycemia 92694791 R 73.9 Vitamin D deficiency 347 24429 E55.9 [id number] HEIDI SPANGLER PA-C [facility] ([facility]) [address] [place] [address] 06/05/2023 15:34:58 06/05/2023 16:56:42 Chronic headache disorder 940225408 G44.89 Polymyalgia 84580129 M35 .3 Vitamin D deficiency 347 92783 E55.9 Level 15. Female hirsutism 2921411 9 L68.0 Type 2 connor betes mellitus 45410189 E11.9 A1C 6.0. [id number] NANI SLATER [facility] ([facility]) [address] [place], [place] [address] 09/17/2023 09:18:01 09/17/2023 09:48:02 Sore throat 103113934 J02.9 Acute pharyngitis 687397 003 J02.9 [id number] HEIDI SPANGLER PA-C [facility] ([facility]) [address] [place] [address] 12/28/2023 09:34:45 12/28/2023 10:28:19 Migraine 62890017 G43.909 Type 2 connor betes mellitus 35312608 E11.9 [id number] NANI SLATER [facility] ([facility]) [address] [place] [address] 01/08/2024 09:14:57 01/08/2024 12:46:26 Cat bite 217388309 W55.01XA Tdap updated today.Star daniel on antibiotic s today.Pt will f/u in ER for rabies IG and vaccine [id number] HEIDI SPANGLER PA-C [facility] ([facility]) [address] [place] [address] 01/17/2024 09:36:25 01/17/2024 10:38:15 Chronic daily headache 0206532345 80951 R51.9 continue with chiro adjustment s and add massage tx. Daytime somnolence 00788 36635 00 R40.0 due to daily LIMON, day time fatigue, witnessed snoring and apnea I think a home sleep study would be good to r/o apnea. [id number] HEIDI SPANGLER PA-C [facility] ([facility]) [address] [place] [address] 04/18/2024 10:57:41 04/18/2024 11:44:30 Cervical radiculopathy 30111407 M54.12 Pt with worsening radiculopa thy symptoms at the C7 T1 distributi on with constant tingling. I think she has spinal stenosis vs bulging disc that requires mri of neck. will also order NCS to confirm central imingment vs peripheral and the elbow level. Type 2 connor betes mellitus 18395575 E11.9 [id number] NANI SLATER [facility] ([facility]) [address] [place] [address] 05/21/2024 11:19:25 05/21/2024 12:02:51 Dysuria 76516777 R30.0 Kidney stone 97286444 N2 0.0 Discussed use of prescribed meds. VSS. No signs of pyelo. If symptoms do not resolve in next 1-2 days then f/u in ER for imaging. Push oral fluids. [id number] PATRICIA OBANDO APRN [facility] ([facility]) [address] [place] [id number] 05/23/2024 17:51:54 05/23/2024 18:07:55 [id number] HEIDI SPANGLER PA-C [facility] ([facility]) [address] [place] [address] 08/14/2024 11:07:39 08/14/2024 12:02:59 Herpes labialis 2017846 B00.1 Chest wall pain 63833547 6 R07.89 [id number] NANI SLATER [facility] ([facility]) [address] [place] [address] 12/02/2024 18:24:09 12/03/2024 12:19:00 Refractory migraine without aura 053622969 G43.011 Pt states toradol and promethazi ne injections typically help for her breakthrou gh migraines. Pt does not have a construction driver today. Pt states she receives promethazi ne injections and drives all the time. Compromise d that today only will do half dose of promethazi ne and 30mg of toradol. she will need to bring a construction driver in the future.No signs of meningitis . 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 gets chests and palpitatio ns from them. Type 2 connor betes mellitus 06073373 E11.9 stop the trulicity when done with current month. Fatigue 93821216 R53.82 Chronic da latisha headache 6958759111 24050 R51.9 continue with chiro adjustment s and add massage tx.Nurtec samples given and up her Amitri. from 10 mg to 25mg. Health Concerns Section Related Observation LastModified by Organization Detai ls LastModified Time None Recorded Concern Status LastModified by Organization Details LastModified Time None Recorded Advance Directives Directive None Recorded Payers Insurance Date Sequence Insurance Name Policy Number Policy Tiwari Covered Member ID Tiwari Member ID Guarantor Name 12/28/2023 2 [place] Bibiana Tan [id number] Bibiana Tan 12/02/2024 [place] [facility] (INSTITUTIONAL ) [id number] Bibiana Tan [id number] Bibiana Tan 12/28/2023 1 [facility] [employer] [id number] Bibiana Tan [id number] Bibiana Tan 01/08/2024 [place] [id number] [facility] Bibiana Tna 12/28/2023 1 [facility] (O) [id number] Bibiana Tan [id number] Bibiana Tan 12/08/2024 1 [facility] (MEDICAID REPLACEMENT - HMO) [id number] Bibiana Tan [id number] Bibiana Tan Notes Date Note Type Note Provider Name and Address Organization Details Recorded Time 05/21/2024 text/html [facility] right side lower back pain that radiates into her abdomen. Has blood in her urine that started this morning. Harder to start her urine stream. Denies nausea, vomiting, fever, or dysuria. Hx of kidney stones. NICK NANI MOBLEY [address] [place], [address], [facility] 05/23/2024 13:13:08 08/14/2024 text/html Musculoskeletal PainReported bypatient.Location:emiliano n is not radiating; left neck; arm Quality:sharp;tingling ;dull Severity:worsening;int erferes with sleep;interferes with work/school Duration:present for 1-6 months Timing:constant; pain at night; gradual Alleviating Factors:rest; changing position Aggravating factors:movement/posit ioning Associated Symptoms:weak limbs ADLs Affected:walking; sweeping; mopping; bathing; dressing; climbing stairsSkin LesionReported bypatient.Location:lip Quality:painful; tender; growing gradually Severity:moderate Duration:2 weeks Timing:abrupt Alleviating Factors:oral antifungal ozh follow up 08-06-24 for fever blisters I have a pain in my left collarbone area feels like a muscle pain. 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 HEIDI SPANGLER PA-C [address] [place], [address], [facility] 08/14/2024 11:57:05 12/02/2024 text/html [facility] headache that is on left side of her head that will not stop, patient said that it started 5 days ago and her amitriptyline and propranolol is not helping. Took tylenol, ibuprofen, and 1 dose of nurtec with no relief. Took a flexeril last night. None of these have helped. no recent illness or trauma. typical migraine symptoms for her. NICK NANI MOBLEY [address] [place], [address], [facility] 12/03/2024 11:36:48 12/09/2024 text/html HeadacheReported bypatient.Location:orb ital; frontal; lleft sided Quality:aching;pain Severity:moderate; pain level 3/10 Duration:has noted for 3 weeks Onset/Timing:gradual; still present walkin follow up headache got toradol and phenergan , limon is better but still thereHadnt had LIMON in a long timeSTarted getting daily about 3 weeks ago. Wakes up with one and even wakes her up in the middle of the night.Currently on amytriptyline and propranol. HEIDI SPANGLER PA-C [address] [place], [address], [facility] 12/09/2024 11:58:45 OBGyn Episode No OBEpisode recorded.
--- OUTSIDE RECORDS SUMMARY | 2024-12-23 14:09 | XMS_ITS | Patient Health Record ---
Author Organization [facility] Address [address] [place] [address] Care Team Providers Care Lidar Technician Name Role Phone Heidi Vallejo Primary Care Provider Christopher Howell Unavailable [phone] Allergies Allergen (clinical drug ingredient) Drug/Non Drug Allergy documented on EMR Reaction Allergy Type Onset Date Status sulfamethoxazole / trimethoprim Bactrim Unknown Drug Allergy Active amoxicillin Amoxicillin Unknown Drug Allergy Act collins minocycline Minocycline , Drug Allergy Act collins sulfamethoxazole / trimethoprim Sulfamethoxazole/Tri methoprim , Drug Allergy Active vancomycin Vancomycin , Drug Allergy Activ e Reason For Referral No Information Medications Medication SIG (Take, Route, Frequency, Duration) Notes Start Date End Date Status Methotrexate Sodium 2.5 MG Tablet as directed Orally weekly; Duration: 90 days 02/23/2022 Not-Taking Immunizations Vaccine Route Administration Date Status Comme nts Flucelvax Quadrivalent Unknown 03/13/2022 Refused Hep B, adult dosage, for intramuscular use Unknown 10/21/2018 Administered Influenza (whole), CPT 04778 Inactive Unknown 03/13/2018 Administered Social History Tobacco Use: Social History Observation Description Date Details (start date - stop date) Former Smoker NA - NA Social History Tobacco Use: Social Info Question Answer Notes xTobacco Use/Smoking Are you a former smoker How long has it been since you last smoked? 5-10 years Additional Details Category Social Info Options Details zzMigrated Social History Migrated Social History Smoking Status:Never smoked tobacco (finding) Problems Problem Type SNOMED Code ICD Code Onset Dates Problem Status W/U Status Risk Notes Problem Pulmonary sarcoidosis (87807789) Pulmonary sarcoidosis (D86.0) Active confirmed Plan Of Treatment Pending Test Test Name Order Date IgG [id number] 02/28/2022 CT Chest w/ + w/o Contrast diagnostic-71 270 02/28/2022 Bronchoscopy, [id number] 03/06/2022 Bronchoscopy, [id number] 02/16/2022 Insurance Providers Payer Name Payer Address Payer Phone Subscriber Number Group Number Insured Name Patient Relationship to Insured Coverage Start Date Coverage End Date [facility] [address] [address] [place] [phone] [id number] Bibiana Tan Self - patient is the insured Medical (General) History Medical History History ICD Code Problem:Obesity (disorder) , Status :: A ctive Measles, Chicken pox Pneumonia Bladder infections Migraine High blood pressure Bronchitis Anxiety Depression IBS Kidney stones Surgical History Surgery Date(Month/Year) [place] teeth removed 2013 tubal ligation 2016 hysterectomy 2020 Child 3x Bronchoscopy 02/21/22 Hospitalization History Reason Date(Month/Year) Above HX hospitalized for Pneumonia / [facility] 2
[2024-12-23 15:04] LABS: Hematocrit 39.6 % (36-47); Hemoglobin 12.80 g/dL (11.27-16.99); Mean Corpuscular HGB Conc 32.3 g/dL (30-55); Mean Corpuscular Hemoglobin 28.4 pg (27-33); Mean Corpuscular Volume 87.8 fl (85-98); Nucleated Red Blood Cells % 0 %; Platelet Count 247 10^3/cmm (157-399); Red Blood Count 4.51 10^6/uL (3.85-5.65); White Blood Count 10.31 10^3/uL (3.29-11.43)
--- NOTE | 2024-12-23 15:08 | CT_ITS ---
WS: [id number] CT ABDOMEN AND PELVIS NONCONTRAST HISTORY: r flank pain TECHNIQUE: Imaging performed through the abdomen and pelvis. Coronal and sagittal reformats are submitted. All CT scans at [facility] use at least one of these dose optimization techniques: automated exposure control; mA and/or kV adjustment per patient size (includes targeted exams where dose is matched to clinical indication); or iterative reconstruction. DLP: 999.00 mGy.cm COMPARISON: 05/23/2024 Lower thorax: Lung bases are clear. Visualized heart is normal. No hiatal hernia. Liver: Normal size liver. No mass or bile duct dilatation. Gallbladder: Normally distended gallbladder with stones. No acute cholecystitis identified by CT. Pancreas: Normal size and attenuation. Normal pancreatic duct. No pancreatitis or mass. Spleen: Normal size spleen with granulomata. Adrenal glands: Normal. No mass. Right kidney: Normal size kidney. Nonobstructing 7 mm calcification in the renal pelvis. No hydronephrosis. Ureter is normal size. No ureteral calcification. Left kidney: Normal size kidney. Nonobstructing 3 mm calcification lower pole. No hydronephrosis. Normal size LEFT ovary. Aorta: Normal abdominal aorta, no aneurysm or atherosclerosis. Small mesenteric and RIGHT lower quadrant lymph nodes. GI tract: No GI tract obstruction. Normal appendix. No colitis. Abdominal wall: Small umbilical hernia contains fat only. Pelvis: Absent uterus. Both ovaries are identified. Each ovary contains small follicles. Osseous structures: Unremarkable. CT/CT kidney stone [id number] IMPRESSION: 1. Bilateral nonobstructing renal calcifications. 2. No hydronephrosis or hydroureter. 3. Normal appendix. 4. Cholelithiasis without acute cholecystitis by CT.
--- NOTE | 2024-12-23 15:11 | ED_ITS ---
HPI - Abdominal Pain 2 General: Chief Complaint: Abdominal Pain Stated Complaint: abd pain, nausea Time Seen by Provider: 12/23/24 14:44 Source: patient Mode of arrival: ambulatory Limitations: no limitations History of Present Illness: 34-year-old females had a history of kid shy stones she states she been having right sided flank pain that radiates to her abdomen is going on for 3 to 4 days. States pains been sharp in nature rates it a 6 out of 10 denies any dysuria has had nausea no vomiting. Denies any worse improved factors. Associated Symptoms: Reports nausea; Denies chills, diarrhea, dysuria, fever(s) and vomiting Related Data Home Medications ?Medication ?Instructions ?Recorded ?Confirmed ibuprofen 200 mg tablet (Advil) 600 mg PO Q6H PRN Pain 01/19/22 12/23/24 spironolactone 25 mg tablet 25 mg PO DAILY 07/25/23 cholecalciferol (vitamin D3) 125 125 mcg PO DAILY 02/2512/23/24 mcg (5,000 unit) tablet (Vitamin D3) propranolol 20 mg tablet 20 mg PO BID 02/11/24 valacyclovir 1 gram tablet 1,000 mg PO Q12H PRN cold/f ever 09/03/24 12/23/24 blister amitriptyline 25 mg tablet 25 mg PO BEDTIME 12/17/24 0 12/23/24 fremanezumab-vfrm 225 mg/1.5 mL 225 mg SUBCUT PRN PRN Migraine 12/23/24 12/23/24 subcutaneous auto-injector (Ajovy) Headache Previous Rx's ?Medication ?Instructions ?Recorded adalimumab 40 mg/0.4 mL See Rx Instructions SUBCUT 0 12/17/24 subcutaneous pen kit (Humira(CF) .COMPLEX #2 ea Pen) hydroxychloroquine 200 mg tablet 200 mg PO BID #180 ta bs 12/17/24 hydrocodone 5 mg-acetaminophen 325 1 tab PO Q6H PRN pa in #14 tabs 12/23/24 mg tablet ondansetron 4 mg disintegrating 4 mg PO Q6H PRN nausea and 12/23/24 tablet vomiting #14 tabs Allergies Allergy/AdvReac Type Severity Reaction Status Date / Time minocycline Allergy Severe severe Verified 12/17/24 11:46 hives, jiont swelling vancomycin Allergy Severe red man Verified 12/17/24 11:46 syndrome Penicillins Allergy Intermediate ALGY-Hives Verified 12/17/24 11:46 sulfamethoxazole (From Allergy Mild fine white Verified 12/17/24 11:46 Bactrim) rash/ itching trimethoprim (From Bactrim) Allergy Mild fine white Verified 12/17/24 11:46 rash/ itching amoxicillin Allergy hives Verified 12/17/24 11:46 leflunomide AdvReac Intermediate hair loss Verified 12/17/24 11:46 steroids Allergy ADR-Headach Uncoded 12/17/24 11:46 e Review of Systems 2 Const: Denies: fever(s), chills, body aches or change in appetite ENMT: Denies: throat pain or dental pain Card: Denies: chest pain Resp: Denies: dyspnea GI: Reports: abdominal pain and nausea; Denies: vomiting or diarrhea : Reports: flank pain; Denies: dysuria Musc: Denies: neck pain or back pain Skin/Breast: Denies: rash Neuro: Denies: headache(s) PFSH ED 2 PFSH: Medical History Immunization counseling Seronegative rheumatoid arthritis of both hands Shortness of breath High risk medication use Anxiety Depression Chronic migraine Inflammatory arthritis Palpitation Allergy to multiple antibiotics Failure of outpatient treatment Tachycardia Pneumonia RAYNE positive Surgical History H/O tubal ligation [place] teeth removed History of hysterectomy 2020 History of colonoscopy 2020 Family History Mother Diabetes pre-stage Arthritis Denies family history of Colon cancer Ovarian cancer Clotting disorder Heart disease Hyperlipidemia Breast cancer Suicide Bleeding disorder Hypertension Uterine cancer Stroke Social History Smoking and tobacco/nicotine status: never used tobacco/nicotine Alcohol intake: current Alcohol intake frequency: few times a week Alcohol type: wine and hard liquor Substance/Drug Use: never Lives independently: Yes Household members: spouse and children Marital status: Physical Exam 2 Const: COMMON NORMALS: no acute distress, patient oriented x3 and healthy appearing HENMT: COMMON NORMALS: normocephalic and atraumatic HEAD & SCALP: n ormocephalic and atraumatic Eye: COMMON NORMALS: conjunctivae normal CONJUNCTIVA: Yes conjunctivae normal Neck/C-Spine: COMMON NORMALS: full ROM and supple Chest: COMMONS NORMALS: normal inspection of the chest Resp: COMMON NORMALS: normal respiratory effort Cardio: COMMON NORMALS: regular rate, regular rhythm and No murmurs present (Cardio) RATE: regular rate RHYTHM: regular rhythm GI: COMMON NORMALS: Normal to inspection, nondistended, normoactive bowel sounds present, Soft to palpation, non-tender and no masses PALPATION: Yes Soft to palpation Extremity: COMMON NORMALS: normal to inspection and full ROM Neuro: COMMON NORMALS: patient oriented x3, moves all extremities and no focal motor deficits Psych: COMMON NORMALS: mental status grossly normal, Normal thought process present and cooperative THOUGHT PROCESS: Normal thought process present Skin: COMMON NORMALS: no rashes or lesions noted and no wounds GENERAL SKIN EXAM: no rashes or lesions noted Course 2 Vital Signs: Vital signs: Vital Signs Temperature 98.1 F 12/23/24 14:17 Pulse Rate 97 12/23/24 17:33 Respiratory Rate 17 12/23/24 15:55 Blood Pressure 135/89 12/23/24 17:33 Pulse Oximetry 96 12/23/24 17:33 Oxygen Delivery Me thod Room Air 12/23/24 17:00 MDM - Abdominal Pain Medical Decision Making Patient presents for flank abdominal pain CT does show gallstones no signs of kidney stones or cholecystitis blood work here is normal she is stable for discharge follow-up PCP return if worsening. Medical Records I reviewed the patient's medical records. Lab Data I reviewed the patient's lab results. 12/23/24 14:54 12/23/24 14:54 Labs/Radiology: Radiology Impressions Abdomen/Pelvis CT 12/23/24 15:08 IMPRESSION: 1. Bilateral nonobstructing renal calcifications. 2. No hydronephrosis or hydroureter. 3. Normal appendix. 4. Cholelithiasis without acute cholecystitis by CT. Laboratory Results WBC 10.31 10^3/uL (3.29-11.43) 12/23/24 14:54 RBC 4.51 10^6/uL (3.85-5.65) 12/23/24 14:54 Hgb 12.80 g/dL (11.27-16.99) 12/23/24 14:54 Hct 39.6 % (36-47) 12/23/24 14:54 MCV 87.8 fl (85-98) 12/23/24 14:54 MCH 28.4 pg (27-33) 12/23/24 14:54 MCHC 32.3 g/dL (30-55) 12/23/24 14:54 RDW 12.3 % (12.1-15.1) 12/23/24 14:54 Plt Count 247 10^3/cmm (157-399) 12/23/24 14:54 MPV 10.2 fL (7.4-10.4) 12/23/24 14:54 Neut % (Auto) 67.3 % 12/23/24 14:54 Lymph % (Auto) 25.4 % 12/23/24 14:54 [place] % (Auto) 5.9 % 12/23/24 14:54 Eos % (Auto) 0.8 % 12/23/24 14:54 Baso % (Auto) 0.4 % 12/23/24 14:54 Neut # (Auto) 6.94 10^3/uL (1.8-7.7) 12/23/24 14:54 Lymph # (Auto) 2.6 10^3/uL (0.8-4.8) 12/23/24 14:54 [place] # (Auto) 0.6 10^3/uL (0.2-0.9) 12/23/24 14:54 Eos # (Auto) 0.1 10^3/uL (0.0-0.8) 12/23/24 14:54 Baso # (Auto) 0.0 10^3/uL (0.0-0.1) 12/23/24 14:54 Nucleated RBC % (auto) 0 % 12/23/24 14:54 Nucleated RBCs # 0.0 /100WBC 12/23/24 14:54 Sodium 138 mmol/L (136-145) 12/23/24 14:54 Potassium 3.6 mmol/L (3.5-5.1) 12/23/24 14:54 Chloride 101 mmol/L (98-107) 12/23/24 14:54 Carbon Dioxide 24 mmol/L (22-29) 12/23/24 14:54 Anion Gap 16.6 (5-19) 12/23/24 14:54 BUN 13 mg/dL (6-20) 12/23/24 14:54 Creatinine 0.5 mg/dL (0.5-0.9) 12/23/24 14:54 GFR Calculation 139.6 mL/min (90-130) H 12/23/24 14:54 Glucose 157 mg/dL (65-115) H 12/23/24 14:54 Calculated Osmolality 289 mOsm/kg (285-295) 12/23/24 14:54 Calcium 9.3 mg/dL (8.5-10.5) 12/23/24 14:54 Total Bilirubin 0.3 mg/dL (0.15-1.2) 12/23/24 14:54 AST 15 U/L (0-32) 12/23/24 14:54 ALT 18 U/L (0-33) 12/23/24 14:54 Alkaline Phosphatase 66 U/L (35-105) 12/23/24 14:54 Total Protein 7.3 g/dL (6.6-8.7) 12/23/24 14:54 Albumin 4.5 g/dL (3.5-5.2) 12/23/24 14:54 Globulin 2.8 g/dL (1.3-4.6) 12/23/24 14:54 Lipase 29 U/L (13-60) 12/23/24 14:54 HCG, Qual Negative (Negative) 12/23/24 14:54 Urine Color Yellow (Yellow) 12/23/24 16:18 Urine Appearance Error (CLEAR) A 12/23/24 16:18 Urine pH 5.5 (5-7) 12/23/24 16:18 Ur Specific [place] 1.026 (1.005-1.030) 12/23/24 16:18 Urine Protein Negative (Negative) 12/23/24 16:18 Urine Glucose (UA) Negative (Normal) 12/23/24 16:18 Urine Ketones Trace (Negative) 12/23/24 16:18 Urine Blood Negative (Negative) 12/23/24 16:18 Urine Nitrate Negative (Negative) 12/23/24 16:18 Urine Bilirubin Negative (Negative) 12/23/24 16:18 Urine Urobilinogen 1.0 mg/dL (Negative) 12/23/24 16:18 Ur Leukocyte Esterase 1+ (Negative) A 12/23/24 16:18 Urine RBC 0-2 /hpf (0-2) 12/23/24 16:18 Urine WBC 21-50 /hpf (0-5) H 12/23/24 16:18 Ur Squamous Epith Cells 0-5 /hpf (0-5) 12/23/24 16:18 Amorphous Sediment Not Reportable 12/23/24 16:18 Urine Bacteria 2+ /hpf (NONE) H 12/23/24 16:18 Hyaline Casts 0.81 /lpf 12/23/24 16:18 All radiology interpretation(s) finalized by discharge Discharge Plan Discharge Patient Disposition: Home Clinical Impression: Abdominal pain, Gallstone Condition: Stable Prescriptions: New hydrocodone-acetaminophen 5-325 mg tablet 1 tab PO Q6H PRN (Reason: pain) Qty: 14 0RF ondansetron 4 mg tablet,disintegrating 4 mg PO Q6H PRN (Reason: nausea and vomiting) Qty: 14 0RF No Action amitriptyline 25 mg tablet 25 mg PO BEDTIME hydroxychloroquine 200 mg tablet 200 mg PO BID Qty: 180 1RF Humira(CF) Pen 40 mg/0.4 mL pen injector kit See Rx Instructions SUBCUT .COMPLEX Qty: 2 5RF Rx Instructions: inject one - 40 mg/0.4 mL pen every 2 weeks SUBCUT valacyclovir 1 gram tablet 1,000 mg PO Q12H PRN (Reason: cold/fever blister) propranolol 20 mg tablet 20 mg PO BID cholecalciferol (vitamin D3) [Vitamin D3] 125 mcg (5,000 unit) tablet 125 mcg PO DAILY ibuprofen [Advil] 200 mg Tablet 600 mg PO Q6H PRN (Reason: Pain) Ajovy Autoinjector 225 mg/1.5 mL Auto-Injector 225 mg SUBCUT PRN PRN (Reason: Migraine Headache) spironolactone 25 mg Tablet 25 mg PO DAILY Discharge Orders: Discharge ED (Routine); Ordered 12/23/24 Ordered By: Rola Duran Referrals: Jm Koehler MD [Physician, General Surgery] - 4-7 days Heidi Spangler PA [Primary Care Provider, [facility]] Discharge Diet: Advance as tolerated Discharge Activity: Resume usual activity Patient Instructions: Gallstones (ED), Abdominal Pain (ED) Print Language: Kyrgyz Coding Level of Care Code ED Sap Portal Consultant for Maxine Mcgee
[2024-12-23 15:16] LABS: HCG, Serum Qual Negative (Negative)
[2024-12-23 15:25] LABS: Alanine Aminotransferase 18 U/L (0-33); Albumin Level 4.5 g/dL (3.5-5.2); Alkaline Phosphatase 66 U/L (35-105); Anion Gap 16.6 (5-19); Aspartate Amino Transferase 15 U/L (0-32); Blood Urea Nitrogen 13 mg/dL (6-20); Calcium 9.3 mg/dL (8.5-10.5); Carbon Dioxide 24 mmol/L (22-29); Chloride 101 mmol/L (98-107); Creatinine Clr Calc Pharmacy 181.9960; Globulin 2.8 g/dL (1.3-4.6); Glucose 157 mg/dL (65-115); Lipase 29 U/L (13-60); Osmolality Calculated 289 mOsm/kg (285-295); Potassium 3.6 mmol/L (3.5-5.1); Sodium 138 mmol/L (136-145); Total Protein 7.3 g/dL (6.6-8.7)
[2024-12-23] MEDS: ondansetron 2 mg/ML SDV 2 mL 4 MG IVP (15:52)
[2024-12-23] MEDS: morphine 4 mg/mL SDV 1 mL IVP (15:55)
--- NOTE | 2024-12-23 16:02 | PC.NURSE ---
asked pt for urine sample, pt states not right now, will attempt again.
--- NOTE | 2024-12-23 16:17 | PC.PHAR ---
Pt states she stopped Enbrel and started Humira.
[2024-12-23 17:19] LABS: Add Urine Microscopic? YES; Glucose Urine UA Negative (Normal); Nitrate Urine Negative (Negative); Specific Gravity, Urine 1.026 (1.005-1.030)
--- NOTE | 2024-12-24 12:34 | PC.NURSE ---
General surgery referral with Dr. Koehler sent.
== END 2024-12-23 17:34 | disposition home or self-care (01) ==
PROVIDERS: Emergency Provider Emergency Medicine; PCP Physician Assistant
DX: R10.9 Unspecified abdominal pain (principal); K80.20 Calculus of gallbladder without cholecystitis without obstruction
CPT/HCPCS: 36415; 74176; 80053; 81001; 83690; 84703; 85025; 87077; 87086; 87186; 96374; 96375; 99285; J1885; J2270; J2405

== ENCOUNTER → 2025-01-14 06:29 | Day surgery (SDC) | payer BC, MEDICAID, SELFPAY ==
[2025-01-14] VITALS (17 sets, daily range): BP systolic 111–130; BP diastolic 62–81; PULSE 67–93; RESP 13–24; TEMP 36.1–37.1; O2SAT 94–100; BMI 36.8
--- NOTE | 2025-01-14 07:06 | W.PM.OPSFHP ---
Same Day Surgery H&P Indication for Procedure/HPI DATE OF PROCEDURE: January 14, 2025 CHIEF COMPLAINT/INDICATIONFOR SURGICAL PROCEDURE: symptomatic cholelithiasis PREOP DIAGNOSIS: symptomatic cholelithiasis PLANNED PROCEDURE: Operation Date: 01/14/25 08:05 Proposed Procedures p Laparoscopic Cholecystectomy 59405 K80.20(Not Applicable) - Jm Koehler MD Medications/Allergies* Home Medications ?Medication ?Instructions ?Recorded ?Confirmed ?Type ibuprofen 200 mg tablet (Advil) 600 mg PO Q6H PRN Pain 01/19/22 01/13/25 History spironolactone 25 mg tablet 25 mg PO DAILY 07/25/23 01/13/25 History cholecalciferol (vitamin D3) 125 125 mcg PO DAILY 02/11/24 01/13/25 History mcg (5,000 unit) tablet (Vitamin D3) propranolol 20 mg tablet 20 mg PO BID 02/11/24 01/13/25 History valacyclovir 1 gram tablet 1,000 mg PO Q12H PRN cold/fever 09/03/24 01/13/25 History blister amitriptyline 25 mg tablet 25 mg PO BEDTIME 12/17/24 01/13/25 History fremanezumab-vfrm 225 mg/1.5 mL 225 mg SUBCUT Q1-2M Migraine 12/23/24 01/13/25 History subcutaneous auto-injector (Ajovy) Headache semaglutide 0.25 mg or 0.5 mg (2 See Rx Instructions .Route .COMPLEX 12/25/24 01/13/25 History mg/3 mL) subcutaneous pen injector (Ozempic) Allergies/Adverse Reactions Allergy/AdvReac Type Severity Reaction Status Date / Time minocycline Allergy Severe severe Verified 01/14/25 06:42 hives, jiont swelling vancomycin Allergy Severe red man Verified 01/14/25 06:42 syndrome Penicillins Allergy Intermediate ALGY-Hives Verified 01/14/25 06:42 sulfamethoxazole (From Allergy Mild fine white Verified 01/14/25 06:42 Bactrim) rash/ itching trimethoprim (From Bactrim) Allergy Mild fine white Verified 01/14/25 06:42 rash/ itching amoxicillin Allergy hives Verified 01/14/25 06:42 leflunomide AdvReac Intermediate hair loss Verified 01/14/25 06:42 steroids Allergy ADR-Headach Uncoded 01/14/25 06:42 e Pertinent History/Comorbid Conditions* Medical History (Updated 12/31/24 @ 00:00 by CAYLA Lazo) Immunization counseling Seronegative rheumatoid arthritis of both hands Shortness of breath High risk medication use Anxiety Depression Chronic migraine Inflammatory arthritis Palpitation Allergy to multiple antibiotics Failure of outpatient treatment Tachycardia Pneumonia RAYNE positive Surgical History (Updated 06/12/23 @ 11:04 by Matty Castillo MD) H/O tubal ligation [place] teeth removed History of hysterectomy 2020 History of colonoscopy 2020 Family History (Updated 12/15/21 @ 09:01 by Rosa Glaser RN) Diabetes Mother pre-stage Arthritis Mother Denies family history of Colon cancer Ovarian cancer Clotting disorder Heart disease Hyperlipidemia Breast cancer Suicide Bleeding disorder Hypertension Uterine cancer Stroke Social History Smoking and tobacco/nicotine status: never used tobacco/nicotine Alcohol intake: current Alcohol intake frequency: few times a week Alcohol type: wine and hard liquor Substance/Drug Use: never Lives independently: Yes Household members: spouse and children Marital status: Pertinent Exam Findings alert, oriented x 3, clear to auscultation bilaterally, regular rate & rhythm and procedure specific exam findings abdomen soft, nt nd Recommendations Risks and benefits of procedure reviewed and Patient/family agree to proceed Surgery/Procedure today Coding Level of Care Code Acute Code for Maxine Mcgee
--- NOTE | 2025-01-14 07:24 | ANES.PREANE2 ---
Pre-Anesthetic Assessment Height/Weight: Height 5 ft 5 in Weight 221 lb Temp Pulse Resp BP Pulse Ox O2 Del Method 98.0 F 89 17 130/77 98 Room Air 01/14/25 06:47 01/14/25 06:47 01/14/25 06:47 01/14/25 06:47 01/14/25 06:47 01/14/25 06:49 Preop Diagnosis: symptomatic cholelithiasis Operation Date: 01/14/25 08:05 Proposed Procedures p Laparoscopic Cholecystectomy 63441 K80.20(Not Applicable) - Jm Koehler MD Was Beta Sylvia taken within 24 hours: Yes Was Clonidine taken within 24 hours: N/A Last intake: Intake Last Liquid Date 01/13/25 Last Liquid Time 20:00 Last Solid Date 01/13/25 Last Solid Time 19:00 Social No alcohol Exam alert, oriented x 3, clear to auscultation bilaterally and regular rate & rhythm Airway Submandibular: within normal limits Cervical ROM: within normal limits Mallampati: Class II Dentition: full Anesthetic Plan ASA status: 3 Anesthesia: General Other: No prior issues with anesthesia NPO since yesterday evening Patient takes propranolol for migraines Denies any pulmonary issues Rheumatoid arthritis on adalimumab Patient is on Ozempic, last taken 01/03/2025 Labs reviewed from 12/23/2024 and acceptable for procedure Plan for GETA Medications/Allergies Home Medications ?Medication ?Instructions ?Recorded ?Confirmed ?Last Taken ?Type ibuprofen 200 mg tablet (Advil) 600 mg PO Q6H PRN Pain 01/19/22 01/13/25 01/10/25 History spironolactone 25 mg tablet 25 mg PO DAILY 07/25/23 01/13/25 01/13/25 History cholecalciferol (vitamin D3) 125 125 mcg PO DAILY 02/11/24 01/13/25 01/13/25 History mcg (5,000 unit) tablet (Vitamin D3) propranolol 20 mg tablet 20 mg PO BID 02/11/24 01/13/25 01/13/25 History valacyclovir 1 gram tablet 1,000 mg PO Q12H PRN cold/fever 09/03/24 01/13/25 Unknown History blister adalimumab 40 mg/0.4 mL See Rx Instructions SUBCUT 12/17/24 01/13/25 12/23/24 Rx subcutaneous pen kit (Humira(CF) .COMPLEX #2 ea Pen) amitriptyline 25 mg tablet 25 mg PO BEDTIME 12/17/24 01/13/25 01/13/25 History hydroxychloroquine 200 mg tablet 200 mg PO BID #180 tabs 12/17/24 01/13/25 01/13/25 Rx fremanezumab-vfrm 225 mg/1.5 mL 225 mg SUBCUT Q1-2M Migraine 12/23/24 01/13/25 12/22/24 History subcutaneous auto-injector (Ajovy) Headache hydrocodone 5 mg-acetaminophen 325 1 tab PO Q6H PRN pain #14 tabs 12/23/24 01/13/25 Unknown Rx mg tablet ondansetron 4 mg disintegrating 4 mg PO Q6H PRN nausea and 12/23/24 01/13/25 Unknown Rx tablet vomiting #14 tabs semaglutide 0.25 mg or 0.5 mg (2 See Rx Instructions .Route .COMPLEX 12/25/24 01/13/25 01/03/25 History mg/3 mL) subcutaneous pen injector (Ozempic) Allergies Allergy/AdvReac Type Severity Reaction Status Date / Time minocycline Allergy Severe severe Verified 01/14/25 06:42 hives, jiont swelling vancomycin Allergy Severe red man Verified 01/14/25 06:42 syndrome Penicillins Allergy Intermediate ALGY-Hives Verified 01/14/25 06:42 sulfamethoxazole (From Allergy Mild fine white Verified 01/14/25 06:42 Bactrim) rash/ itching trimethoprim (From Bactrim) Allergy Mild fine white Verified 01/14/25 06:42 rash/ itching amoxicillin Allergy hives Verified 01/14/25 06:42 leflunomide AdvReac Intermediate hair loss Verified 01/14/25 06:42 steroids Allergy ADR-Headach Uncoded 01/14/25 06:42 e Current Medications Generic Name Dose Route Start Last Admin Trade Name Freq PRN Reason Stop Dose Admin Sodium Chloride 1,000 mls @ 30 mls/hr 01/14/25 06:45 01/14/25 07:10 Sodium Chloride 0.9% IV 01/15/25 06:44 30 mls/hr .Q24H TONY Administration PFSH Anesthesia Medical History (Updated 12/31/24 @ 00:00 by CAYLA Lazo) Immunization counseling Seronegative rheumatoid arthritis of both hands Shortness of breath High risk medication use Anxiety Depression Chronic migraine Inflammatory arthritis Palpitation Allergy to multiple antibiotics Failure of outpatient treatment Tachycardia Pneumonia RAYNE positive Surgical History H/O tubal ligation [place] teeth removed History of hysterectomy 2020 History of colonoscopy 2020 Family History Mother Diabetes pre-stage Arthritis Denies family history of Colon cancer Ovarian cancer Clotting disorder Heart disease Hyperlipidemia Breast cancer Suicide Bleeding disorder Hypertension Uterine cancer Stroke Social History Smoking and tobacco/nicotine status: never used tobacco/nicotine Alcohol intake: current Alcohol intake frequency: few times a week Alcohol type: wine and hard liquor Substance/Drug Use: never Lives independently: Yes Household members: spouse and children Marital status: Data Anesthesia Cardiac Studies: Holter Monitor 11/14/22
[2025-01-14] MEDS: levofloxacin-dextrose 5 % 500 MG/100 ML PREMIX 100 MG IV (07:55)
[2025-01-14] MEDS: lidocaine-epi 1% 20 mL INJ 10 ML INJECTION (08:35)
--- NOTE | 2025-01-14 08:36 | P.OP_ITS ---
Operative Report Date of procedure: January 14, 2025 Pre-op diagnosis: Symptomatic cholelithiasis Post-op diagnosis: same Post-op findings: Unremarkable gallbladder Procedure done: Laparoscopic cholecystectomy Implants: N/A Specimens removed/disposition: Gallbladder sent to pathology Pathology: Gallbladder sent to pathology Surgeon: Jm Koehler MD Environmental Protection Officer: N/A Anesthesia: General Estimated blood loss (mL): 10 Complications: N/A Findings: Unremarkable gallbladder. Condition: stable Disposition: same day Brief History: 34-year-old female who presented with symptomatic cholelithiasis. Discussed risk and benefits and patient agreed to proceed with laparoscopic chol ecystectomy possible open. Procedure: I discussed the risks and benefits of laparoscopic cholecystectomy possible open, and obtained consent prior to proceeding to the operating room. SCDs were utilized. Prophylactic antibiotics were administered. General anesthesia was induced. The patient was placed supine, and was prepped and draped in the usual sterile fashion. Insufflation to 15mmHg was achieved using a Veress needle at York's point. A 12mm optiview trocar was placed at the umbilicus under direct visualization. The left upper quadrant was inspected, and no injuries were noted. Two 5mm ports were placed in the right upper quadrant, and a 12mm working port was placed in the epigastrium. The gallbladder was then retracted cephalad through the lateral RUQ port, and the infundibulum grabbed through the medial RUQ port and retracted laterally. The gallbladder was not inflammed. I proceeded to score the peritoneum over the medial aspect of the gallbladder using a laparoscopic hook with electrocautery. Then the infundibulum was retracted medially in order to score the peritoneum over the lateral aspect of the galbladder. Using a combination of energy and blunt dissection with the [place] and a Kittner dissector, the cystic artery and cystic duct were dissected. I then proceeded to dissect the cystic plate in order to to achieve the critical view of safety (CVS - hepatocystic triangle was cleared of fat and fibrous tissue, the lower one-third of the gallbladder was from the liver to expose the cystic plate, two and only two structures were seen entering the gallbladder, the cystic duct and the cystic artery). The cystic artery and the cystic duct were clipped three times (leaving two clips on the proximal end of both structures). I then proceeded to dissect the gallbladder off the liver using hook electrocautery. The specimen was placed in an endocatch bag and retrieved from the abdomen through the port on the epigastrium. I then inspected the gallbladder fossa and confirmed adequate hemostasis and the absence of any bile leaks. The gallbladder fossa was then cauterized again. Prior to ending the laparoscopic portion, I examined the rest of the abdomen and did not find any abnormalities or injuries. The abdomen was then desufflated, and the 12mm port at the umbilicus was closed using 0 vicryl on a UR needle after irrigating copiously. Skin was closed using 4-0 monocryl and surgical glue. The patient woke up from anesthesia and transferred to PACU without any complications.
[2025-01-14] MEDS: fentaNYL 50 mcg/mL INJ 2mL IVP ×2 (09:17→09:33)
[2025-01-14] MEDS: oxyCODONE 5 mg IR Tab/Cap PO (10:09)
--- NOTE | 2025-01-14 10:24 | ANE.PACU2 ---
Inpatient post-anesthesia follow up: Airway intact: Yes Vital signs: Temperature 98.7 F Pulse Rate 80 Respiratory Rate 17 Blood Pressure 124/78 Pulse Oximetry 98 Oxygen Delivery Me thod Room Air Oxygen Flow Rate 8 Fraction of Inspir ed Oxygen Hydration adequate: Yes Nausea and vomiting: No Pain level: 1 Mental status: Baseline
== END | disposition home or self-care (01) ==
PROVIDERS: PCP Physician Assistant; Visit Provider Student in an Organized Health Care Education/Training Program
PROC: 0FT44ZZ Resection of Gallbladder, Percutaneous Endoscopic Approach (ICD-10-PCS; CPT 47562; principal; 2025-01-14 08:05)
DX: K80.10 Calculus of gallbladder with chronic cholecystitis without obstruction (principal); K82.4 Cholesterolosis of gallbladder; F41.8 Other specified anxiety disorders; R00.2 Palpitations; R00.0 Tachycardia, unspecified; M06.9 Rheumatoid arthritis, unspecified
CPT/HCPCS: 47562; 88304; A4216; J1885; J1956; J2250; J2405; J2704; J3010; J3490; J7030; J9999

== ENCOUNTER 2025-01-22 09:47 | Day surgery (SDC) | payer BC, MEDICAID, SELFPAY ==
[2025-01-22] VITALS (10 sets, daily range): BP systolic 111–125; BP diastolic 70–81; PULSE 69–85; RESP 16–18; TEMP 36.2–36.5; O2SAT 94–100
[2025-01-22] MEDS: acetaminophen 1,000 MG/100 ML PIGGYBACK 400 MG IV (10:41)
--- NOTE | 2025-01-22 11:03 | ANES.PREANE2 ---
Pre-Anesthetic Assessment Height/Weight: Height 1.65 m Weight 99.79 kg Temp Pulse Resp BP Pulse Ox O2 Del Method 97.7 F 80 18 124/80 100 Room Air 01/22/25 10:12 01/22/25 10:12 01/22/25 10:12 01/22/25 10:12 01/22/25 10:12 01/22/25 10:12 Operation Date: 01/22/25 11:35 Proposed Procedures p RIGHT Knee Diagnostic and Surgical Arthroscopic W/ PARTIAL Medial Meniscectomy(Right) - Rell Hou DO s Loose Body Removal(Right) - Rell Hou DO Familial anesthetic complications: None Was Beta Sylvia taken within 24 hours: Yes Was Clonidine taken within 24 hours: N/A Last intake: Intake Last Liquid Date 01/21/25 Last Liquid Time 23:00 Last Solid Date 01/21/25 Last Solid Time 20:30 Social No alcohol and No tobacco Exam alert, oriented x 3, clear to auscultation bilaterally and regular rate & rhythm Airway Mallampati: Class II Dentition: full Anesthetic Plan ASA status: 2 Anesthesia: General Risk of > 500 ml blood loss (7ml/kg in children): No Medications/Allergies Home Medications ?Medication ?Instructions ?Recorded ?Confirmed ?Last Taken ?Type ibuprofen 200 mg tablet (Advil) 600 mg PO Q6H PRN Pain 01/19/22 01/22/25 01/20/25 History spironolactone 25 mg tablet 25 mg PO DAILY 07/25/23 01/22/25 01/21/25 History cholecalciferol (vitamin D3) 125 125 mcg PO DAILY 02/11/24 01/22/25 01/21/25 History mcg (5,000 unit) tablet (Vitamin D3) propranolol 20 mg tablet 20 mg PO BID 02/11/24 01/22/25 01/21/25 History valacyclovir 1 gram tablet 1,000 mg PO Q12H PRN cold/fever 09/03/24 01/22/25 Unknown History blister amitriptyline 25 mg tablet 25 mg PO BEDTIME 12/17/24 01/22/25 01/21/25 History hydroxychloroquine 200 mg tablet 200 mg PO BID #180 tabs 12/17/24 01/22/25 01/21/25 Rx fremanezumab-vfrm 225 mg/1.5 mL 225 mg SUBCUT Q1-2M Migraine 12/23/24 01/22/25 12/24/24 History subcutaneous auto-injector (Ajovy) Headache ondansetron 4 mg disintegrating 4 mg PO Q6H PRN nausea and 12/23/24 01/22/25 Unknown Rx tablet vomiting #14 tabs semaglutide 0.25 mg or 0.5 mg (2 0.25 mg SUBCUT .WEEKLY 12/25/24 01/22/25 01/03/25 History mg/3 mL) subcutaneous pen injector (Ozempic) adalimumab 40 mg/0.4 mL 40 mg SUBCUT .2WEEK 01/22/25 01/22/25 12/16/24 History subcutaneous pen kit (Humira(CF) Pen) Allergies Allergy/AdvReac Type Severity Reaction Status Date / Time minocycline Allergy Severe severe Verified 01/14/25 06:42 hives, jiont swelling vancomycin Allergy Severe red man Verified 01/14/25 06:42 syndrome Penicillins Allergy Intermediate ALGY-Hives Verified 01/14/25 06:42 sulfamethoxazole (From Allergy Mild fine white Verified 01/14/25 06:42 Bactrim) rash/ itching trimethoprim (From Bactrim) Allergy Mild fine white Verified 01/14/25 06:42 rash/ itching amoxicillin Allergy hives Verified 01/14/25 06:42 Corticosteroids Allergy ADR-Headach Verified 01/15/25 15:36 (Glucocorticoids) e leflunomide AdvReac Intermediate hair loss Verified 01/14/25 06:42 Current Medications Generic Name Dose Route Start Last Admin Trade Name Freq PRN Reason Stop Dose Admin Sodium Chloride 1,000 mls @ 30 mls/hr 01/22/25 10:15 01/22/25 10:38 Sodium Chloride 0.9% IV 01/23/25 10:14 30 mls/hr .Q24H TONY Administration PFSH Anesthesia Medical History (Updated 12/31/24 @ 00:00 by CAYLA Lazo) Immunization counseling Seronegative rheumatoid arthritis of both hands Shortness of breath High risk medication use Anxiety Depression Chronic migraine Inflammatory arthritis Palpitation Allergy to multiple antibiotics Failure of outpatient treatment Tachycardia Pneumonia RAYNE positive Surgical History H/O tubal ligation [place] teeth removed History of hysterectomy 2020 History of colonoscopy 2020 Family History Mother Diabetes pre-stage Arthritis Denies family history of Colon cancer Ovarian cancer Clotting disorder Heart disease Hyperlipidemia Breast cancer Suicide Bleeding disorder Hypertension Uterine cancer Stroke Social History Smoking and tobacco/nicotine status: never used tobacco/nicotine Alcohol intake: current Alcohol intake frequency: few times a week Alcohol type: wine and hard liquor Substance/Drug Use: never Lives independently: Yes Household members: spouse and children Marital status: Data Anesthesia Cardiac Studies: Holter Monitor 11/14/22
--- NOTE | 2025-01-22 11:09 | W.PM.OPSFHP ---
Same Day Surgery H&P Indication for Procedure/HPI DATE OF PROCEDURE: January 22, 2025 CHIEF COMPLAINT/INDICATIONFOR SURGICAL PROCEDURE: Right knee medial meniscus tear, loose body PREOP DIAGNOSIS: Right knee medial meniscus tear, loose body PLANNED PROCEDURE: Operation Date: 01/22/25 11:35 Proposed Procedures p RIGHT Knee Diagnostic and Surgical Arthroscopic W/ PARTIAL Medial Meniscectomy(Right) - Rell Hou, DO s Loose Body Removal(Right) - Rell Hou, DO Medications/Allergies* Home Medications ?Medication ?Instructions ?Recorded ?Confirmed ?Type ibuprofen 200 mg tablet (Advil) 600 mg PO Q6H PRN Pain 01/19/22 01/22/25 History spironolactone 25 mg tablet 25 mg PO DAILY 07/25/23 01/22/25 History cholecalciferol (vitamin D3) 125 125 mcg PO DAILY 02/11/24 01/22/25 History mcg (5,000 unit) tablet (Vitamin D3) propranolol 20 mg tablet 20 mg PO BID 02/11/24 01/22/25 History valacyclovir 1 gram tablet 1,000 mg PO Q12H PRN cold/fever 09/03/24 01/22/25 History blister amitriptyline 25 mg tablet 25 mg PO BEDTIME 12/17/24 01/22/25 History fremanezumab-vfrm 225 mg/1.5 mL 225 mg SUBCUT Q1-2M Migraine 12/23/24 01/22/25 History subcutaneous auto-injector (Ajovy) Headache semaglutide 0.25 mg or 0.5 mg (2 0.25 mg SUBCUT .WEEKLY 12/25/24 01/22/25 History mg/3 mL) subcutaneous pen injector (Ozempic) adalimumab 40 mg/0.4 mL 40 mg SUBCUT .2WEEK 01/22/25 01/22/25 History subcutaneous pen kit (Humira(CF) Pen) Allergies/Adverse Reactions Allergy/AdvReac Type Severity Reaction Status Date / Time minocycline Allergy Severe severe Verified 01/14/25 06:42 hives, jiont swelling vancomycin Allergy Severe red man Verified 01/14/25 06:42 syndrome Penicillins Allergy Intermediate ALGY-Hives Verified 01/14/25 06:42 sulfamethoxazole (From Allergy Mild fine white Verified 01/14/25 06:42 Bactrim) rash/ itching trimethoprim (From Bactrim) Allergy Mild fine white Verified 01/14/25 06:42 rash/ itching amoxicillin Allergy hives Verified 01/14/25 06:42 Corticosteroids Allergy ADR-Headach Verified 01/15/25 15:36 (Glucocorticoids) e leflunomide AdvReac Intermediate hair loss Verified 01/14/25 06:42 Current Medications: Generic Name Dose Route Start Last Admin Trade Name Freq PRN Reason Stop Dose Admin Sodium Chloride 1,000 mls @ 30 mls/hr 01/22/25 10:15 01/22/25 10:38 Sodium Chloride 0.9% IV 01/23/25 10:14 30 mls/hr .Q24H TONY Administration Pertinent History/Comorbid Conditions* Medical History (Updated 12/31/24 @ 00:00 by CAYLA Lazo) Immunization counseling Seronegative rheumatoid arthritis of both hands Shortness of breath High risk medication use Anxiety Depression Chronic migraine Inflammatory arthritis Palpitation Allergy to multiple antibiotics Failure of outpatient treatment Tachycardia Pneumonia RAYNE positive Surgical History (Updated 06/12/23 @ 11:04 by Matty Castillo MD) H/O tubal ligation [place] teeth removed History of hysterectomy 2020 History of colonoscopy 2020 Family History (Updated 12/15/21 @ 09:01 by Rosa Glaser RN) Diabetes Mother pre-stage Arthritis Mother Denies family history of Colon cancer Ovarian cancer Clotting disorder Heart disease Hyperlipidemia Breast cancer Suicide Bleeding disorder Hypertension Uterine cancer Stroke Social History Smoking and tobacco/nicotine status: never used tobacco/nicotine Alcohol intake: current Alcohol intake frequency: few times a week Alcohol type: wine and hard liquor Substance/Drug Use: never Lives independently: Yes Household members: spouse and children Marital status: Pertinent Exam Findings alert, oriented x 3, operative site marked and procedure specific exam findings Please refer to detailed orthopedic examination on 11/26/2024 listed below: Right Knee exam -ROM full active range of motion with no pain -Medial joint line tenderness tenderness posterior aspect of the joint line, TTP over patella as well. -Negative Becca's -Stable varus valgus stress -Positive Arslan's test with significant pain but no palpable click Recommendations Risks and benefits of procedure reviewed and Patient/family agree to proceed Surgery/Procedure today Other Plans: Plan to proceed to the OR today for right knee diagnostic and surgical arthroscopy with partial medial meniscectomy versus repair with loose body removal. Patient understands the ins and outs procedure the risk benefits complication alternatives. Understand risk of surgery patient elects proceed with surgical intervention. All questions answered at this time. Will proceed with surgery today. Coding Level of Care Code Acute Code for Chg Fwd
[2025-01-22] MEDS: ceFAZolin 2,000 MG in sodium chloride 0.9% (plus) 50 ML 100 MG IV (11:45)
[2025-01-22] MEDS: lidocaine-epi 2% PF 1:200,000 20 mL SDV 40 ML XX (12:25)
--- NOTE | 2025-01-22 13:01 | P.BOP_ITS ---
Date of Procedure: [January 22, 2025] Surgeon: [Dr. 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 Partial medial meniscus tear. 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 Partial medial meniscus tear.]
[2025-01-22] MEDS: ondansetron 2 mg/ML SDV 2 mL 4 MG IVP (13:39)
--- NOTE | 2025-01-22 14:11 | PM.PACU ---
PACU note Narrative: Patient is a 34-year-old female that underwent a right knee arthroscopy. Pt transferred to PACU in stable condition. Dressing is dry. pt is awake and alert. pt can wiggle toes and plantarflex and dorsiflex foot. pt able to perform straight leg raise, Femoral nerve intact. Distal pulses are palpable toes are warm and well-perfused. Cap refill is normal and under 2 seconds. Sensation to foot is intact. Pain is controlled. Exam: awake Disposition: discharged
--- NOTE | 2025-01-22 14:17 | P.OP_ITS ---
Operative Report Date of procedure: January 22, 2025 Surgeon: Rell Hou DO Screed Operator: Rigo Hou PA-C: PA was necessary for assistance in this case with leg positioning, assistance with arthroscopic instrumentation and performance of partial medial meniscectomy and loose body removal, assistance in wound closure and dressing application. Procedure: Preoperative diagnosis: Right knee medial meniscus tear, loose body Post-op diagnosis: Right?knee?medial meniscus tear Right knee loose body Right?knee?patellofemoral chondromalacia Procedure done: Right?knee?diagnostic and surgical arthroscopy partial medial meniscectomy Right?knee?diagnostic and surgical arthroscopy loose body removal Right?knee?diagnostic and surgical arthroscopy with patellofemoral compartment chondroplasty Surgeon: Rell Hou DO Estimated blood loss: 5mL Tourniquet: No tourniquet was used IV fluids: 700 cc Complications: None Findings: See operative report narrative Condition: stable Disposition: same day Brief History: Patient is a 34-year-old female with right?knee?pain.? Patient has failed conservative treatment who has been worked up for right??knee?pain in the outpatient setting. MRI findings consistent with tear of the medial meniscus. 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 Unfortunately she had new injury worsening pain in the left knee which now demonstrates a complex tear throughout the medial meniscus of the right knee. Talked in the office about treatment options patient would like to proceed with a right knee diagnostic and surgical arthroscopy with partial medial meniscectomy versus repair with loose body removal. Patient understand the ins and outs of the procedure the risk benefits complication alternatives to treatment options.? Understanding risk of surgery they agree to proceed with surgical intervention.? Patient understand this may not provide patient with complete symptomatic relief of? pain as patient does have some underlying arthritis.? Understanding this and patient agree to proceed with surgical intervention all questions answered. Procedure: Patient seen and evaluated in the preoperative holding area.? Consent was reviewed and signed with patient.? Correct extremity was then marked.? Patient seen evaluated Anesthesia Department once cleared for surgery patient was taken back to the operative suite.? Patient was transported onto the OR table in supine position.? All bony prominences well-padded patient was appropriate secured to the bed.? Once appropriately anesthetized a nonsterile tourniquet was applied to the right thigh.? The right lower extremity was then prepped and draped in standard orthopedic fashion.? Final timeout performed.? Patient received appropriate preoperative antibiotics. Patient received local anesthetic of lidocaine with epinephrine into the joint as well as around the portal sites.? No tourniquet was inflated A standard 2 portal vertical incision diagnostic and surgical arthroscopy of the right?knee?was performed in standard fashion.? Small stab incision made in the inferolateral portal introduced trocar and arthroscope into the suprapatellar pouch.? Suprapatellar pouch was subsequently visualized and found to have no significant synovitis. ?The medial gutter was free of loose bodies I then introduced the arthroscope into the medial compartment.? Within the medial compartment I then established my inferior medial working portal utilizing spinal needle outside in technique.? Once established I then visualized our articular cartilage of the medial compartment with a valgus stress.? Patient was found to have grade 2 chondromalacia throughout the medial compartment.? Next I inspected the meniscus.? With an arthroscopic probe was utilized to visual? all aspects of the meniscus.? Meniscal root was found to be intact.? Patient was found to have a complex tear extending from the anterior horn body and in the posterior horn of the meniscus these tears had multiple different directions of variances consistent with a horizontal longitudinal and radial tear this was throughout this entire area patient had new tears propagated around the previous repair site at this point in time this was not repairable and decision was made for partial medial meniscectomy at this point in time I introduced a basket forceps arthroscopic shaver and performed a partial medial meniscectomy to stable meniscal tissue. Unfortunately I did have to excise roughly 50 to 70% of the meniscus due to the complication of the tear and the significant radial and hor izontal components. The remanent of the meniscus had cut out the entirety of the tear to its entirety and subsequently utilized a wand to kneel the edges I did remove the excess suture from the previous pair that was down some of the tear so that was in the way of the partial medial meniscectomy. At this point in time this completed the partial medial meniscectomy. Once again there is grade II chondromalacia throughout the medial compartment. This completed medial compartment work. Next a introduced the arthroscope to the intercondylar notch.? PCL and ACL were intact. Patient did have a loose body in the intercondylar space which subsequently was grabbed with a grasper and removed to its entirety. Next I introduced the arthroscope into the lateral compartment the lateral compartment was found to have grade 1 chondromalacia.? Lateral meniscus was found to be intact.? The root was intact.? Given the grade 1 chondromalacia there is no unstable cartilage pieces to perform chondroplasty.? This completed my work of the lateral compartment and then performed a synovectomy of the lateral compartment.? Next of the arthroscope was placed into the lateral gutter and this was free of loose bodies.? Finally I reintroduced the arthroscope into the patellofemoral compartment.? The patellofemoral was found to have grade 2 chondromalacia predominantly throughout the trochlea but there was a focal grade 3 on the undersurface of the patella I then subsequently utilized an arthroscopic shaver and thermal wand to perform a patellofemoral compartment chondroplasty of the undersurface of the patella. This was performed to stable articular tissue. ? This completed my work of the patellofemoral space.? I then switch my portal sites to the medial working portal.? Completed the rest of the diagnostic and surgical arthroscopy and no further synovectomy was needed. This completed the procedure. All fluid was suctioned from the joint.? ?All instruments were withdrawn.? Terell l sites were closed with interrupted nylon suture.? portal sites were then covered with with Xeroform 4 x 4's ABD Curlex and Cedrick wrap.? Patient was then subsequently awakened from anesthesia and taken to PACU in stable condition. Disposition: Patient taken to PACU in stable condition recovering well.? Will receive appropriate discharge structure as well as pain medication postoperatively as well as? DVT prophylaxis.we will have patient follow-up with us in the office in 2 weeks.? We will weightbearing as tolerated to the right lower extremity.? Patient understands and agrees with current plan.? All questions answered.
[2025-01-22] MEDS: HYDROcodone-acetaminophen 5-325 mg Tablet 1 TAB PO (14:20)
--- NOTE | 2025-01-22 15:35 | ANE.PACU2 ---
Inpatient post-anesthesia follow up: Airway intact: Yes Vital signs: Temperature 97.1 F Pulse Rate 80 Respiratory Rate 16 Blood Pressure 123/74 Pulse Oximetry 94 Oxygen Delivery Me thod Room Air Oxygen Flow Rate Fraction of Inspir ed Oxygen Hydration adequate: Yes Nausea and vomiting: No Pain level: 1 Mental status: Baseline
== END 2025-01-22 14:25 | disposition home or self-care (01) ==
PROVIDERS: PCP Physician Assistant; Visit Provider Student in an Organized Health Care Education/Training Program
PROC: (CPT 29881; principal; 2025-01-22 11:35)
PROC: (CPT 29881; 2025-01-22 11:35)
DX: S83.241A Other tear of medial meniscus, current injury, right knee, initial encounter (principal); X58.XXXA Exposure to other specified factors, initial encounter; M23.41 Loose body in knee, right knee; M22.41 Chondromalacia patellae, right knee; F41.8 Other specified anxiety disorders; R00.2 Palpitations; R00.0 Tachycardia, unspecified
CPT/HCPCS: 29881; J0131; J0690; J1885; J2250; J2405; J2704; J3010; J7030; J9999

== ENCOUNTER → 2025-01-30 17:22 | Outpatient (BNVA) | payer BC, MEDICAID, SELFPAY | PROVIDERS: PCP Physician Assistant; Visit Provider Registered Nurse Neonatal Intensive Care | DX: R30.0 Dysuria (principal); R39.9 Unspecified symptoms and signs involving the genitourinary system | CPT/HCPCS: 81000; 87077; 87086; 87184 ==

== ENCOUNTER 2025-02-20 12:11 | Outpatient (CLI) | payer BC, MEDICAID, SELFPAY ==
[2025-02-20 13:03] LABS: Hematocrit 40.0 % (36-47); Hemoglobin 13.10 g/dL (11.27-16.99); Mean Corpuscular HGB Conc 32.8 g/dL (30-55); Mean Corpuscular Hemoglobin 28.9 pg (27-33); Mean Corpuscular Volume 88.1 fl (85-98); Nucleated Red Blood Cells % 0 %; Platelet Count 241 10^3/cmm (157-399); Red Blood Count 4.54 10^6/uL (3.85-5.65); White Blood Count 9.14 10^3/uL (3.29-11.43)
[2025-02-20 13:21] LABS: Alanine Aminotransferase 35 U/L (0-33); Albumin Level 4.7 g/dL (3.5-5.2); Alkaline Phosphatase 76 U/L (35-105); Aspartate Amino Transferase 21 U/L (0-32); Globulin 3.0 g/dL (1.3-4.6); Total Protein 7.7 g/dL (6.6-8.7)
== END 2025-02-20 12:12 | disposition home or self-care (01) ==
PROVIDERS: PCP Physician Assistant; Visit Provider Internal Medicine Rheumatology
DX: Z79.899 Other long term (current) drug therapy (principal)
CPT/HCPCS: 36415; 80076; 82565; 85025; 85651; 86140